=== PATIENT | female | born 1960 | race Caucasian/White ===

== ENCOUNTER 2019-07-21 16:53 | Inpatient (IN) | payer OTHER ==
[2019-07-21 19:17] LABS: BASO % 0.4 % (0-2.0); EOS % 1.1 % (0-4.5); HEMATOCRIT 33.9 % (32.4-45.2); HEMOGLOBIN 11.6 GM/dL (10.7-15.3); LYMPH % 32.5 % (8-40); MCH 36.9 pg (25.7-33.7); MCHC 34.1 g/dl (32.0-36.0); MEAN CELL VOLUME 107.9 fl (80-96); MEAN PLT VOLUME 9.2 fl (7.5-11.1); MONO % 12.8 % (3.8-10.2); NEUT % 53.2 % (42.8-82.8); PLATELET COUNT 222 K/MM3 (134-434); RBC 3.14 M/mm3 (3.60-5.2); RDW 15.3 % (11.6-15.6)
[2019-07-21 19:38] LABS: INR 1.8 (0.83-1.09); PROTHROMBIN TIME (PATIENT) 21.4 SEC (9.7-13.0)
[2019-07-21 19:41] LABS: ACTIVATED PTT 32.1 SECONDS (25.2-36.5)
[2019-07-21 20:04] LABS: ALBUMIN 1.6 g/dl (3.4-5.0); BILIRUBIN,TOTAL 3.6 mg/dL (0.2-1); BLOOD UREA NITROGEN 3.3 mg/dL (7-18); CALCIUM 7.2 mg/dL (8.5-10.1); CREATININE 0.8 mg/dL (0.55-1.3); MAGNESIUM 1.7 mg/dL (1.8-2.4); TOT PROT 9.1 g/dl (6.4-8.2)
[2019-07-21 20:05] LABS: POTASSIUM 1.8 mmol/L (3.5-5.1)
[2019-07-21] MEDS ORDERED: MAGNESIUM SULF 50% (8.12 MEQ/2 ML-1 GM VIAL) IVPB ONE (20:10)
[2019-07-21] MEDS ORDERED: LACTULOSE 20 GM/30 ML UDC (FOR ORAL USE ONLY) PO ONE (20:18)
[2019-07-21] MEDS ORDERED: POTASSIUM CHLORIDE ORAL LIQUID 20 MEQ/15 ML PO ONE (20:19)
[2019-07-21] MEDS ORDERED: FOLIC ACID INJECTION - 1 MG, THIAMINE HCL 100 MG, MULTIVIT INJECTION ADULT 10 ML in SOD... IVPB ONE (20:21)
[2019-07-21] MEDS ORDERED: LACTULOSE 20 GM/30 ML UDC (FOR ORAL USE ONLY) ONE (20:26)
[2019-07-21] MEDS ORDERED: POTASSIUM CHLORIDE ORAL LIQUID 20 MEQ/15 ML ONE (20:26)
[2019-07-21] MEDS ORDERED: MAGNESIUM 1GM/D5W - 2 GM/200 ML IVPB IVPB ONE (20:26)
--- NOTE | 2019-07-21 20:27 | PDOC ---
*Physical Exam - Vital Signs Last Vital Signs Temp Pulse Resp BP Pulse Ox 98 F 96 H 22 H 119/60 98 07/21/19 17:04 07/21/19 17:04 07/21/19 17:04 07/21/19 17:04 07/21/19 17:04 - Physical Exam 07/21/19 20:31 gen: awake, alert oriented to person place and time, jaundiced, confused at times consistent with hepatic encephalopathy heart: +s1s2 reg lungs: cta b/l, tachypnic abd: soft, nt, ascites, fluid wave ext: no c/c/e Heart Score/ECG Review - ECG Intrepretation Comment:: 07/21/19 20:49 sinus at 98, 1st degree av block, nl axis, qtc 566, abnl ekg ED Treatment Course - LABORATORY CBC & Chemistry Diagram: 07/21/19 17:34 07/21/19 17:34 - ADDITIONAL ORDERS Additional order review: Laboratory Results 07/21/19 07/21/19 07/21/19 17:34 17:34 17:34 PT with INR 21.40 H INR 1.80 H PTT (Actin FS) 32.1 Sodium 135 L Potassium 1.8 L* Chloride 90 L Carbon Dioxide 32 Anion Gap 12 BUN 3.3 L Creatinine 0.8 Est GFR (CKD-EPI)AfAm 93.53 Est GFR (CKD-EPI)NonAf 80.70 Random Glucose 120 H Lactic Acid 5.8 H* Calcium 7.2 L Magnesium 1.7 L Total Bilirubin 3.6 H AST 168 H ALT 48 Alkaline Phosphatase 137 H Ammonia Creatine Kinase 1303 H Troponin I 0.02 Total Protein 9.1 H Albumin 1.6 L Lipase 182 07/21/19 17:34 PT with INR INR PTT (Actin FS) Sodium Potassium Chloride Carbon Dioxide Anion Gap BUN Creatinine Est GFR (CKD-EPI)AfAm Est GFR (CKD-EPI)NonAf Random Glucose Lactic Acid Calcium Magnesium Total Bilirubin AST ALT Alkaline Phosphatase Ammonia 117.40 H Creatine Kinase Troponin I Total Protein Albumin Lipase 07/21/19 17:34 RBC 3.14 L MCV 107.9 H MCHC 34.1 RDW 15.3 D MPV 9.2 Neutrophils % 53.2 Lymphocytes % 32.5 D Monocytes % 12.8 H Eosinophils % 1.1 Basophils % 0.4 Medical Decision Making - Medical Decision Making 07/21/19 20:24 pt signed out from the midlevel provider for further eval of abnl labs -pt with ammonia >100 -pt with hx of etoh abuse, drinks daily -now jaundiced, ascites and distended abd -no prior hx of cirrhosis, but concern for liver failure and hepatic encephalopathy -elevated inr -k 1.8 mag 1.7 -pt will need icu admission for electrolyte abnl and hepatic encephalopathy 07/21/19 20:27 ultrasound ordered 07/21/19 21:21 resident discussed the case with gi i have discussed the case with enrique pt will be accepted to the ICU Discharge - Discharge Information Problems reviewed: Yes Clinical Impression/Diagnosis: Abdominal pain, Jaundice, Ascites, Hypokalemia, Hypomagnesemia, Alcohol abuse, Hepatic encephalopathy, Hypoalbuminemia Condition: Critical - Admission Yes - Follow up/Referral - Patient Discharge Instructions - Post Discharge Activity
--- NOTE | 2019-07-21 20:28 | PDOC ---
History of Present Illness - General Chief Complaint: Substance Abuse Stated Complaint: ABD PAIN Time Seen by Provider: 07/21/19 17:38 History Source: Patient Exam Limitations: No Limitations Past History - Past Medical History Allergies/Adverse Reactions: Allergies Allergy/AdvReac Type Severity Reaction Status Date / Time No Known Allergies Allergy Verified 07/21/19 17:01 Home Medications: Ambulatory Orders Citalopram Hydrobromide [Celexa -] 40 mg PO DAILY 03/02/14 Haloperidol 2 mg PO DAILY 03/02/14 Quetiapine Fumarate [Seroquel -] 200 mg PO HS 03/02/14 hydrOXYzine PAMOATE [Vistaril -] 50 mg PO TID 03/02/14 Asthma: Yes COPD: No HTN: Yes Liver Disease: Yes Other medical history: ALCOHOLISM, BEER DAILY - Psycho Social/Smoking Cessation Hx Smoking Status: Yes Smoking History: Never smoked Number of Cigarettes Smoked Daily: 3 'Breaking Loose' booklet given: 03/02/14 Hx Alcohol Use: Yes (daily) Drug/Substance Use Hx: No *Physical Exam - Vital Signs Last Vital Signs Temp Pulse Resp BP Pulse Ox 98 F 96 H 22 H 119/60 98 07/21/19 17:04 07/21/19 17:04 07/21/19 17:04 07/21/19 17:04 07/21/19 17:04 ED Treatment Course - LABORATORY CBC & Chemistry Diagram: 07/21/19 17:34 07/21/19 17:34 - ADDITIONAL ORDERS Additional order review: Laboratory Results 07/21/19 07/21/19 07/21/19 17:34 17:34 17:34 PT with INR 21.40 H INR 1.80 H PTT (Actin FS) 32.1 Sodium 135 L Potassium 1.8 L* Chloride 90 L Carbon Dioxide 32 Anion Gap 12 BUN 3.3 L Creatinine 0.8 Est GFR (CKD-EPI)AfAm 93.53 Est GFR (CKD-EPI)NonAf 80.70 Random Glucose 120 H Lactic Acid 5.8 H* Calcium 7.2 L Magnesium 1.7 L Total Bilirubin 3.6 H AST 168 H ALT 48 Alkaline Phosphatase 137 H Ammonia Creatine Kinase 1303 H Creatine Kinase Index 0.3 CK-MB (CK-2) 4.2 H Troponin I 0.02 Total Protein 9.1 H Albumin 1.6 L Lipase 182 07/21/19 17:34 PT with INR INR PTT (Actin FS) Sodium Potassium Chloride Carbon Dioxide Anion Gap BUN Creatinine Est GFR (CKD-EPI)AfAm Est GFR (CKD-EPI)NonAf Random Glucose Lactic Acid Calcium Magnesium Total Bilirubin AST ALT Alkaline Phosphatase Ammonia 117.40 H Creatine Kinase Creatine Kinase Index CK-MB (CK-2) Troponin I Total Protein Albumin Lipase 07/21/19 17:34 RBC 3.14 L MCV 107.9 H MCHC 34.1 RDW 15.3 D MPV 9.2 Neutrophils % 53.2 Lymphocytes % 32.5 D Monocytes % 12.8 H Eosinophils % 1.1 Basophils % 0.4 - RADIOLOGY Radiology Studies Ordered: Category Date Time Status CHEST X-RAY PORTABLE* [RAD] Stat Radiology 07/21/19 20:22 Ordered
--- NOTE | 2019-07-21 20:35 | PDOC ---
History of Present Illness - General Chief Complaint: Substance Abuse Stated Complaint: ABD PAIN Time Seen by Provider: 07/21/19 17:38 History Source: Patient Exam Limitations: No Limitations - History of Present Illness Initial Comments: 07/21/19 20:28 59-year-old female with history of hypertension, anxiety, depression and alcohol abuse presents accompanied by son with complaint of constant general abdominal pain, vomiting for 4 days. Son reports patient has been incoherent and confused for the past 2 days. Last alcohol drink was yesterday, denies chest pain, shortness of breath, diarrhea, urinary complaints. Last bowel movement was 2 days ago. ROS: GENERAL/CONSTITUTIONAL: Positive confusion, no fever, chills, weakness, dizziness HEAD, EYES, EARS, NOSE AND THROAT: No changes in vision, No ear pain or discharge, No sore throat CARDIOVASCULAR: No chest pain RESPIRATORY: No shortness of breath or cough GASTROINTESTINAL: Positive abdominal pain, vomiting, denies diarrhea GENITOURINARY: No dysuria MUSCULOSKELETAL: No neck or back pain SKIN: No rash NEUROLOGIC: No headache, vertigo, loss of consciousness, or loss of sensation PE: GENERAL: Ill-appearing, appears uncomfortable HEAD: NCAT EYES: Icteric, pupils equal, round and reactive to light ENT: pharynx: no erythema, no exudate, uvula midline NECK: supple CHEST: nontender RESP: clear, no w/r/r CARDIO: rrr, no m/g/r ABD: +BS, soft, tenderness to palpation throughout, distention BACK: no midline spinal ttp, no CVAT EXTREMITIES: Normal range of motion, no pitting edema NEUROLOGICAL: Alert and oriented x3 SKIN: Warm, Dry Is this a multiple visit Asthma Patient?: No Past History - Past Medical History Allergies/Adverse Reactions: Allergies Allergy/AdvReac Type Severity Reaction Status Date / Time No Known Allergies Allergy Verified 07/21/19 17:01 Home Medications: Ambulatory Orders Citalopram Hydrobromide [Celexa -] 40 mg PO DAILY 03/02/14 Haloperidol 2 mg PO DAILY 03/02/14 Quetiapine Fumarate [Seroquel -] 200 mg PO HS 03/02/14 hydrOXYzine PAMOATE [Vistaril -] 50 mg PO TID 03/02/14 Asthma: Yes COPD: No HTN: Yes Liver Disease: Yes Other medical history: ALCOHOLISM, BEER DAILY - Psycho Social/Smoking Cessation Hx Smoking Status: Yes Smoking History: Never smoked Number of Cigarettes Smoked Daily: 3 'Breaking Loose' booklet given: 03/02/14 Hx Alcohol Use: Yes (daily) Drug/Substance Use Hx: No *Physical Exam - Vital Signs Last Vital Signs Temp Pulse Resp BP Pulse Ox 98 F 96 H 22 H 119/60 98 07/21/19 17:04 07/21/19 17:04 07/21/19 17:04 07/21/19 17:04 07/21/19 17:04 ED Treatment Course - LABORATORY CBC & Chemistry Diagram: 07/21/19 17:34 07/21/19 17:34 - ADDITIONAL ORDERS Additional order review: Laboratory Results 07/21/19 07/21/19 07/21/19 17:34 17:34 17:34 PT with INR 21.40 H INR 1.80 H PTT (Actin FS) 32.1 Sodium 135 L Potassium 1.8 L* Chloride 90 L Carbon Dioxide 32 Anion Gap 12 BUN 3.3 L Creatinine 0.8 Est GFR (CKD-EPI)AfAm 93.53 Est GFR (CKD-EPI)NonAf 80.70 Random Glucose 120 H Lactic Acid 5.8 H* Calcium 7.2 L Magnesium 1.7 L Total Bilirubin 3.6 H AST 168 H ALT 48 Alkaline Phosphatase 137 H Ammonia Creatine Kinase 1303 H Creatine Kinase Index 0.3 CK-MB (CK-2) 4.2 H Troponin I 0.02 Total Protein 9.1 H Albumin 1.6 L Lipase 182 07/21/19 17:34 PT with INR INR PTT (Actin FS) Sodium Potassium Chloride Carbon Dioxide Anion Gap BUN Creatinine Est GFR (CKD-EPI)AfAm Est GFR (CKD-EPI)NonAf Random Glucose Lactic Acid Calcium Magnesium Total Bilirubin AST ALT Alkaline Phosphatase Ammonia 117.40 H Creatine Kinase Creatine Kinase Index CK-MB (CK-2) Troponin I Total Protein Albumin Lipase 07/21/19 17:34 RBC 3.14 L MCV 107.9 H MCHC 34.1 RDW 15.3 D MPV 9.2 Neutrophils % 53.2 Lymphocytes % 32.5 D Monocytes % 12.8 H Eosinophils % 1.1 Basophils % 0.4 Medical Decision Making - Medical Decision Making 07/21/19 20:32 59-year-old female with history of hypertension, anxiety, depression, alcohol abuse presenting with abdominal pain and vomiting for 4 days. Accompanied by son who states patient has been confused for the past 2 days. Labs, EKG, chest x-ray and CTAP w/con ordered Labs reviewed : K 1.8 lactate 5.8 Mg 1.7 Patient placed on a monitor transferred over to Dr. Guaman in the main ED for critical care and ICU admission Discharge - Discharge Information Problems reviewed: Yes Clinical Impression/Diagnosis: Abdominal pain Qualifiers: Abdominal location: generalized Qualified Code(s): R10.84 - Generalized abdominal pain Condition: Critical - Follow up/Referral - Patient Discharge Instructions - Post Discharge Activity
--- NOTE | 2019-07-21 20:36 | PDOC ---
*Physical Exam - Vital Signs Last Vital Signs Temp Pulse Resp BP Pulse Ox 98 F 96 H 22 H 119/60 98 07/21/19 17:04 07/21/19 17:04 07/21/19 17:04 07/21/19 17:04 07/21/19 17:04 - Physical Exam 07/21/19 20:31 Patient was signed out to me by Emily Terry for deranged lab values in the setting of ETOH abuse. Patient is a 59 yo F with hx of ETOH abuse (per the patient, she drinks hard liquor and now using beers per the son) presents to the emergency department with AMS in the setting of a distended abdomen. Per the patient, she has had a distended abdomen with diffuse pain for more than a week. She denies a hx of liver disease or needing a paracentesis. Per the son, he states that she has been confused this week and was mixing up her sentences. Denies the following: fevers, chills, chest pain, SOB, nausea, dysuria, hematuria, and leg pain/ swelling. Allergies: NKDA ED Treatment Course - LABORATORY CBC & Chemistry Diagram: 07/28/19 06:45 07/28/19 06:45 - ADDITIONAL ORDERS Additional order review: Laboratory Results 07/21/19 07/21/19 07/21/19 17:34 17:34 17:34 PT with INR 21.40 H INR 1.80 H PTT (Actin FS) 32.1 Sodium 135 L Potassium 1.8 L* Chloride 90 L Carbon Dioxide 32 Anion Gap 12 BUN 3.3 L Creatinine 0.8 Est GFR (CKD-EPI)AfAm 93.53 Est GFR (CKD-EPI)NonAf 80.70 Random Glucose 120 H Lactic Acid 5.8 H* Calcium 7.2 L Magnesium 1.7 L Total Bilirubin 3.6 H AST 168 H ALT 48 Alkaline Phosphatase 137 H Ammonia Creatine Kinase 1303 H Creatine Kinase Index 0.3 CK-MB (CK-2) 4.2 H Troponin I 0.02 Total Protein 9.1 H Albumin 1.6 L Lipase 182 07/21/19 17:34 PT with INR INR PTT (Actin FS) Sodium Potassium Chloride Carbon Dioxide Anion Gap BUN Creatinine Est GFR (CKD-EPI)AfAm Est GFR (CKD-EPI)NonAf Random Glucose Lactic Acid Calcium Magnesium Total Bilirubin AST ALT Alkaline Phosphatase Ammonia 117.40 H Creatine Kinase Creatine Kinase Index CK-MB (CK-2) Troponin I Total Protein Albumin Lipase 07/21/19 17:34 RBC 3.14 L MCV 107.9 H MCHC 34.1 RDW 15.3 D MPV 9.2 Neutrophils % 53.2 Lymphocytes % 32.5 D Monocytes % 12.8 H Eosinophils % 1.1 Basophils % 0.4 - RADIOLOGY Radiology Studies Ordered: Category Date Time Status CHEST X-RAY PORTABLE* [RAD] Stat Radiology 07/21/19 20:22 Ordered ABDOMEN US [US] Stat Ultrasound 07/21/19 20:27 Ordered Medical Decision Making - Medical Decision Making 07/21/19 20:[address] Martinez. He states lactulose q4-a6 until diarrhea ensues. Will have Dr. Sanders follow with GI service. Laboratory Tests 07/21/19 07/21/19 07/21/19 17:34 17:34 17:34 WBC 11.0 H RBC 3.14 L Hgb 11.6 Hct 33.9 D MCV 107.9 H MCH 36.9 H MCHC 34.1 RDW 15.3 D Plt Count 222 MPV 9.2 Absolute Neuts (auto) 5.9 Neutrophils % 53.2 Lymphocytes % 32.5 D Monocytes % 12.8 H Eosinophils % 1.1 Basophils % 0.4 Nucleated RBC % 2 H Anisocytosis 2+ Macrocytosis 2+ PT with INR INR PTT (Actin FS) Sodium 135 L Potassium 1.8 L* Chloride 90 L Carbon Dioxide 32 Anion Gap 12 BUN 3.3 L Creatinine 0.8 Est GFR (CKD-EPI)AfAm 93.53 Est GFR (CKD-EPI)NonAf 80.70 Random Glucose 120 H Lactic Acid Calcium 7.2 L Magnesium 1.7 L Total Bilirubin 3.6 H AST 168 H ALT 48 Alkaline Phosphatase 137 H Ammonia 117.40 H Creatine Kinase 1303 H Creatine Kinase Index 0.3 CK-MB (CK-2) 4.2 H Troponin I 0.02 Total Protein 9.1 H Albumin 1.6 L Lipase 182 07/21/19 07/21/19 17:34 17:34 WBC RBC Hgb Hct MCV MCH MCHC RDW Plt Count MPV Absolute Neuts (auto) Neutrophils % Lymphocytes % Monocytes % Eosinophils % Basophils % Nucleated RBC % Anisocytosis Macrocytosis PT with INR 21.40 H INR 1.80 H PTT (Actin FS) 32.1 Sodium Potassium Chloride Carbon Dioxide Anion Gap BUN Creatinine Est GFR (CKD-EPI)AfAm Est GFR (CKD-EPI)NonAf Random Glucose Lactic Acid 5.8 H* Calcium Magnesium Total Bilirubin AST ALT Alkaline Phosphatase Ammonia Creatine Kinase Creatine Kinase Index CK-MB (CK-2) Troponin I Total Protein Albumin Lipase hypomagnesemia, hypokalemia, elevation in lactic acid, elevation in ammonia, elevation in INR, elevation in CK, and hypoalbuminemia noted. lytes were replenished. Patient likely has underlying liver cirrhosis given hx of alcohol abuse and derangement of labs of note the INR and albumin patient was admitted to ICU for further management. GI following the case. Patient admitted for hepatic encephalopathy with multiple metabolic derangements. US results show moderate ascites with likely hepatic cirrhosis with GB sludge noted. EKG: NSR with prolonged QT (566 ms) with prolonged MT interval of [address] elevations or depressions. Discharge - Discharge Information Problems reviewed: Yes Clinical Impression/Diagnosis: Abdominal pain, Jaundice, Ascites, Hypokalemia, Hypomagnesemia, Alcohol abuse, Hepatic encephalopathy, Hypoalbuminemia Disposition: VNS/HOME HEALTH CARE - Follow up/Referral - Patient Discharge Instructions - Post Discharge Activity
[2019-07-21] MEDS ORDERED: KCL 10 MEQ IVPB 10 MEQ/100 ML INFUS.BAG IVPB ONE ×2 (21:31→22:53)
[2019-07-21] MEDS: KCL 10 MEQ IVPB 10 MEQ/100 ML INFUS.BAG IVPB SCH (21:41)
[2019-07-21 22:00] LABS: ANISOCYTOSIS 2+; MACROCYTOSIS 2+
[2019-07-21 23:17] LABS: HEMATOCRIT 31.7 % (32.4-45.2); MCH 37.3 pg (25.7-33.7); MCHC 34.8 g/dl (32.0-36.0); MEAN CELL VOLUME 107.4 fl (80-96); MEAN PLT VOLUME 8.8 fl (7.5-11.1); PLATELET COUNT 200 K/MM3 (134-434); RBC 2.96 M/mm3 (3.60-5.2); RDW 15.3 % (11.6-15.6); WHITE BLOOD COUNT 9.9 K/mm3 (4.0-10.0)
[2019-07-21] MEDS ORDERED: MORPHINE SULFATE 2 MG/ML VIAL IVPUSH ONE (23:32)
[2019-07-21] MEDS ORDERED: LORazepam 2 MG/ML SDV VIAL IVPUSH PRN (23:33)
[2019-07-22] LABS: ALBUMIN 1.6 g/dl (3.4-5.0); CALCIUM 7.2 mg/dL (8.5-10.1); CREATININE 0.8 mg/dL (0.55-1.3); MAGNESIUM 2.2 mg/dL (1.8-2.4); PHOSPHOROUS 2.1 mg/dL (2.5-4.9); TOT PROT 8.7 g/dl (6.4-8.2)
[2019-07-22 00:02] LABS: BLOOD UREA NITROGEN 2.8 mg/dL (7-18); POTASSIUM 2.1 mmol/L (3.5-5.1)
--- NOTE | 2019-07-22 00:02 | HP ---
CHIEF COMPLAINT: incoherance, lethargy, abdominal pain and anorexia for days PCP:Dr. Rose HISTORY OF PRESENT ILLNESS: 59 year old female mainly Portuguese speaking female with history of hypertension, asthma, psychiatric issues, and daily alcohol use who presents as per family with symptoms of confusion, lethargy, abdominal pain and anorexia for 4 days. She denied shortness of breath, chest pain,dizziness, palpitations, nausea, vomiting, diarrhea or constipation. ER course was notable for: (1)Transamitis/Hyperbilirubinemia (2)Hypercoagulopathy (3)Liver- US with ascites (4)Abnormal EKG with prolonged QTC interval of [address] depressions V3-V6 (5)Severe Hypokalmeia/Hypomagnesia (6) Hypoalbuminemia Recent Travel: no PAST MEDICAL HISTORY: hypertension asthma psychiatric issues PAST SURGICAL HISTORY: none Social History: Smoking:ex smoker, qui2t 2 years ago Alcohol:yes, drank beer for 20years, now drinks several smirnoff 22ounces/daily Drugs: no Allergies No Known Allergies Allergy (Verified 07/21/19 17:01) HOME MEDICATIONS: Home Medications Medication Instructions Recorded Citalopram Hydrobromide [Celexa -] 40 mg PO DAILY 03/02/14 Haloperidol 2 mg PO DAILY 03/02/14 Quetiapine Fumarate [Seroquel -] 200 mg PO HS 03/02/14 hydrOXYzine PAMOATE [Vistaril -] 50 mg PO TID 03/02/14 REVIEW OF SYSTEMS CONSTITUTIONAL: Absent: fever, chills, diaphoresis, generalized weakness, malaise, loss of appetite, weight change HEENT: Absent: rhinorrhea, nasal congestion, throat pain, throat swelling, difficulty swallowing, mouth swelling, ear pain, eye pain, visual changes CARDIOVASCULAR: Absent: chest pain, syncope, palpitations, irregular heart rate, lightheadedness , peripheral edema RESPIRATORY: Absent: cough, shortness of breath, dyspnea with exertion, orthopnea, wheezing, stridor, hemoptysis GASTROINTESTINAL: Absent: abdominal pain, abdominal distension, nausea, vomiting, diarrhea, constipation, melena, hematochezia GENITOURINARY: Absent: dysuria, frequency, urgency, hesitancy, hematuria, flank pain, genital pain MUSCULOSKELETAL: Absent: myalgia, arthralgia, joint swelling, back pain, neck pain SKIN: Absent: rash, itching, pallor HEMATOLOGIC/IMMUNOLOGIC: Absent: easy bleeding, easy bruising, lymphadenopathy, frequent infections ENDOCRINE: Absent: unexplained weight gain, unexplained weight loss, heat intolerance, cold intolerance NEUROLOGIC: Absent: headache, focal weakness or paresthesias, dizziness, unsteady gait, seizure, mental status changes, bladder or bowel incontinence PSYCHIATRIC: Absent: anxiety, depression, suicidal or homicidal ideation, hallucinations. PHYSICAL EXAMINATION Vital Signs - 24 hr 07/21/19 07/21/19 07/21/19 17:04 20:38 22:27 Temperature 98 F Pulse Rate 96 H Pulse Rate [ 104 H Left] Respiratory 22 H 18 Rate Blood Pressure 119/60 Blood Pressure 144/87 [Left Arm] O2 Sat by Pulse 98 100 98 Oximetry (%) GENERAL: awake, alert, and fully oriented, no acute distress HEAD: normal EYES: pupils equal, round and reactive to light EARS, NOSE, THROAT: ears normal, nares patent, oropharynx clear without exudates. moist mucous membranes NECK: no JVD LUNGS: breath sounds diminished nonlabored breathing effort no use of acessory muscles HEART: regular rate and rhythm no murmurs ABDOMEN: distended +ascites tender MUSCULOSKELETAL: normal range of motion at all joints UPPER EXTREMITIES: 2+ pulses, warm well-perfused mild edema present LOWER EXTREMITIES: 2+ pulses warm, well-perfused no pitting edema NEUROLOGICAL: normal speech no facial droop no facial grimace PSYCHIATRIC: cooperative good eye contact SKIN: icteric warm on palpation no cyanosis Laboratory Results - last 24 hr 07/21/19 07/21/19 07/21/19 17:34 17:34 17:34 WBC 11.0 H RBC 3.14 L Hgb 11.6 Hct 33.9 D MCV 107.9 H MCH 36.9 H MCHC 34.1 RDW 15.3 D Plt Count 222 MPV 9.2 Absolute Neuts (auto) 5.9 Neutrophils % 53.2 Lymphocytes % 32.5 D Monocytes % 12.8 H Eosinophils % 1.1 Basophils % 0.4 Nucleated RBC % 2 H Anisocytosis 2+ Macrocytosis 2+ PT with INR INR PTT (Actin FS) Sodium 135 L Potassium 1.8 L* Chloride 90 L Carbon Dioxide 32 Anion Gap 12 BUN 3.3 L Creatinine 0.8 Est GFR (CKD-EPI)AfAm 93.53 Est GFR (CKD-EPI)NonAf 80.70 Random Glucose 120 H Lactic Acid Calcium 7.2 L Magnesium 1.7 L Total Bilirubin 3.6 H AST 168 H ALT 48 Alkaline Phosphatase 137 H Ammonia 117.40 H Creatine Kinase 1303 H Creatine Kinase Index 0.3 CK-MB (CK-2) 4.2 H Troponin I 0.02 Total Protein 9.1 H Albumin 1.6 L Lipase 182 07/21/19 07/21/19 17:34 17:34 WBC RBC Hgb Hct MCV MCH MCHC RDW Plt Count MPV Absolute Neuts (auto) Neutrophils % Lymphocytes % Monocytes % Eosinophils % Basophils % Nucleated RBC % Anisocytosis Macrocytosis PT with INR 21.40 H INR 1.80 H PTT (Actin FS) 32.1 Sodium Potassium Chloride Carbon Dioxide Anion Gap BUN Creatinine Est GFR (CKD-EPI)AfAm Est GFR (CKD-EPI)NonAf Random Glucose Lactic Acid 5.8 H* Calcium Magnesium Total Bilirubin AST ALT Alkaline Phosphatase Ammonia Creatine Kinase Creatine Kinase Index CK-MB (CK-2) Troponin I Total Protein Albumin Lipase ASSESSMENT/PLAN: 59 year old female mainly Portuguese speaking female with history of hypertension, asthma, psychiatric issues, and daily alcohol use who presents with symptoms of confusion, lethargy, abdominal pain and anorexia for 4 days. She was found to have transamitis,hypercoagulopathy, severe hypokalmeia, hypomagnesia, hypoalbuminemia. Liver US demonstrated moderate ascites and probable hepatic cirrhosis. She was also found to have an abnormal EKG with prolonged QTC interval and ST depressions V3-V6. She is being admitted to the ICU for critical care monitoring and management. 1. Alcohol Abuse/Hepatic Encephalopathy/Probable Cirrhosis [place] with elevated ammonia level, transaminitis, hyperbilirubinemia, hypercoagulopathy, hypoalbuminemia, on clinical exam with significant ascites --Lactulose 20mg q4hr --Check hepatitis panel --GI consulted- Dr. Cleveland --Thiamine and foic acid daily --Ativan prn --Likely will need paracentesis and will keep NPO 2. Severe Hypokalemia/ Hypomagnesia Repleted --Monitor on telemetry closely --Repeat BMP in am 3. QTc Prolongation --Hold seroquel and QTc prolongation meds --Monitor on telemetry --Cardiology - Dr. Jacob consulted --Repeat EKG ordered for am 4. Asthma No acute Exacerbation --Pulmonary- Dr. Zuñiga consulted --Albuterol neulizers prn 5. Hypertension Controlled Not on meds FEN no IV fluids monitor electrolytes with daily BMP low sodium diet DVT Prophylaxsis TEDS/SCDS Visit type - Emergency Visit Emergency Visit: Yes ED Registration Date: 07/21/19 Care time: The patient presented to the Emergency Department on the above date and was hospitalized for further evaluation of their emergent condition. - New Patient This patient is new to me today: Yes Date on this admission: 07/22/19 - Critical Care Critical Care patient: No
--- NOTE | 2019-07-22 00:23 | CONSULT ---
Consultation: REQUESTING PROVIDER: CONSULT REQUEST: We have been asked to medically evaluate this patient for electrolyte and EKG abnormalities with concern for arrhythmia. HISTORY OF PRESENT ILLNESS: 59 y/o F with hx of HTN, anxiety, depression, and alcohol abuse presenting to the ED with abdominal pain, emesis, and AMS. Pain is periumbilical and epigastric without radiation. Pain is difficult to characterize. The family at bedside reports she became acutely disoriented and appeared very confused. This is in the setting of a worsening distended abdomen which the family reports has been occurring over the past 2 months. She reports continued nausea. She denies fever, chills, chest pain, SOB, syncope, dysuria, hematemesis, melena, BPR. REVIEW OF SYSTEMS: CONSTITUTIONAL: Absent: fever, chills, diaphoresis, generalized weakness, malaise, loss of appetite, weight change HEENT: Absent: rhinorrhea, nasal congestion, throat pain, throat swelling, difficulty swallowing, mouth swelling, ear pain, eye pain, visual changes CARDIOVASCULAR: Absent: chest pain, syncope, palpitations, irregular heart rate, lightheadedness , peripheral edema RESPIRATORY: Absent: cough, shortness of breath, dyspnea with exertion, orthopnea, wheezing, stridor, hemoptysis GASTROINTESTINAL: Absent: diarrhea, constipation, melena, hematochezia GENITOURINARY: Absent: dysuria, frequency, urgency, hesitancy, hematuria, flank pain, genital pain MUSCULOSKELETAL: Absent: myalgia, arthralgia, joint swelling, back pain, neck pain SKIN: Absent: rash, itching, pallor HEMATOLOGIC/IMMUNOLOGIC: Absent: easy bleeding, easy bruising, lymphadenopathy, frequent infections ENDOCRINE: Absent: unexplained weight gain, unexplained weight loss, heat intolerance, cold intolerance NEUROLOGIC: Absent: headache, focal weakness or paresthesias, dizziness, unsteady gait, seizure, mental status changes, bladder or bowel incontinence PSYCHIATRIC: Absent: anxiety, depression, suicidal or homicidal ideation, hallucinations. PHYSICAL EXAMINATION Vital Signs - 24 hr 07/21/19 07/21/19 07/21/19 17:04 20:38 22:27 Temperature 98 F Pulse Rate 96 H Pulse Rate [ 104 H Left] Respiratory 22 H 18 Rate Blood Pressure 119/60 Blood Pressure 144/87 [Left Arm] O2 Sat by Pulse 98 100 98 Oximetry (%) GENERAL: Awake, alert, and fully oriented, in no acute distress. HEAD: Normal with no signs of trauma. EYES: Pupils equal, round and reactive to light, extraocular movements intact, scleral icterus, conjunctiva clear. No lid lag. EARS, NOSE, THROAT: Ears normal, nares patent, oropharynx clear without exudates. Moist mucous membranes. NECK: Normal range of motion, supple without lymphadenopathy, JVD, or masses. LUNGS: Breath sounds equal, clear to auscultation bilaterally. No wheezes, and no crackles. No accessory muscle use. HEART: Regular rate and rhythm, normal S1 and S2, +systolic murmur, BL LE 1+ edema ABDOMEN: Soft, nontender, distended and protuberant with +fluid wave, normoactive bowel sounds, no guarding, no rebound, no masses. No hepatomegaly or splenomegaly. MUSCULOSKELETAL: Normal range of motion at all joints. No bony deformities or tenderness. No CVA tenderness. LOWER EXTREMITIES: 2+ pulses, warm, well-perfused. No calf tenderness. No peripheral edema. NEUROLOGICAL: Cranial nerves II-XII intact. Normal speech. PSYCHIATRIC: Cooperative. Good eye contact. Appropriate mood and affect. SKIN: Warm, dry, normal turgor, no rashes or lesions noted. Laboratory Results - last 24 hr 07/21/19 07/21/19 07/21/19 17:34 17:34 17:34 WBC 11.0 H RBC 3.14 L Hgb 11.6 Hct 33.9 D MCV 107.9 H MCH 36.9 H MCHC 34.1 RDW 15.3 D Plt Count 222 MPV 9.2 Absolute Neuts (auto) 5.9 Neutrophils % 53.2 Lymphocytes % 32.5 D Monocytes % 12.8 H Eosinophils % 1.1 Basophils % 0.4 Nucleated RBC % 2 H Anisocytosis 2+ Macrocytosis 2+ PT with INR INR PTT (Actin FS) Sodium 135 L Potassium 1.8 L* Chloride 90 L Carbon Dioxide 32 Anion Gap 12 BUN 3.3 L Creatinine 0.8 Est GFR (CKD-EPI)AfAm 93.53 Est GFR (CKD-EPI)NonAf 80.70 Random Glucose 120 H Lactic Acid Calcium 7.2 L Magnesium 1.7 L Total Bilirubin 3.6 H AST 168 H ALT 48 Alkaline Phosphatase 137 H Ammonia 117.40 H Creatine Kinase 1303 H Creatine Kinase Index 0.3 CK-MB (CK-2) 4.2 H Troponin I 0.02 Total Protein 9.1 H Albumin 1.6 L Lipase 182 07/21/19 07/21/19 17:34 17:34 WBC RBC Hgb Hct MCV MCH MCHC RDW Plt Count MPV Absolute Neuts (auto) Neutrophils % Lymphocytes % Monocytes % Eosinophils % Basophils % Nucleated RBC % Anisocytosis Macrocytosis PT with INR 21.40 H INR 1.80 H PTT (Actin FS) 32.1 Sodium Potassium Chloride Carbon Dioxide Anion Gap BUN Creatinine Est GFR (CKD-EPI)AfAm Est GFR (CKD-EPI)NonAf Random Glucose Lactic Acid 5.8 H* Calcium Magnesium Total Bilirubin AST ALT Alkaline Phosphatase Ammonia Creatine Kinase Creatine Kinase Index CK-MB (CK-2) Troponin I Total Protein Albumin Lipase Active Medications Generic Name Dose Route Start Last Admin Trade Name Freq PRN Reason Stop Dose Admin Potassium Chloride 10 meq in 100 mls @ 100 mls/hr 07/21/19 20:30 07/21/19 21: 41 Potassium Chloride 10 Meq Premix Ivpb - IVPB 07/21/19 23:29 100 mls/hr Q60M DAYNE Administration Folic Acid 1 mg/ Thiamine HCl 1,000 mls @ 125 mls/hr 07/21/19 20:21 07/21/19 21:41 100 mg/ Multivitamins/Minerals IVPB 07/22/19 04:20 125 mls/hr 10 ml/ Sodium Chloride ONCE ONE Administration ASSESSMENT/PLAN: 59 y/o F with hx of HTN, anxiety, depression, and alcohol abuse presenting to the ED with abdominal pain, emesis, and AMS in the setting of increasing abdominal distension over the past 2 months. In the ED, was noted to have K1.8, Mg 1.7, with EKG pr interval 252, qtc 566. Concern for lyte abnormality and arrhythmia requiring icu admission Neuro: -alert and oriented, per family improving since arrival to ED -ammonia 117.40 -monitor CIWA; initiate ativan protocol if patient appears to be in withdrawals GI -AP 137, AST 168, ALT 48 -banana bag; lactulose per Dr Martinez -potential paracentesis once stable Renal: -K 1.8, Mg 1.7 -replete Cardio: -qtc 566; will repeat following intervention and trend -given severe electrolyte abnormalities in addition to prolonged qtc, will admit to icu for close monitoring of potential arrhythmias while repleting electrolytes Dispo: Accepted to ICU. We will continue to follow the patient. Thank you for this consultative opportunity. Visit type - Emergency Visit Emergency Visit: Yes ED Registration Date: 07/21/19 Care time: The patient presented to the Emergency Department on the above date and was hospitalized for further evaluation of their emergent condition. - New Patient This patient is new to me today: Yes Date on this admission: 07/22/19 - Critical Care Critical Care patient: Yes Total Critical Care Time (in minutes): 38 Critical Care Statement: The care of this patient involved high complexity decision making to prevent further life threatening deterioration of the patient 's condition and/or to evaluate & treat vital organ system(s) failure or risk of failure. ATTENDING PHYSICIAN STATEMENT I saw and evaluated the patient. I reviewed the resident's note and discussed the case with the resident. I agree with the resident's findings and plan as documented. SUBJECTIVE: OBJECTIVE: ASSESSMENT AND PLAN:
[2019-07-22] MEDS ORDERED: ALBUTEROL SO4 0.083% IH SOL 2.5 MG/3 ML VIAL.NEB. NEB PRN (00:27)
[2019-07-22] MEDS ORDERED: MORPHINE SULFATE 2 MG/ML VIAL ONE (01:07)
[2019-07-22] MEDS ORDERED: LACTULOSE 20 GM/30 ML UDC (FOR ORAL USE ONLY) ONE (01:07)
[2019-07-22] MEDS ORDERED: KCL 10 MEQ IVPB 20 MEQ/200 ML INFUS.BAG IVPB ONE (01:07)
[2019-07-22] MEDS: LACTULOSE 20 GM/30 ML UDC (FOR ORAL USE ONLY) PO SCH ×7 (01:18→23:19)
[2019-07-22] MEDS: KCL 10 MEQ IVPB 10 MEQ/100 ML INFUS.BAG IVPB SCH ×12 (01:18→21:03)
[2019-07-22] MEDS ORDERED: SODIUM CHLORIDE 1,000 ML IV SCH (06:15)
[2019-07-22 07:24] LABS: CREATININE 0.7 mg/dL (0.55-1.3)
[2019-07-22 07:27] LABS: BLOOD UREA NITROGEN 2.6 mg/dL (7-18); POTASSIUM 2.1 mmol/L (3.5-5.1)
[2019-07-22] MEDS ORDERED: POTASSIUM CHLORIDE ORAL LIQUID 20 MEQ/15 ML PO ONE (07:28)
[2019-07-22] MEDS ORDERED: POTASSIUM CHLORIDE 40 MEQ in SODIUM CHLORIDE 1,000 ML IVPB SCH (07:59)
--- NOTE | 2019-07-22 08:29 | PN ---
Progress Note, Physician History of Present Illness: 59 year old female mainly Malian speaking female with history of hypertension, asthma, psychiatric issues, and daily alcohol use who presents as per family with symptoms of confusion, lethargy, abdominal pain and anorexia for 4 days. She denied shortness of breath, chest pain,dizziness, palpitations, nausea, vomiting, diarrhea or constipation. - Current Medication List Current Medications: Active Medications Albuterol Sulfate (Ventolin 0.083% Nebulizer Soln -) 1 amp NEB RQID PRN PRN Reason: SHORT OF BREATH/WHEEZING Folic Acid (Folic Acid -) 1 mg PO DAILY DAYNE Ceftriaxone Sodium 2 gm/ (Dextrose) 50 mls @ 100 mls/hr IVPB DAILY DAYNE; Protocol Potassium Chloride (Potassium Chloride 10 Meq Premix Ivpb -) 10 meq in 100 mls @ 100 mls/hr IVPB Q60M DAYNE Stop: 07/22/19 10:29 Last Admin: 07/22/19 07:54 Dose: 100 mls/hr Potassium Chloride 40 meq/ (Sodium Chloride) 1,020 mls @ 75 mls/hr IVPB Q13H DAYNE Stop: 07/22/19 21:34 Lactulose (Cephulac (Oral Use)) 20 gm PO Q4H DAYNE Last Admin: 07/22/19 07:54 Dose: 20 gm Lorazepam (Ativan Injection -) 0.5 mg IVPUSH Q6H PRN PRN Reason: ANXIETY Last Admin: 07/22/19 04:04 Dose: 0.5 mg Thiamine HCl (Vitamin B1 -) 100 mg PO DAILY [facility] - Objective Vital Signs: Vital Signs Temperature 98.4 F 07/22/19 06:00 Pulse Rate 92 H 07/22/19 06:00 Respiratory Rate 16 07/22/19 06:00 Blood Pressure 156/73 07/22/19 06:00 O2 Sat by Pulse Oximetry (%) 98 07/22/19 02:51 Cardiovascular: Yes: S1, S2 Respiratory: Yes: Regular, CTA Bilaterally Gastrointestinal: Yes: Normal Bowel Sounds, Soft, Ascites, Distention Neurological: Yes: Lethargy, Weakness Labs: CBC, BMP 07/21/19 22:55 07/22/19 06:00 INR, PTT INR 1.80 (0.83-1.09) H 07/21/19 17:34 Problem List - Problems (1) Hepatic encephalopathy Assessment/Plan: LACTULOSE GI ON CASE Code(s): K72.90 - HEPATIC FAILURE, UNSPECIFIED WITHOUT COMA (2) Alcohol abuse Assessment/Plan: MONITOR FOR WITHDRAWALS Code(s): F10.10 - ALCOHOL ABUSE, UNCOMPLICATED (3) Hypokalemia Assessment/Plan: REPLACE AND MONITOR Code(s): E87.6 - HYPOKALEMIA (4) Prolonged QT interval Assessment/Plan: REPLACE ELECTROLYTES AND MONITOR Code(s): R94.31 - ABNORMAL ELECTROCARDIOGRAM [ECG] [EKG] (5) Ascites Assessment/Plan: GI IR FOR PARACENTSIS Code(s): R18.8 - OTHER ASCITES
[2019-07-22 08:36] LABS: MAGNESIUM 2.1 mg/dL (1.8-2.4)
[2019-07-22] MEDS ORDERED: DEXTROSE 5%-WATER - 50 ML IVPB ONE (08:58)
[2019-07-22] MEDS ORDERED: CEFTRIAXONE 2 GM in DEXTROSE 5%-WATER - 50 ML IVPB SCH (10:00)
[2019-07-22] MEDS ORDERED: THIAMINE HCL 100 MG TABLET (FP) PO SCH (10:00)
[2019-07-22] MEDS ORDERED: MUPIROCIN 2% TOPICAL OINTMENT FOR DECOLONIZATION NS SCH (10:00)
[2019-07-22] MEDS ORDERED: FOLIC ACID 1 MG TABLET (FP) PO SCH (10:00)
[2019-07-22] MEDS ORDERED: MAGNESIUM SULF 50% (8.12 MEQ/2 ML-1 GM VIAL) IVPB ONE (12:06)
[2019-07-22] MEDS ORDERED: POTASSIUM PHOSPHATE 30 MM in SODIUM CHLORIDE 250 ML IVPB ONE (12:08)
--- NOTE | 2019-07-22 12:25 | EKG ---
Test Reason : Blood Pressure : / mmHG Vent. Rate : 096 BPM Atrial Rate : 096 BPM P-R Int : 130 ms QRS Dur : 088 ms QT Int : 366 ms P-R-T Axes : 042 017 198 degrees QTc Int : 462 ms NORMAL SINUS RHYTHM NONSPECIFIC ST ABNORMALITY PROLONGED QT ABNORMAL ECG WHEN COMPARED WITH ECG OF 21-JUL-2019 17:13, [place] INTERVAL HAS DECREASED QT HAS SHORTENED Confirmed by ERNESTO MUNIZ MD ([id number]) on 07/22/2019 12:24:47 PM Referred By: CHRISTIAN LALA,MRUK Confirmed By:ERNESTO MUNIZ MD
[2019-07-22] MEDS ORDERED: POTASSIUM CHLORIDE 20 MEQ PREMIX IVPB 100 ML IVPB SCH (12:30)
[2019-07-22] MEDS ORDERED: SPIRONOLACTONE 25 MG TABLET (FP) PO SCH (12:45)
[2019-07-22] MEDS ORDERED: POTASSIUM CHLORIDE 40 MEQ in SODIUM CHLORIDE 0.45% 1,000 ML IVPB SCH (12:45)
[2019-07-22] MEDS ORDERED: KCL 10 MEQ IVPB 10 MEQ/100 ML INFUS.BAG IVPB SCH (12:45)
[2019-07-22] MEDS ORDERED: POTASSIUM PHOSPHATE IVPB SCH ×2 (13:00)
[2019-07-22] MEDS: POTASSIUM CHLORIDE 20 MEQ PREMIX IVPB 100 ML IVPB SCH ×2 (13:00→15:01)
[2019-07-22] MEDS ORDERED: POTASSIUM PHOSPHATE 30 MM in SODIUM CHLORIDE 250 ML IVPB SCH (13:00)
[2019-07-22] MEDS ORDERED: SODIUM CHLORIDE IVPB SCH ×2 (13:00)
--- NOTE | 2019-07-22 13:29 | PN ---
Teaching Attending Note Name of Resident: Tenzin Riggs ATTENDING PHYSICIAN STATEMENT I saw and evaluated the patient. I reviewed the resident's note and discussed the case with the resident. I agree with the resident's findings and plan as documented. SUBJECTIVE: Patient seen and examined in the ICU. Awake and responsive. Oriented to person and place but not date. Severe metabolic derangement noted. Intake & Output 07/19/19 07/20/19 07/21/19 07/22/19 23:59 23:59 23:59 23:59 Intake Total 300 Balance 300 Weight 182 lb 15.739 oz 188 lb 12.8 oz Last Vital Signs Temp Pulse Resp BP Pulse Ox 98.3 F 90 16 151/84 98 07/22/19 12:51 07/22/19 12:51 07/22/19 12:51 07/22/19 12:12 07/22/19 09:00 Active Medications Albuterol Sulfate (Ventolin 0.083% Nebulizer Soln -) 1 amp NEB RQID PRN PRN Reason: SHORT OF BREATH/WHEEZING Folic Acid (Folic Acid -) 1 mg PO DAILY DAYNE Last Admin: 07/22/19 09:18 Dose: 1 mg Ceftriaxone Sodium 2 gm/ (Dextrose) 50 mls @ 100 mls/hr IVPB DAILY DAYNE; Protocol Last Admin: 07/22/19 09:18 Dose: 100 mls/hr Potassium Chloride 40 meq/ (Sodium Chloride) 1,020 mls @ 100 mls/hr IVPB Q10H DAYNE Potassium Phosphate 30 mm/ (Sodium Chloride) 260 mls @ 43.333 mls/hr IVPB ASDIR DAYNE Last Admin: 07/22/19 13:00 Dose: 43.333 mls/hr Lactulose (Cephulac (Oral Use)) 20 gm PO Q4H DAYNE Last Admin: 07/22/19 11:21 Dose: Not Given Lorazepam (Ativan Injection -) 0.5 mg IVPUSH Q6H PRN PRN Reason: ANXIETY Last Admin: 07/22/19 04:04 Dose: 0.5 mg Potassium Chloride (Potassium Chloride 20 Meq Premix Ivpb -) 20 meq IVPB Q60M DAYNE Stop: 07/22/19 14:01 Last Admin: 07/22/19 13:00 Dose: 20 meq Spironolactone (Aldactone -) 25 mg PO DAILY DAYNE Last Admin: 07/22/19 13:05 Dose: 25 mg Thiamine HCl (Vitamin B1 -) 100 mg PO DAILY [facility] Last Admin: 07/22/19 09:19 Dose: 100 mg GENERAL: Awake and responsive, mildly confused, NAD and fully oriented, in no acute distress. HEAD: Normal with no signs of trauma. EYES: Pupils equal, round and reactive to light, extraocular movements intact, scleral icterus, conjunctiva clear. No lid lag. EARS, NOSE, THROAT: Ears normal, nares patent, oropharynx clear without exudates. Moist mucous membranes. NECK: Normal range of motion, supple without lymphadenopathy, JVD, or masses. LUNGS: Breath sounds equal, clear to auscultation bilaterally. No wheezes, and no crackles. No accessory muscle use. HEART: Regular rate and rhythm, normal S1 and S2, +systolic murmur, BL LE 1+ edema ABDOMEN: Soft, nontender, distended and protuberant with +fluid wave, normoactive bowel sounds, no guarding, no rebound, no masses. No hepatomegaly or splenomegaly. MUSCULOSKELETAL: Normal range of motion at all joints. No bony deformities or tenderness. No CVA tenderness. LOWER EXTREMITIES: 2+ pulses, warm, well-perfused. No calf tenderness. No peripheral edema. NEUROLOGICAL: Non-focal PSYCHIATRIC: Cooperative. Good eye contact. Appropriate mood and affect. SKIN: Warm, dry, normal turgor, no rashes or lesions noted. Laboratory Results - last 24 hr 07/21/19 07/21/19 07/21/19 17:34 17:34 17:34 WBC 11.0 H RBC 3.14 L Hgb 11.6 Hct 33.9 D MCV 107.9 H MCH 36.9 H MCHC 34.1 RDW 15.3 D Plt Count 222 MPV 9.2 Absolute Neuts (auto) 5.9 Neutrophils % 53.2 Lymphocytes % 32.5 D Monocytes % 12.8 H Eosinophils % 1.1 Basophils % 0.4 Nucleated RBC % 2 H Anisocytosis 2+ Macrocytosis 2+ PT with INR INR PTT (Actin FS) Sodium 135 L Potassium 1.8 L* Chloride 90 L Carbon Dioxide 32 Anion Gap 12 BUN 3.3 L Creatinine 0.8 Est GFR (CKD-EPI)AfAm 93.53 Est GFR (CKD-EPI)NonAf 80.70 Random Glucose 120 H Lactic Acid Calcium 7.2 L Phosphorus Magnesium 1.7 L Total Bilirubin 3.6 H AST 168 H ALT 48 Alkaline Phosphatase 137 H Ammonia 117.40 H Creatine Kinase 1303 H Creatine Kinase Index 0.3 CK-MB (CK-2) 4.2 H Troponin I 0.02 Total Protein 9.1 H Albumin 1.6 L Lipase 182 07/21/19 07/21/19 07/21/19 17:34 17:34 22:55 WBC RBC Hgb Hct MCV MCH MCHC RDW Plt Count MPV Absolute Neuts (auto) Neutrophils % Lymphocytes % Monocytes % Eosinophils % Basophils % Nucleated RBC % Anisocytosis Macrocytosis PT with INR 21.40 H INR 1.80 H PTT (Actin FS) 32.1 Sodium 138 Potassium 2.1 L* Chloride 94 L Carbon Dioxide 35 H Anion Gap 9 BUN 2.8 L* Creatinine 0.8 Est GFR (CKD-EPI)AfAm 93.53 Est GFR (CKD-EPI)NonAf 80.70 Random Glucose 122 H Lactic Acid 5.8 H* Calcium 7.2 L Phosphorus 2.1 L Magnesium 2.2 Total Bilirubin 3.0 H AST 162 H ALT 44 Alkaline Phosphatase 131 H Ammonia Creatine Kinase Creatine Kinase Index CK-MB (CK-2) Troponin I Total Protein 8.7 H Albumin 1.6 L Lipase 07/21/19 07/22/19 07/22/19 22:55 06:00 10:50 WBC 9.9 RBC 2.96 L Hgb 11.0 Hct 31.7 L MCV 107.4 H MCH 37.3 H MCHC 34.8 RDW 15.3 Plt Count 200 MPV 8.8 Absolute Neuts (auto) Neutrophils % Lymphocytes % Monocytes % Eosinophils % Basophils % Nucleated RBC % Anisocytosis Macrocytosis PT with INR INR PTT (Actin FS) Sodium 138 Potassium 2.1 L* Chloride 96 L Carbon Dioxide 35 H Anion Gap 7 L BUN 2.6 L* Creatinine 0.7 Est GFR (CKD-EPI)AfAm 109.91 Est GFR (CKD-EPI)NonAf 94.84 Random Glucose 107 H Lactic Acid 2.5 H* Calcium 7.0 L Phosphorus Magnesium 2.1 Total Bilirubin AST ALT Alkaline Phosphatase Ammonia Creatine Kinase Creatine Kinase Index CK-MB (CK-2) Troponin I Total Protein Albumin Lipase ASSESSMENT/PLAN: Metabolic Encephalopathy HTN Anxiety Depression Alcohol abuse Severe electrolyte derangement Likely cirrhosis Prolonged QT due to severe electrolyte derangement IVF Aggressive repletion of electrolytes Pain control GI evaluation IR for paracentesis Monitor for withdrawal US Follow QT on EKG (has been improving) Cardiac telemetry monitoring Dr Whitaker Critical care time spent in reviewing chart, evaluating patient and formulating plan - 36 minutes.
--- NOTE | 2019-07-22 14:33 | CONSULT ---
Consult - text type - Consultation Consultation Note: Renal consult for persistant hypokalemia This is a 59 year old woman with history of hypertension, asthma, alcohol abuse who presented from home with confusion, lethargry, abdomnal pain and found to have possible hepatic encephalopathy and hypokalemia. Seen and examined at the bedside. Awake and alert but still confused. No overnight events. ON lactuse and IVF/ S/p multiple runs of KCL overnight and this am. PMhx: as above Allergies: NKDA Family Hx: NC Social Hx: Former smoker and ETOH use Home Medications Medication Instructions Recorded Citalopram Hydrobromide [Celexa -] 40 mg PO DAILY 03/02/14 Haloperidol 2 mg PO DAILY 03/02/14 Quetiapine Fumarate [Seroquel -] 200 mg PO HS 03/02/14 hydrOXYzine PAMOATE [Vistaril -] 50 mg PO TID 03/02/14 Vital Signs Temperature 98.3 F 07/22/19 12:51 Pulse Rate 90 07/22/19 12:51 Respiratory Rate 16 07/22/19 12:51 Blood Pressure 140/83 07/22/19 12:51 O2 Sat by Pulse Oximetry (%) 98 07/22/19 09:00 Intake & Output 07/19/19 07/20/19 07/21/19 07/22/19 23:59 23:59 23:59 23:59 Intake Total 300 Balance 300 Weight 83 kg 85.638 kg NAD, confused awake and alert neck supple RRR, no M/R CTA, no rales or wheeze soft NT/ND, no organomegaly. No rebound or guarding no LE edema, clubbing or cyanosis CBC, BMP 07/21/19 22:55 07/22/19 06:00 Current Medications Albuterol Sulfate (Ventolin 0.083% Nebulizer Soln -) 1 amp NEB RQID PRN PRN Reason: SHORT OF BREATH/WHEEZING Folic Acid (Folic Acid -) 1 mg PO DAILY DAYNE Last Admin: 07/22/19 09:18 Dose: 1 mg Ceftriaxone Sodium 2 gm/ (Dextrose) 50 mls @ 100 mls/hr IVPB DAILY DAYNE; Protocol Last Admin: 07/22/19 09:18 Dose: 100 mls/hr Potassium Chloride 40 meq/ (Sodium Chloride) 1,020 mls @ 100 mls/hr IVPB Q10H [facility] Last Admin: 07/22/19 13:57 Dose: 100 mls/hr Potassium Phosphate 30 mm/ (Sodium Chloride) 260 mls @ 43.333 mls/hr IVPB ASDIR [facility] Last Admin: 07/22/19 13:00 Dose: 43.333 mls/hr Lactulose (Cephulac (Oral Use)) 20 gm PO Q4H [facility] Last Admin: 07/22/19 11:21 Dose: Not Given Lorazepam (Ativan Injection -) 0.5 mg IVPUSH Q6H PRN PRN Reason: ANXIETY Last Admin: 07/22/19 04:04 Dose: 0.5 mg Spironolactone (Aldactone -) 25 mg PO DAILY [facility] Last Admin: 07/22/19 13:05 Dose: 25 mg Thiamine HCl (Vitamin B1 -) 100 mg PO DAILY [facility] Last Admin: 07/22/19 09:19 Dose: 100 mg 59 year old woman with history of hypertension, asthma, alcohol abuse who presented from home with confusion, lethargry, abdomnal pain and found to have possible hepatic encephalopathy and hypokalemia. 1. Persistant hypokalemia in setting of poor oral intake + on going GI losses in setting of lactulose 2. Hypomagnesemia 3. Hepatic encephalopathy 4. ETOH abuse 5. Hypertenson Continue aggressive IV supplementation of KCL. Would give ~80-100 meq of KCL if K remains < 3 and recheck every 8 hours ensure Mg > 2 Supplement Phos IV as well. Change maintenance IVF to 1/2 NS Start aldactone 25mg daily Than you Darrion Tinoco DO
--- NOTE | 2019-07-22 14:51 | CON.GI ---
Consult Consult Specialty:: GI Referred by:: Hospitalist Service Reason for Consultation:: Liver Disease - History of Present Illness Chief Complaint: Confusion, abdominal pain History of Present Illness: 59F admitted from home through [facility] ER for evaluation of confusion, abdominal pain. Currently no abdominal pain. Drinks 3-4 bottles of vodka daily and has been doing this for quite some time. Her is present at bedside as is her son. They believe that she has had alcohol withdrawal in the past. Her PMD is Dr. Milton Manriquez. She does not see a automatic spooler operator or bracelet form coverer. She has never had an upper endoscopy or colonoscopy. Her states that she fell this past Thursday and hit her head in the bathroom. Abdominal US revealed cirrhotic appearing liver, abdominal ascites (reviewed by IR,, not enough for paracentesis), sludge and GB wall thickening. She has not been eating for the last 5 days but has been drinking alcohol daily up until 2 days ago Per her family her abdomen is usually protuberant, a bit more of late. - History Source History Provided By: Patient, Family Member, Medical Record Limitations to Obtaining History: Poor Historian - Past Medical History Hepatobiliary: Yes: Cirrhosis Psych: Yes: Addictions (Alcohol), Depression - Past Surgical History Past Surgical History: Yes: (x3) - Alcohol/Substance Use Hx Alcohol Use: Yes (daily) - Smoking History Smoking history: Former smoker Have you smoked in the past 12 months: No Aproximately how many cigarettes per day: 3 - Social History Usual Living Arrangement: With Spouse ADL: Independent Place of : Other ([facility]) History of Recent Travel: No Home Medications - Allergies Allergies/Adverse Reactions: Allergies Allergy/AdvReac Type Severity Reaction Status Date / Time No Known Allergies Allergy Verified 07/21/19 17:01 - Home Medications Home Medications: Ambulatory Orders Citalopram Hydrobromide [Celexa -] 40 mg PO DAILY 03/02/14 Haloperidol 2 mg PO DAILY 03/02/14 Quetiapine Fumarate [Seroquel -] 200 mg PO HS 03/02/14 hydrOXYzine PAMOATE [Vistaril -] 50 mg PO TID 03/02/14 Family Medical History Other Family History: No family history of liver disease, colorectal cancer Review of Systems - Review of Systems Constitutional: denies: Chills Cardiovascular: denies: Chest Pain Respiratory: denies: SOB Gastrointestinal: reports: Abdominal Pain. denies: Diarrhea, Melena, Nausea, Rectal Bleeding, Vomiting Physical Exam-GI Vital Signs: Vital Signs Temperature 98.3 F 07/22/19 12:51 Pulse Rate 90 07/22/19 12:51 Respiratory Rate 16 07/22/19 12:51 Blood Pressure 140/83 07/22/19 12:51 O2 Sat by Pulse Oximetry (%) 98 07/22/19 09:00 Constitutional: Yes: Calm Eyes: Yes: PERRL. No: Sclera Icterus Cardiovascular: Yes: Tachycardia. No: Murmur Respiratory: Yes: Diminished (at bases bilaterally, however, poor insp effort) Gastrointestinal Inspection: Yes: Scars (pelvic scar) ...Auscultate: Yes: Normoactive Bowel Sounds ...Palpate: Yes: Soft. No: Hepatomegaly, Splenomegaly, Tenderness ...Percussion: No: Dullness, Fluid Wave, Tympanitic Edema: LLE: Trace, RLE: Trace Neurological: Yes: Alert, Oriented (x person, partially to place, not to time), [facility] Labs: CBC, BMP 07/21/19 22:55 07/22/19 06:00 INR, PTT INR 1.80 (0.83-1.09) H 07/21/19 17:34 Hepatic Panel Total Bilirubin 3.0 mg/dL (0.2-1) H 07/21/19 22:55 AST 162 U/L (15-37) H 07/21/19 22:55 ALT 44 U/L (13-61) 07/21/19 22:55 Alkaline Phosphatase 131 U/L (45-117) H 07/21/19 22:55 Albumin 1.6 g/dl (3.4-5.0) L 07/21/19 22:55 Problem List - Problems (1) Cirrhosis Assessment/Plan: Alcoholic cirrhosis: Likely with mild alcoholic hepatitis, hepatic encephalopathy malnutrition in setting of alcohol abuse Advise: Continuing lactulose as ordered. Titrate for 3-4 loose BM's per day. If not improving, add rifaximin 550mg PO BID Monitor for alcohol withdrawal. She may have had a history of this in the past Consider imaging of head given recent fall history Folate, thiamine Needs q 6 Month hepatic US to screen for HCC Will need EGD to screen for varices and to be referred to a liver center when acute issues are resolved Correction of lytes per PMD Hepatitis A/B serologies are pending Check HCV antibody (HCV, diagnostic) Fall precautions Aspiration precautions Code(s): K74.60 - UNSPECIFIED CIRRHOSIS OF LIVER
--- NOTE | 2019-07-22 15:10 | PN ---
Physical Exam: SUBJECTIVE: Patient seen and examined O/N: admitted for abd pain + distension, hypokalemia Denies ARENAS, agitation, anxiety OBJECTIVE: Vital Signs Period Temp Pulse Resp BP Sys/Wood Pulse Ox Last 24 Hr 98 F-98.7 F 90-104 15-22 119-156/57-87 98-100 GENERAL: awake, oriented to name. No acute distress. HEAD: NC/AT EYES: extraocular movements intact, sclera anicteric, conjunctiva clear. No ptosis. ENT: Ears normal, nares patent, oropharynx clear without exudates, moist mucous membranes. NECK: Trachea midline, full range of motion, supple. LUNGS: Breath sounds equal, clear to auscultation bilaterally, no wheezes, no crackles, no accessory muscle use. Breathing comfortably RA HEART: Regular rate and rhythm, S1, S2 without murmur, rub or gallop. ABDOMEN: distended with ascitic fluid. Soft, nontender, hypoactive bowel sounds , no guarding, no rebound. EXTREMITIES: 2+ pulses, warm, well-perfused, no edema. NEUROLOGICAL: BUE tremors with arms extended PSYCH: Normal mood, normal affect. SKIN: Warm, dry, normal turgor, no rashes or lesions noted. Hyperpigmented skin tone Laboratory Results - last 24 hr 07/21/19 07/21/19 07/21/19 17:34 17:34 17:34 WBC 11.0 H RBC 3.14 L Hgb 11.6 Hct 33.9 D MCV 107.9 H MCH 36.9 H MCHC 34.1 RDW 15.3 D Plt Count 222 MPV 9.2 Absolute Neuts (auto) 5.9 Neutrophils % 53.2 Lymphocytes % 32.5 D Monocytes % 12.8 H Eosinophils % 1.1 Basophils % 0.4 Nucleated RBC % 2 H Anisocytosis 2+ Macrocytosis 2+ PT with INR INR PTT (Actin FS) Sodium 135 L Potassium 1.8 L* Chloride 90 L Carbon Dioxide 32 Anion Gap 12 BUN 3.3 L Creatinine 0.8 Est GFR (CKD-EPI)AfAm 93.53 Est GFR (CKD-EPI)NonAf 80.70 Random Glucose 120 H Lactic Acid Calcium 7.2 L Phosphorus Magnesium 1.7 L Total Bilirubin 3.6 H AST 168 H ALT 48 Alkaline Phosphatase 137 H Ammonia 117.40 H Creatine Kinase 1303 H Creatine Kinase Index 0.3 CK-MB (CK-2) 4.2 H Troponin I 0.02 Total Protein 9.1 H Albumin 1.6 L Lipase 182 07/21/19 07/21/19 07/21/19 17:34 17:34 22:55 WBC RBC Hgb Hct MCV MCH MCHC RDW Plt Count MPV Absolute Neuts (auto) Neutrophils % Lymphocytes % Monocytes % Eosinophils % Basophils % Nucleated RBC % Anisocytosis Macrocytosis PT with INR 21.40 H INR 1.80 H PTT (Actin FS) 32.1 Sodium 138 Potassium 2.1 L* Chloride 94 L Carbon Dioxide 35 H Anion Gap 9 BUN 2.8 L* Creatinine 0.8 Est GFR (CKD-EPI)AfAm 93.53 Est GFR (CKD-EPI)NonAf 80.70 Random Glucose 122 H Lactic Acid 5.8 H* Calcium 7.2 L Phosphorus 2.1 L Magnesium 2.2 Total Bilirubin 3.0 H AST 162 H ALT 44 Alkaline Phosphatase 131 H Ammonia Creatine Kinase Creatine Kinase Index CK-MB (CK-2) Troponin I Total Protein 8.7 H Albumin 1.6 L Lipase 07/21/19 07/22/19 07/22/19 22:55 06:00 10:50 WBC 9.9 RBC 2.96 L Hgb 11.0 Hct 31.7 L MCV 107.4 H MCH 37.3 H MCHC 34.8 RDW 15.3 Plt Count 200 MPV 8.8 Absolute Neuts (auto) Neutrophils % Lymphocytes % Monocytes % Eosinophils % Basophils % Nucleated RBC % Anisocytosis Macrocytosis PT with INR INR PTT (Actin FS) Sodium 138 Potassium 2.1 L* Chloride 96 L Carbon Dioxide 35 H Anion Gap 7 L BUN 2.6 L* Creatinine 0.7 Est GFR (CKD-EPI)AfAm 109.91 Est GFR (CKD-EPI)NonAf 94.84 Random Glucose 107 H Lactic Acid 2.5 H* Calcium 7.0 L Phosphorus Magnesium 2.1 Total Bilirubin AST ALT Alkaline Phosphatase Ammonia Creatine Kinase Creatine Kinase Index CK-MB (CK-2) Troponin I Total Protein Albumin Lipase Active Medications Generic Name Dose Route Start Last Admin Trade Name Freq PRN Reason Stop Dose Admin Albuterol Sulfate 1 amp 07/22/19 00:27 Ventolin 0.083% Nebulizer Soln - NEB RQID PRN SHORT OF BREATH/WHEEZING Folic Acid 1 mg 07/22/19 10:00 07/22/19 09:18 Folic Acid - PO 1 mg DAILY DAYNE Administration Ceftriaxone Sodium 2 gm/ 50 mls @ 100 mls/hr 07/22/19 10:00 07/22/19 09:18 Dextrose IVPB 100 mls/hr DAILY DAYNE Administration Protocol Potassium Chloride 40 meq/ 1,020 mls @ 100 mls/hr 07/22/19 12:45 07/22/19 13: 57 Sodium Chloride IVPB 100 mls/hr Q10H DAYNE Administration Potassium Phosphate 30 mm/ 260 mls @ 43.333 mls/hr 07/22/19 13:00 07/22/19 13 :00 Sodium Chloride IVPB 43.333 mls/hr ASDIR DAYNE Administration Lactulose 20 gm 07/21/19 23:30 07/22/19 11:21 Cephulac (Oral Use) PO Not Given Q4H DAYNE Lorazepam 0.5 mg 07/21/19 23:33 07/22/19 04:04 Ativan Injection - IVPUSH 0.5 mg Q6H PRN Administration ANXIETY Spironolactone 25 mg 07/22/19 12:45 07/22/19 13:05 Aldactone - PO 25 mg DAILY DAYNE Administration Thiamine HCl 100 mg 07/22/19 10:00 07/22/19 09:19 Vitamin B1 - PO 100 mg DAILY DAYNE Administration ASSESSMENT/PLAN: 59F with hx of HTN, anxiety, depression, and alcohol abuse presenting to the ED with abdominal pain, emesis, and AMS in the setting of increasing abdominal distension over the past 2 months. In the ED, was noted to have K1.8, Mg 1.7, with EKG pr interval 252, qtc 566. Concern for lyte abnormality and risk for arrhythmia requiring icu admission. Neuro: # AMS --possibly 2/2 electrolyte derrangements vs hepatic encephalopathy # chronic EtOH use disorder > ammonia 117.4 > CIWA 4 - monitor CIWA; Ativan 0.5mg q4h PRN - lactulose(titratable) for elevated ammonia - folate, thiamine - HOB 30 - aspiration precautions RESPIR: - breathing comfortably on RA > CXR: Right-sided fluid and atelectasis/infiltrate CARDIO: # prolonged QTc -- 2/2 electrolyte abn --resolving > EKG(07/22/19): NSR, TWI in inferior leads, QTc 566 > EKG(07/22/19): NSR, QTc 566 GI # transaminitis -- likely 2/2 chronic EtOH disorder and acute cirrhosis decompensation # ascites -- likely acute cirrhosis decompensation; unlikely SBP # ?SBP -- somewhat possible considering AMS and ascites > US RUQ: moderate ascites, biliary sludge > AP 137, AST 168, ALT 48 - abx regimen(empiric coverage for SBP): ceftriaxone - IR consult(Milka) for paracentesis: --too small to drain - GI consult(Danielle Martinez): --lactulose(titrate to 3-4BMs daily) --fu liver panel --consider CTH --US RUQ q6mo for HCC screening --EGD screening for varices Renal: > K 1.8, Mg 1.7 - Nephro(Earnest) consult: -- start aldactone -- Mg >2 -- recheck BMP q8h FEN: - 1/2 NS + K @100 - NPO PPX: - SQH Dispo: ICU, will transfer to tele once electrolytes improve Visit type - Emergency Visit Emergency Visit: No - New Patient This patient is new to me today: Yes Date on this admission: 07/23/19 - Critical Care Critical Care patient: Yes Total Critical Care Time (in minutes): 35 Critical Care Statement: The care of this patient involved high complexity decision making to prevent further life threatening deterioration of the patient 's condition and/or to evaluate & treat vital organ system(s) failure or risk of failure. ATTENDING PHYSICIAN STATEMENT I saw and evaluated the patient. I reviewed the resident's note and discussed the case with the resident. I agree with the resident's findings and plan as documented. SUBJECTIVE: OBJECTIVE: ASSESSMENT AND PLAN:
--- NOTE | 2019-07-22 15:18 | EKG ---
Test Reason : Blood Pressure : / mmHG Vent. Rate : 098 BPM Atrial Rate : 098 BPM P-R Int : 252 ms QRS Dur : 086 ms QT Int : 444 ms P-R-T Axes : 111 022 198 degrees QTc Int : 566 ms NORMAL SINUS RHYTHM PROLONGED QT ABNORMAL ECG Confirmed by ERNESTO MUNIZ MD ([id number]) on 07/22/2019 3:18:06 PM Referred By: Confirmed By:ERNESTO MUNIZ MD
[2019-07-22 16:51] LABS: CALCIUM 7.2 mg/dL (8.5-10.1); CREATININE 0.7 mg/dL (0.55-1.3); MAGNESIUM 2.2 mg/dL (1.8-2.4); PHOSPHOROUS 3.2 mg/dL (2.5-4.9)
[2019-07-22 16:59] LABS: BLOOD UREA NITROGEN 2.2 mg/dL (7-18); POTASSIUM 2.8 mmol/L (3.5-5.1)
--- NOTE | 2019-07-22 17:14 | CON.CARD ---
Consult Consult Specialty:: Cardiology Reason for Consultation:: Prolonged QTc - History of Present Illness History of Present Illness: This is a 50 year old female with a PMH of HTN, asthma, psychiatric issues, and daily alcohol use. She presents with symptoms of confusion, lethargy, abdominal pain and anorexia for 4 days. No chest pain. palpitations, or SOB. LFT abnormalities noted Abnormal EKG with prolonged QTC interval of [address] depressions V3-V6 Severe Hypokalmeia/Hypomagnesia EKG 07/22/2019 8:00 Am NSR at 96 BPM with a QTc 462, normal intervals, normal axis, and NSSTTW changes. K+ was 1.8 Mg++ was 1.7 - Past Medical History Hepatobiliary: Yes: Cirrhosis Psych: Yes: Addictions (Alcohol), Depression - Past Surgical History Past Surgical History: Yes: (x3) - Alcohol/Substance Use Hx Alcohol Use: Yes (daily) - Smoking History Smoking history: Former smoker Have you smoked in the past 12 months: No Aproximately how many cigarettes per day: 3 - Social History Usual Living Arrangement: With Spouse ADL: Independent History of Recent Travel: No Home Medications - Allergies Allergies/Adverse Reactions: Allergies Allergy/AdvReac Type Severity Reaction Status Date / Time No Known Allergies Allergy Verified 07/21/19 17:01 - Home Medications Home Medications: Ambulatory Orders Citalopram Hydrobromide [Celexa -] 40 mg PO DAILY 03/02/14 Haloperidol 2 mg PO DAILY 03/02/14 Quetiapine Fumarate [Seroquel -] 200 mg PO HS 03/02/14 hydrOXYzine PAMOATE [Vistaril -] 50 mg PO TID 03/02/14 Vital Signs: Vital Signs Temperature 98.6 F 07/22/19 16:00 Pulse Rate 95 H 07/22/19 16:00 Respiratory Rate 20 07/22/19 16:00 Blood Pressure 148/78 07/22/19 16:00 O2 Sat by Pulse Oximetry (%) 98 07/22/19 09:00 Constitutional: Yes: No Distress HENT: Yes: WNL Neck: Yes: WNL Respiratory: Yes: CTA Bilaterally Gastrointestinal: Yes: Soft Cardiovascular: Yes: Regular Rate and Rhythm Heart Sounds: Yes: S1, S2 Edema: No Neurological: Yes: Alert, Oriented - Other Data Labs, Other Data: CBC, BMP 07/21/19 22:55 07/22/19 16:00 INR, PTT INR 1.80 (0.83-1.09) H 07/21/19 17:34 Troponin, BNP 07/21/19 17:34 Troponin I 0.02 Troponin, BNP 07/21/19 17:34 Troponin I 0.02 Assessment/Plan 50 year old female with a PMH of HTN, asthma, psychiatric issues, and daily alcohol use. She presents with symptoms of confusion, lethargy, abdominal pain and anorexia for 4 days. No chest pain. palpitations, or SOB. LFT abnormalities noted Abnormal EKG with prolonged QTC interval of [address] depressions V3-V6 Severe Hypokalmeia/Hypomagnesia EKG 07/22/2019 8:00 Am NSR at 96 BPM with a QTc 462, normal intervals, normal axis, and NSSTTW changes. K+ was 1.8 Mg++ was 1.7 EKG changes secondary to electrolyte abnormalities Replete potassium and magnesium Repeat EKG once lytes are repleted Keep monitored for now
[2019-07-22] MEDS ORDERED: CHLORHEXIDINE GLUCONATE 4% CLEANSER FOR DECOLONIZATION TP SCH (22:00)
[2019-07-22 23:48] LABS: CALCIUM 7.2 mg/dL (8.5-10.1); CREATININE 0.7 mg/dL (0.55-1.3)
[2019-07-22 23:50] LABS: BLOOD UREA NITROGEN 2.5 mg/dL (7-18)
[2019-07-23 01:08] LABS: ALBUMIN 1.8 g/dl (3.4-5.0); PHOSPHOROUS 2.7 mg/dL (2.5-4.9)
[2019-07-23] MEDS: KCL 10 MEQ IVPB 10 MEQ/100 ML INFUS.BAG IVPB SCH ×6 (01:23→14:14)
[2019-07-23 02:26] LABS: MAGNESIUM 1.9 mg/dL (1.8-2.4)
[2019-07-23] MEDS: LACTULOSE 20 GM/30 ML UDC (FOR ORAL USE ONLY) PO SCH ×2 (03:30→06:32)
[2019-07-23] MEDS ORDERED: MAGNESIUM SULF 50% (8.12 MEQ/2 ML-1 GM VIAL) IVPB ONE (04:44)
[2019-07-23 07:08] LABS: HEMATOCRIT 29.7 % (32.4-45.2); HEMOGLOBIN 10.3 GM/dL (10.7-15.3); MCH 37.6 pg (25.7-33.7); MCHC 34.8 g/dl (32.0-36.0); MEAN CELL VOLUME 108.2 fl (80-96); MEAN PLT VOLUME 8.4 fl (7.5-11.1); PLATELET COUNT 173 K/MM3 (134-434); RBC 2.74 M/mm3 (3.60-5.2); RDW 15.6 % (11.6-15.6); WHITE BLOOD COUNT 8.9 K/mm3 (4.0-10.0)
[2019-07-23 07:50] LABS: ALBUMIN 1.6 g/dl (3.4-5.0); CALCIUM 7.1 mg/dL (8.5-10.1); CREATININE 0.7 mg/dL (0.55-1.3); MAGNESIUM 2.1 mg/dL (1.8-2.4); PHOSPHOROUS 2.8 mg/dL (2.5-4.9); POTASSIUM 3.1 mmol/L (3.5-5.1); TOT PROT 8.5 g/dl (6.4-8.2)
[2019-07-23 08:08] LABS: BLOOD UREA NITROGEN 2.1 mg/dL (7-18)
[2019-07-23] MEDS ORDERED: ALBUTEROL SO4 0.083% IH SOL 2.5 MG/3 ML VIAL.NEB. NEB PRN (09:40)
[2019-07-23] MEDS ORDERED: LORazepam 2 MG/ML SDV VIAL IVPUSH PRN (09:40)
[2019-07-23] MEDS ORDERED: DEXTROSE 5%-WATER - 50 ML IVPB ONE (09:48)
[2019-07-23] MEDS: THIAMINE HCL 100 MG TABLET (FP) PO SCH ×2 (10:19→15:35)
[2019-07-23] MEDS: CEFTRIAXONE 2 GM in DEXTROSE 5%-WATER - 50 ML IVPB SCH (10:20)
[2019-07-23] MEDS: SPIRONOLACTONE 25 MG TABLET (FP) PO SCH ×2 (10:22→15:35)
[2019-07-23] MEDS: FOLIC ACID 1 MG TABLET (FP) PO SCH ×2 (10:22→15:38)
--- NOTE | 2019-07-23 10:52 | PN ---
Progress Note, Physician - Current Medication List Current Medications: Active Medications Albuterol Sulfate (Ventolin 0.083% Nebulizer Soln -) 1 amp NEB RQID PRN PRN Reason: SHORT OF BREATH/WHEEZING Folic Acid (Folic Acid -) 1 mg PO DAILY [facility] Last Admin: 07/23/19 10:22 Dose: Not Given Ceftriaxone Sodium 2 gm/ (Dextrose) 50 mls @ 100 mls/hr IVPB DAILY [facility]; Protocol Last Admin: 07/23/19 10:20 Dose: 100 mls/hr Potassium Chloride 40 meq/ (Sodium Chloride) 1,020 mls @ 100 mls/hr IVPB Q10H DAYNE Lactulose (Cephulac (Oral Use)) 20 gm PO Q4H DAYNE Lorazepam (Ativan Injection -) 0.5 mg IVPUSH Q6H PRN PRN Reason: ANXIETY Spironolactone (Aldactone -) 25 mg PO DAILY [facility] Last Admin: 07/23/19 10:22 Dose: Not Given Thiamine HCl (Vitamin B1 -) 100 mg PO DAILY [facility] Last Admin: 07/23/19 10:19 Dose: Not Given - Objective Vital Signs: Vital Signs Temperature 97.5 F L 07/23/19 10:00 Pulse Rate 97 H 07/23/19 10:00 Respiratory Rate 15 07/23/19 10:00 Blood Pressure 155/95 07/23/19 10:00 O2 Sat by Pulse Oximetry (%) 99 07/23/19 09:00 Cardiovascular: Yes: Regular Rate and Rhythm Respiratory: Yes: Regular, CTA Bilaterally Gastrointestinal: Yes: Normal Bowel Sounds, Soft. No: Tenderness Edema: No Labs: CBC, BMP 07/23/19 06:20 07/23/19 06:20 INR, PTT INR 1.80 (0.83-1.09) H 07/21/19 17:34 Problem List - Problems (1) Hepatic encephalopathy Assessment/Plan: LACTULOSE GI ON CASE CT HEAD FOLLOW LABS Code(s): K72.90 - HEPATIC FAILURE, UNSPECIFIED WITHOUT COMA (2) Alcohol abuse Assessment/Plan: MONITOR FOR WITHDRAWALS Code(s): F10.10 - ALCOHOL ABUSE, UNCOMPLICATED (3) Hypokalemia Assessment/Plan: REPLACE AND MONITOR Code(s): E87.6 - HYPOKALEMIA (4) Prolonged QT interval Assessment/Plan: REPLACE ELECTROLYTES AND MONITOR CARDIO NOTED Code(s): R94.31 - ABNORMAL ELECTROCARDIOGRAM [ECG] [EKG] (5) Ascites Assessment/Plan: GI IR FOR PARACENTSIS Code(s): R18.8 - OTHER ASCITES (6) Cirrhosis Assessment/Plan: GI NOTED WILL NEED FOLLOW UP AND W/U AT LIVER CENTER Code(s): K74.60 - UNSPECIFIED CIRRHOSIS OF LIVER
--- NOTE | 2019-07-23 13:01 | PN.GI ---
GI Progress Note Subjective: NO NEW COMPLAINTS - NURSE AT THE BEDSIDE - PT STILL WITH CONFUSION - FOLLOWS SOME COMMANDS. NO REPORT OF N/V/ GI BLEED - Objective Vital Signs: Vital Signs Temperature 97.5 F L 07/23/19 10:00 Pulse Rate 97 H 07/23/19 10:00 Respiratory Rate 15 07/23/19 10:00 Blood Pressure 155/95 07/23/19 10:00 O2 Sat by Pulse Oximetry (%) 99 07/23/19 09:00 Constitutional: Well Nourished, No Distress Eyes: Yes: WNL HENT: Yes: WNL Cardiovascular: Yes: WNL, Regular Rate and Rhythm Respiratory: Yes: WNL, Regular, CTA Bilaterally Gastrointestinal Inspection: Yes: WNL ...Auscultate: Yes: Normoactive Bowel Sounds Musculoskeletal: Yes: WNL Extremities: Yes: WNL Edema: No Neurological: Yes: Other (DOES NOT FOLLOW ALL COMMANDS TO PERFORM A COMPLETE NEURO EXAM) Labs: CBC, BMP 07/23/19 06:20 07/23/19 06:20 INR, PTT INR 1.80 (0.83-1.09) H 07/21/19 17:34 Problem List - Problems (1) Alcohol abuse Assessment/Plan: - C/W LACTULOSE WILL ADD RIFAXIMIN 550 MG PO BID - MONITOR NEURO EXAM - C/W ABX - F/U ASCITES FLUID RESULTS - CORRECT ELECTROLYTES - AVOID SEDATIVES / NSAID - EGD / HCC SURVEILLANCE CAN BE DONE OUTPT ONCE THE ACUTE PROCESS (PSE) HAS RESOLVED - 2 GM SODIUM DIET - Code(s): F10.10 - ALCOHOL ABUSE, UNCOMPLICATED (2) Ascites Code(s): R18.8 - OTHER ASCITES (3) Cirrhosis Code(s): K74.60 - UNSPECIFIED CIRRHOSIS OF LIVER (4) Hepatic encephalopathy Code(s): K72.90 - HEPATIC FAILURE, UNSPECIFIED WITHOUT COMA
--- NOTE | 2019-07-23 14:24 | PN ---
Progress Note (short form) - Note Progress Note: RENAL Pt is awake and alert responds to questions in azeri Last Vital Signs Temp Pulse Resp BP Pulse Ox 97.8 F 97 H 15 155/81 99 07/23/19 13:57 07/23/19 13:57 07/23/19 10:00 07/23/19 13:57 07/23/19 09:00 lungs clear cvs s1s2 rr abd soft distended ext +edema neuro a+o CBC, BMP 07/23/19 06:20 07/23/19 06:20 Current Medications Generic Name Dose Route Start Last Admin Trade Name Freq PRN Reason Stop Dose Admin Albuterol Sulfate 1 amp 07/23/19 09:40 Ventolin 0.083% Nebulizer Soln - NEB RQID PRN SHORT OF BREATH/WHEEZING Folic Acid 1 mg 07/23/19 10:00 07/23/19 10:22 Folic Acid - PO Not Given DAILY [facility] Ceftriaxone Sodium 2 gm/ 50 mls @ 100 mls/hr 07/23/19 10:00 07/23/19 10:20 Dextrose IVPB 100 mls/hr DAILY [facility] Administration Protocol Potassium Chloride 40 meq/ 1,020 mls @ 100 mls/hr 07/23/19 18:45 Sodium Chloride IVPB Q10H DAYNE Lactulose 20 gm 07/23/19 11:30 Cephulac (Oral Use) PO Q4H DAYNE Lorazepam 0.5 mg 07/23/19 09:40 Ativan Injection - IVPUSH Q6H PRN ANXIETY Rifaximin 550 mg 07/23/19 22:00 Xifaxan - PO BID DAYNE Spironolactone 25 mg 07/23/19 10:00 07/23/19 10:22 Aldactone - PO Not Given DAILY [facility] Thiamine HCl 100 mg 07/23/19 10:00 07/23/19 10:19 Vitamin B1 - PO Not Given DAILY [facility] 59 year old woman with history of hypertension, asthma, alcohol abuse who presented from home with confusion, lethargry, abdomnal pain and found to have possible hepatic encephalopathy and hypokalemia. 1. Persistant hypokalemia in setting of poor oral intake + on going GI losses in setting of lactulose 2. Hypomagnesemia 3. Hepatic encephalopathy worsened by hypokalemia 4. ETOH abuse 5. Hypertenson replace k and mag- can give oral k as well would reduce lactulose since diarrhea wont help continue spironolactone continue rifaximin MV
[2019-07-23] MEDS ORDERED: POTASSIUM CHLORIDE ORAL LIQUID 20 MEQ/15 ML PO ONE (14:25)
[2019-07-23] MEDS ORDERED: PT OWN MED DRAWER 7, Y5N ONE ×2 (17:34→21:56)
[2019-07-23 19:07] LABS: HEP B CORE AB, TOT Negative (Negative)
[2019-07-23] MEDS: POTASSIUM CHLORIDE 40 MEQ in SODIUM CHLORIDE 0.45% 1,000 ML IVPB SCH (23:06)
[2019-07-23] MEDS: RIFAXIMIN 550 MG TABLET (UD) PO SCH (23:07)
[2019-07-24] MEDS: POTASSIUM CHLORIDE 40 MEQ in SODIUM CHLORIDE 0.45% 1,000 ML IVPB SCH ×2 (06:04→15:24)
[2019-07-24 07:25] LABS: BASO % 0.4 % (0-2.0); EOS % 2.2 % (0-4.5); HEMATOCRIT 30.8 % (32.4-45.2); HEMOGLOBIN 10.7 GM/dL (10.7-15.3); LYMPH % 24.8 % (8-40); MCH 37.5 pg (25.7-33.7); MCHC 34.6 g/dl (32.0-36.0); MEAN CELL VOLUME 108.4 fl (80-96); MEAN PLT VOLUME 8.4 fl (7.5-11.1); MONO % 12.6 % (3.8-10.2); PLATELET COUNT 173 K/MM3 (134-434); RBC 2.85 M/mm3 (3.60-5.2); RDW 15.5 % (11.6-15.6); WHITE BLOOD COUNT 9.8 K/mm3 (4.0-10.0)
[2019-07-24 07:52] LABS: ALBUMIN 1.8 g/dl (3.4-5.0); BILIRUBIN,TOTAL 3.2 mg/dL (0.2-1); CALCIUM 7.4 mg/dL (8.5-10.1); CREATININE 0.7 mg/dL (0.55-1.3); POTASSIUM 3.8 mmol/L (3.5-5.1)
--- NOTE | 2019-07-24 07:59 | PN.GI ---
GI Progress Note Subjective: no new complaints - more awake and alert today - Objective Vital Signs: Vital Signs Temperature 98.8 F 07/24/19 05:29 Pulse Rate 92 H 07/24/19 05:29 Respiratory Rate 20 07/24/19 05:29 Blood Pressure 162/86 07/24/19 05:29 O2 Sat by Pulse Oximetry (%) 98 07/23/19 21:00 Constitutional: Well Nourished, No Distress, Calm Eyes: Yes: WNL HENT: Yes: WNL Neck: Yes: WNL Cardiovascular: Yes: WNL Respiratory: Yes: WNL, Regular, CTA Bilaterally Gastrointestinal Inspection: Yes: WNL ...Auscultate: Yes: Normoactive Bowel Sounds Extremities: Yes: WNL Edema: No Labs: CBC, BMP 07/24/19 06:35 07/24/19 06:35 INR, PTT INR 1.80 (0.83-1.09) H 07/21/19 17:34 Problem List - Problems (1) Alcohol abuse Assessment/Plan: - LACTULOSE DECREASED SECONDARY TO HYPOKALEMIA ; C/W RIFAXIMIN 550 MG PO BID - MONITOR NEURO EXAM - C/W ABX - F/U ASCITES FLUID RESULTS - CORRECT ELECTROLYTES - AVOID SEDATIVES / NSAID - EGD / HCC SURVEILLANCE CAN BE DONE OUTPT ONCE THE ACUTE PROCESS (PSE) HAS RESOLVED - 2 GM SODIUM DIET - Code(s): F10.10 - ALCOHOL ABUSE, UNCOMPLICATED (2) Ascites Code(s): R18.8 - OTHER ASCITES (3) Cirrhosis Code(s): K74.60 - UNSPECIFIED CIRRHOSIS OF LIVER (4) Hepatic encephalopathy Code(s): K72.90 - HEPATIC FAILURE, UNSPECIFIED WITHOUT COMA
[2019-07-24] MEDS ORDERED: DEXTROSE 5%-WATER - 50 ML IVPB ONE (09:21)
[2019-07-24] MEDS: LACTULOSE 20 GM/30 ML UDC (FOR ORAL USE ONLY) PO SCH ×4 (09:49→22:32)
[2019-07-24] MEDS: THIAMINE HCL 100 MG TABLET (FP) PO SCH (09:50)
[2019-07-24] MEDS: SPIRONOLACTONE 25 MG TABLET (FP) PO SCH (09:50)
[2019-07-24] MEDS: FOLIC ACID 1 MG TABLET (FP) PO SCH (09:50)
[2019-07-24] MEDS: RIFAXIMIN 550 MG TABLET (UD) PO SCH ×2 (09:50→22:32)
[2019-07-24] MEDS: CEFTRIAXONE 2 GM in DEXTROSE 5%-WATER - 50 ML IVPB SCH (09:51)
--- NOTE | 2019-07-24 10:35 | PN ---
Progress Note, Physician - Current Medication List Current Medications: Active Medications Albuterol Sulfate (Ventolin 0.083% Nebulizer Soln -) 1 amp NEB RQID PRN PRN Reason: SHORT OF BREATH/WHEEZING Folic Acid (Folic Acid -) 1 mg PO DAILY [facility] Last Admin: 07/24/19 09:50 Dose: 1 mg Ceftriaxone Sodium 2 gm/ (Dextrose) 50 mls @ 100 mls/hr IVPB DAILY [facility]; Protocol Last Admin: 07/24/19 09:51 Dose: 100 mls/hr Potassium Chloride 40 meq/ (Sodium Chloride) 1,020 mls @ 100 mls/hr IVPB Q10H [facility] Last Admin: 07/24/19 06:04 Dose: Not Given Lactulose (Cephulac (Oral Use)) 20 gm PO QID [facility] Last Admin: 07/24/19 09:49 Dose: 20 gm Lorazepam (Ativan Injection -) 0.5 mg IVPUSH Q6H PRN PRN Reason: ANXIETY Rifaximin (Xifaxan -) 550 mg PO BID [facility] Last Admin: 07/24/19 09:50 Dose: 550 mg Spironolactone (Aldactone -) 25 mg PO DAILY [facility] Last Admin: 07/24/19 09:50 Dose: 25 mg Thiamine HCl (Vitamin B1 -) 100 mg PO DAILY [facility] Last Admin: 07/24/19 09:50 Dose: 100 mg - Objective Vital Signs: Vital Signs Temperature 98.0 F 07/24/19 08:41 Pulse Rate 89 07/24/19 08:41 Respiratory Rate 20 07/24/19 08:41 Blood Pressure 148/77 07/24/19 08:41 O2 Sat by Pulse Oximetry (%) 98 07/24/19 08:40 Cardiovascular: Yes: S1, S2 Respiratory: Yes: Regular, CTA Bilaterally Gastrointestinal: Yes: Normal Bowel Sounds, Soft Labs: CBC, BMP 07/24/19 06:35 07/24/19 06:35 INR, PTT INR 1.80 (0.83-1.09) H 07/21/19 17:34 Problem List - Problems (1) Hepatic encephalopathy Assessment/Plan: LACTULOSE GI ON CASE CT HEAD FOLLOW LABS Code(s): K72.90 - HEPATIC FAILURE, UNSPECIFIED WITHOUT COMA (2) Alcohol abuse Assessment/Plan: MONITOR FOR WITHDRAWALS Code(s): F10.10 - ALCOHOL ABUSE, UNCOMPLICATED (3) Hypokalemia Assessment/Plan: REPLACE AND MONITOR Code(s): E87.6 - HYPOKALEMIA (4) Prolonged QT interval Assessment/Plan: REPLACE ELECTROLYTES AND MONITOR CARDIO NOTED Code(s): R94.31 - ABNORMAL ELECTROCARDIOGRAM [ECG] [EKG] (5) Ascites Assessment/Plan: GI IR FOR PARACENTSIS Code(s): R18.8 - OTHER ASCITES (6) Cirrhosis Assessment/Plan: GI NOTED WILL NEED FOLLOW UP AND W/U AT LIVER CENTER Code(s): K74.60 - UNSPECIFIED CIRRHOSIS OF LIVER
[2019-07-24] MEDS ORDERED: PT OWN MED DRAWER 7, Y5N ONE (14:23)
[2019-07-25] MEDS: POTASSIUM CHLORIDE 40 MEQ in SODIUM CHLORIDE 0.45% 1,000 ML IVPB SCH ×3 (05:59→21:38)
[2019-07-25 06:27] LABS: BASO % 0.7 % (0-2.0); EOS % 1.9 % (0-4.5); HEMATOCRIT 33.8 % (32.4-45.2); HEMOGLOBIN 11.4 GM/dL (10.7-15.3); LYMPH % 24.3 % (8-40); MCH 37.7 pg (25.7-33.7); MCHC 33.8 g/dl (32.0-36.0); MEAN CELL VOLUME 111.6 fl (80-96); MEAN PLT VOLUME 8.5 fl (7.5-11.1); MONO % 12.7 % (3.8-10.2); NEUT % 60.4 % (42.8-82.8); PLATELET COUNT 160 K/MM3 (134-434); RBC 3.03 M/mm3 (3.60-5.2); RDW 15.5 % (11.6-15.6); WHITE BLOOD COUNT 8.9 K/mm3 (4.0-10.0)
--- NOTE | 2019-07-25 07:02 | PN.GI ---
GI Progress Note Subjective: NO NEW COMPLAINTS FEELING BETTER SOME SORENESS AT PARACENTESIS SITE - Objective Vital Signs: Vital Signs Temperature 97.9 F 07/25/19 05:00 Pulse Rate 93 H 07/25/19 05:00 Respiratory Rate 07/25/19 05:00 Blood Pressure 152/88 07/25/19 05:00 O2 Sat by Pulse Oximetry (%) 97 07/24/19 20:52 Constitutional: Well Nourished, No Distress, Calm Eyes: Yes: WNL HENT: Yes: WNL Cardiovascular: Yes: WNL, Regular Rate and Rhythm Respiratory: Yes: WNL, Regular, CTA Bilaterally Gastrointestinal Inspection: Yes: WNL ...Auscultate: Yes: Normoactive Bowel Sounds, Other (NOT TENDER) Extremities: Yes: WNL Labs: CBC, BMP 07/25/19 05:47 INR, PTT INR 1.80 (0.83-1.09) H 07/21/19 17:34 Problem List - Problems (1) Alcohol abuse Assessment/Plan: - 5 LITERS ASCITES FLUID REMOVED - F/U CHEMISTRY AND CULTURES ; ALBUMIN TO BE GIVEN - LACTULOSE DECREASED SECONDARY TO HYPOKALEMIA ; C/W RIFAXIMIN 550 MG PO BID - MONITOR NEURO EXAM - C/W ABX - CORRECT ELECTROLYTES - AVOID SEDATIVES / NSAID - EGD / HCC SURVEILLANCE CAN BE DONE OUTPT ONCE THE ACUTE PROCESS (PSE) HAS RESOLVED - 2 GM SODIUM DIET RESUMED - Code(s): F10.10 - ALCOHOL ABUSE, UNCOMPLICATED (2) Ascites Code(s): R18.8 - OTHER ASCITES (3) Cirrhosis Code(s): K74.60 - UNSPECIFIED CIRRHOSIS OF LIVER (4) Hepatic encephalopathy Code(s): K72.90 - HEPATIC FAILURE, UNSPECIFIED WITHOUT COMA
[2019-07-25 07:20] LABS: ALBUMIN 1.7 g/dl (3.4-5.0); BILIRUBIN,TOTAL 2.5 mg/dL (0.2-1); CALCIUM 7.4 mg/dL (8.5-10.1); CREATININE 0.7 mg/dL (0.55-1.3); MAGNESIUM 1.7 mg/dL (1.8-2.4); TOT PROT 8.8 g/dl (6.4-8.2)
--- NOTE | 2019-07-25 09:29 | PN ---
Progress Note, Physician History of Present Illness: more alert - Current Medication List Current Medications: Active Medications Albuterol Sulfate (Ventolin 0.083% Nebulizer Soln -) 1 amp NEB RQID PRN PRN Reason: SHORT OF BREATH/WHEEZING Folic Acid (Folic Acid -) 1 mg PO DAILY [facility] Last Admin: 07/24/19 09:50 Dose: 1 mg Ceftriaxone Sodium 2 gm/ (Dextrose) 50 mls @ 100 mls/hr IVPB DAILY [facility]; Protocol Last Admin: 07/24/19 09:51 Dose: 100 mls/hr Potassium Chloride 40 meq/ (Sodium Chloride) 1,020 mls @ 100 mls/hr IVPB Q10H [facility] Last Admin: 07/25/19 05:59 Dose: Not Given Lactulose (Cephulac (Oral Use)) 20 gm PO QID [facility] Last Admin: 07/24/19 22:32 Dose: 20 gm Rifaximin (Xifaxan -) 550 mg PO BID [facility] Last Admin: 07/24/19 22:32 Dose: 550 mg Spironolactone (Aldactone -) 25 mg PO DAILY [facility] Last Admin: 07/24/19 09:50 Dose: 25 mg Thiamine HCl (Vitamin B1 -) 100 mg PO DAILY [facility] Last Admin: 07/24/19 09:50 Dose: 100 mg - Objective Vital Signs: Vital Signs Temperature 97.9 F 07/25/19 05:00 Pulse Rate 93 H 07/25/19 05:00 Respiratory Rate 20 07/25/19 05:00 Blood Pressure 152/88 07/25/19 05:00 O2 Sat by Pulse Oximetry (%) 97 07/24/19 20:52 Cardiovascular: Yes: Regular Rate and Rhythm Respiratory: Yes: Regular, CTA Bilaterally Gastrointestinal: Yes: Normal Bowel Sounds, Soft, Ascites, Distention Labs: CBC, BMP 07/25/19 05:47 07/25/19 05:47 INR, PTT INR 1.80 (0.83-1.09) H 07/21/19 17:34 Problem List - Problems (1) Hepatic encephalopathy Assessment/Plan: LACTULOSE GI ON CASE CT HEAD NAD FOLLOW LABS Code(s): K72.90 - HEPATIC FAILURE, UNSPECIFIED WITHOUT COMA (2) Alcohol abuse Assessment/Plan: MONITOR FOR WITHDRAWALS Code(s): F10.10 - ALCOHOL ABUSE, UNCOMPLICATED (3) Hypokalemia Assessment/Plan: RESOLVED REPLACE AND MONITOR Code(s): E87.6 - HYPOKALEMIA (4) Prolonged QT interval Assessment/Plan: REPLACE ELECTROLYTES AND MONITOR CARDIO NOTED Code(s): R94.31 - ABNORMAL ELECTROCARDIOGRAM [ECG] [EKG] (5) Ascites Assessment/Plan: GI IR FOR PARACENTSIS Code(s): R18.8 - OTHER ASCITES (6) Cirrhosis Assessment/Plan: GI NOTED WILL NEED FOLLOW UP AND W/U AT LIVER CENTER Code(s): K74.60 - UNSPECIFIED CIRRHOSIS OF LIVER Assessment/Plan PT--DC PLANNING
[2019-07-25] MEDS ORDERED: DEXTROSE 5%-WATER - 50 ML IVPB ONE (09:55)
[2019-07-25] MEDS: FOLIC ACID 1 MG TABLET (FP) PO SCH (09:58)
[2019-07-25] MEDS: SPIRONOLACTONE 25 MG TABLET (FP) PO SCH (09:58)
[2019-07-25] MEDS: THIAMINE HCL 100 MG TABLET (FP) PO SCH (09:58)
[2019-07-25] MEDS: RIFAXIMIN 550 MG TABLET (UD) PO SCH ×2 (09:58→22:40)
[2019-07-25] MEDS: LACTULOSE 20 GM/30 ML UDC (FOR ORAL USE ONLY) PO SCH ×4 (09:58→22:40)
[2019-07-25] MEDS: CEFTRIAXONE 2 GM in DEXTROSE 5%-WATER - 50 ML IVPB SCH (09:58)
--- NOTE | 2019-07-25 10:08 | EKG ---
Test Reason : Blood Pressure : / mmHG Vent. Rate : 090 BPM Atrial Rate : 090 BPM P-R Int : 132 ms QRS Dur : 078 ms QT Int : 420 ms P-R-T Axes : 052 035 037 degrees QTc Int : 513 ms NORMAL SINUS RHYTHM PROLONGED QT ABNORMAL ECG WHEN COMPARED WITH ECG OF 22-JUL-2019 08:34, NONSPECIFIC T WAVE ABNORMALITY, IMPROVED IN INFERIOR LEADS T WAVE INVERSION NO LONGER EVIDENT IN ANTEROLATERAL LEADS QT HAS LENGTHENED Confirmed by Rita Marcos ([id number]) on 07/25/2019 10:07:37 AM Referred By: Hitesh GARCIA Confirmed By:Rita Marcos
[2019-07-25 10:35] LABS: INR 1.86 (0.83-1.09); PROTHROMBIN TIME (PATIENT) 22.1 SEC (9.7-13.0)
[2019-07-25 10:42] LABS: ANISOCYTOSIS 1+; MACROCYTOSIS 1+; PLATELET ESTIMATE NORMAL
[2019-07-25 14:45] LABS: BF WBC & OTHER NUCLEATED CELLS 194 /mm3; BODY FLUID BASOPHIL 1 %; BODYL FLD EOSINOPHIL 1 %
[2019-07-25 14:46] LABS: BODY FLUID MACROPHAGES 45 %; BODY FLUID MESOTHELIAL 7 %
--- NOTE | 2019-07-25 15:35 | PN ---
Progress Note, Physician History of Present Illness: Pt seen and examined at bedside. She is awake and alert. She is s/p paracentesis. - Current Medication List Current Medications: Active Medications Albuterol Sulfate (Ventolin 0.083% Nebulizer Soln -) 1 amp NEB RQID PRN PRN Reason: SHORT OF BREATH/WHEEZING Folic Acid (Folic Acid -) 1 mg PO DAILY [facility] Last Admin: 07/25/19 09:58 Dose: 1 mg Ceftriaxone Sodium 2 gm/ (Dextrose) 50 mls @ 100 mls/hr IVPB DAILY [facility]; Protocol Last Admin: 07/25/19 09:58 Dose: 100 mls/hr Potassium Chloride 40 meq/ (Sodium Chloride) 1,020 mls @ 100 mls/hr IVPB Q10H [facility] Last Admin: 07/25/19 11:00 Dose: Not Given Lactulose (Cephulac (Oral Use)) 20 gm PO QID [facility] Last Admin: 07/25/19 13:42 Dose: 20 gm Rifaximin (Xifaxan -) 550 mg PO BID [facility] Last Admin: 07/25/19 09:58 Dose: 550 mg Spironolactone (Aldactone -) 25 mg PO DAILY [facility] Last Admin: 07/25/19 09:58 Dose: 25 mg Thiamine HCl (Vitamin B1 -) 100 mg PO DAILY [facility] Last Admin: 07/25/19 09:58 Dose: 100 mg - Objective Vital Signs: Vital Signs Temperature 98.9 F 07/25/19 14:04 Pulse Rate 91 H 07/25/19 14:04 Respiratory Rate 20 07/25/19 14:04 Blood Pressure 161/98 07/25/19 14:04 O2 Sat by Pulse Oximetry (%) 97 07/25/19 09:00 Constitutional: Yes: Calm Eyes: Yes: Conjunctiva Clear HENT: Yes: Atraumatic Neck: Yes: Supple Cardiovascular: Yes: S1, S2 Respiratory: Yes: CTA Bilaterally Gastrointestinal: Yes: Normal Bowel Sounds, Soft, Ascites Genitourinary: Yes: WNL Musculoskeletal: Yes: WNL Edema: No Neurological: Yes: Oriented Psychiatric: Yes: Oriented Labs: CBC, BMP 07/25/19 05:47 07/25/19 05:47 INR, PTT INR 1.86 (0.83-1.09) H 07/25/19 09:40 Assessment/Plan Current Medications Generic Name Dose Route Start Last Admin Trade Name Frearlet PRN Reason Stop Dose Admin Albuterol Sulfate 1 amp 07/23/19 09:40 Ventolin 0.083% Nebulizer Soln - NEB RQID PRN SHORT OF BREATH/WHEEZING Folic Acid 1 mg 07/23/19 10:00 07/25/19 09:58 Folic Acid - PO 1 mg DAILY [facility] Administration Ceftriaxone Sodium 2 gm/ 50 mls @ 100 mls/hr 07/23/19 10:00 07/25/19 09:58 Dextrose IVPB 100 mls/hr DAILY [facility] Administration Protocol Potassium Chloride 40 meq/ 1,020 mls @ 100 mls/hr 07/23/19 18:45 07/25/19 11: 00 Sodium Chloride IVPB Not Given Q10H [facility] Lactulose 20 gm 07/24/19 10:00 07/25/19 13:42 Cephulac (Oral Use) PO 20 gm QID [facility] Administration Rifaximin 550 mg 07/23/19 22:00 07/25/19 09:58 Xifaxan - PO 550 mg BID [facility] Administration Spironolactone 25 mg 07/23/19 10:00 07/25/19 09:58 Aldactone - PO 25 mg DAILY [facility] Administration Thiamine HCl 100 mg 07/23/19 10:00 07/25/19 09:58 Vitamin B1 - PO 100 mg DAILY [facility] Administration 1. Persistant hypokalemia in setting of poor oral intake + on going GI losses in setting of lactulose 2. Hypomagnesemia 3. Hepatic encephalopathy worsened by hypokalemia 4. ETOH abuse 5. Hypertenson Plan - replace lytes - replace mag - cont aldactone for now - pt s/p paracentesis
[2019-07-25] MEDS ORDERED: MAGNESIUM SULF 50% (8.12 MEQ/2 ML-1 GM VIAL) IVPB ONE (16:00)
[2019-07-25] MEDS ORDERED: PT OWN MED DRAWER 7, Y5N ONE (21:53)
--- NOTE | 2019-07-26 06:42 | HOSP ---
Subjective - Review of Symptoms Events since last encounter: hospitalist encounter Notified by the RN that the patient is c/p abd pain and her abdomen is more distended, was asked to assess. Arrived to bedside, patient is awake, alert and oriented. She speaks Wolof, she pointed to her abdomen and said "Dolor" pain in Wolof. I discussed with the RN who explained the overnight events till now. PE performed see EMR. Assessment: 59 year old female mainly Wolof speaking female with history of hypertension, asthma, psychiatric issues, and daily alcohol use who presents as per family with symptoms of confusion, lethargy, abdominal pain and anorexia for 4 days. Admitted for Hepatic Encephalopathy, Severe Hypokalemia, Prolonged QTC. s/p Paracentesis (07/25/19) Plan: [facility]UA Xray stat IR to reassess today Gastrointestinal: Yes: Abdominal Pain Physical Examination Vital Signs: Vital Signs Temperature 98.3 F 07/26/19 06:06 Pulse Rate 94 H 07/26/19 06:06 Respiratory Rate 22 H 07/26/19 06:06 Blood Pressure 172/103 H 07/26/19 06:06 O2 Sat by Pulse Oximetry (%) 97 07/25/19 21:00 Constitutional: Yes: Mild Distress Eyes: Yes: Conjunctiva Clear, EOM Intact, PERRL, Sclera Icterus HENT: Yes: WNL, Atraumatic, Normocephalic Neck: Yes: WNL, Supple, Trachea Midline Cardiovascular: Yes: WNL, Regular Rate and Rhythm, S1, S2 Respiratory: Yes: WNL, Regular, CTA Bilaterally Gastrointestinal: Yes: Soft, Ascites, Distention, Hypoactive Bowel Sounds, Tenderness, Tenderness, Epigastrium Edema: No Peripheral Pulses WNL: Yes ...Motor Strength: WNL Psychiatric: Yes: Alert, Oriented Labs: CBC, BMP 07/25/19 05:47 07/25/19 05:47 Hospitalist Encounter Outcome: d/w RN
[2019-07-26] MEDS ORDERED: DEXTROSE 5%-WATER - 50 ML IVPB ONE (08:14)
[2019-07-26] MEDS: POTASSIUM CHLORIDE 40 MEQ in SODIUM CHLORIDE 0.45% 1,000 ML IVPB SCH (08:30)
--- NOTE | 2019-07-26 08:50 | PN ---
Progress Note, Physician - Current Medication List Current Medications: Active Medications Albuterol Sulfate (Ventolin 0.083% Nebulizer Soln -) 1 amp NEB RQID PRN PRN Reason: SHORT OF BREATH/WHEEZING Folic Acid (Folic Acid -) 1 mg PO DAILY [facility] Last Admin: 07/25/19 09:58 Dose: 1 mg Ceftriaxone Sodium 2 gm/ (Dextrose) 50 mls @ 100 mls/hr IVPB DAILY [facility]; Protocol Last Admin: 07/25/19 09:58 Dose: 100 mls/hr Potassium Chloride 40 meq/ (Sodium Chloride) 1,020 mls @ 100 mls/hr IVPB Q10H [facility] Last Admin: 07/26/19 08:30 Dose: 100 mls/hr Lactulose (Cephulac (Oral Use)) 20 gm PO QID [facility] Last Admin: 07/25/19 22:40 Dose: 20 gm Rifaximin (Xifaxan -) 550 mg PO BID [facility] Last Admin: 07/25/19 22:40 Dose: 550 mg Spironolactone (Aldactone -) 25 mg PO DAILY [facility] Last Admin: 07/25/19 09:58 Dose: 25 mg Thiamine HCl (Vitamin B1 -) 100 mg PO DAILY [facility] Last Admin: 07/25/19 09:58 Dose: 100 mg - Objective Vital Signs: Vital Signs Temperature 98.3 F 07/26/19 06:06 Pulse Rate 94 H 07/26/19 06:06 Respiratory Rate 22 H 07/26/19 06:06 Blood Pressure 172/103 H 07/26/19 06:06 O2 Sat by Pulse Oximetry (%) 97 07/25/19 21:00 Cardiovascular: Yes: S1, S2 Respiratory: Yes: Regular, CTA Bilaterally Gastrointestinal: Yes: Normal Bowel Sounds, Soft, Ascites, Distention. No: Tenderness Labs: CBC, BMP 07/25/19 05:47 07/25/19 05:47 INR, PTT INR 1.86 (0.83-1.09) H 07/25/19 09:40 Problem List - Problems (1) Hepatic encephalopathy Assessment/Plan: LACTULOSE GI ON CASE CT HEAD NAD FOLLOW LABS Code(s): K72.90 - HEPATIC FAILURE, UNSPECIFIED WITHOUT COMA (2) Alcohol abuse Assessment/Plan: MONITOR FOR WITHDRAWALS Code(s): F10.10 - ALCOHOL ABUSE, UNCOMPLICATED (3) Hypokalemia Assessment/Plan: RESOLVED REPLACE AND MONITOR Code(s): E87.6 - HYPOKALEMIA (4) Prolonged QT interval Assessment/Plan: REPLACE ELECTROLYTES AND MONITOR CARDIO NOTED Code(s): R94.31 - ABNORMAL ELECTROCARDIOGRAM [ECG] [EKG] (5) Ascites Assessment/Plan: GI IR S/P PARACENTSIS Code(s): R18.8 - OTHER ASCITES (6) Cirrhosis Assessment/Plan: GI NOTED WILL NEED FOLLOW UP AND W/U AT [facility] Code(s): K74.60 - UNSPECIFIED CIRRHOSIS OF LIVER (7) Abdominal pain Assessment/Plan: XRAY AND LABS Code(s): R10.9 - UNSPECIFIED ABDOMINAL PAIN
[2019-07-26] MEDS: RIFAXIMIN 550 MG TABLET (UD) PO SCH ×2 (10:03→23:31)
[2019-07-26] MEDS: CEFTRIAXONE 2 GM in DEXTROSE 5%-WATER - 50 ML IVPB SCH (10:03)
[2019-07-26] MEDS: SPIRONOLACTONE 25 MG TABLET (FP) PO SCH (10:04)
[2019-07-26] MEDS: THIAMINE HCL 100 MG TABLET (FP) PO SCH (10:04)
[2019-07-26] MEDS: LACTULOSE 20 GM/30 ML UDC (FOR ORAL USE ONLY) PO SCH ×4 (10:04→23:31)
[2019-07-26] MEDS: FOLIC ACID 1 MG TABLET (FP) PO SCH (10:04)
[2019-07-26 10:38] LABS: BASO % 0.8 % (0-2.0); EOS % 1.4 % (0-4.5); HEMATOCRIT 39.1 % (32.4-45.2); HEMOGLOBIN 13.1 GM/dL (10.7-15.3); LYMPH % 21.2 % (8-40); MCH 37.3 pg (25.7-33.7); MCHC 33.5 g/dl (32.0-36.0); MEAN CELL VOLUME 111.2 fl (80-96); MEAN PLT VOLUME 8.9 fl (7.5-11.1); MONO % 9.5 % (3.8-10.2); NEUT % 67.1 % (42.8-82.8); PLATELET COUNT 180 K/MM3 (134-434); RBC 3.51 M/mm3 (3.60-5.2); RDW 15.9 % (11.6-15.6)
[2019-07-26 10:58] LABS: ALBUMIN 1.9 g/dl (3.4-5.0); BILIRUBIN,TOTAL 2.4 mg/dL (0.2-1); BLOOD UREA NITROGEN 3.4 mg/dL (7-18); CREATININE 0.8 mg/dL (0.55-1.3); POTASSIUM 4.3 mmol/L (3.5-5.1); TOT PROT 9.5 g/dl (6.4-8.2)
--- NOTE | 2019-07-26 12:49 | PN ---
Progress Note, Physician History of Present Illness: The patient seen and examined in her bed. Has some abdominal discomfort. Had large volume paracentesis yesterday. The abdomen still quite distended. Noted infusion of Saline in progress at 100 ml/ hr. Will stop the same. - Current Medication List Current Medications: Active Medications Albuterol Sulfate (Ventolin 0.083% Nebulizer Soln -) 1 amp NEB RQID PRN PRN Reason: SHORT OF BREATH/WHEEZING Folic Acid (Folic Acid -) 1 mg PO DAILY [facility] Last Admin: 07/26/19 10:04 Dose: 1 mg Ceftriaxone Sodium 2 gm/ (Dextrose) 50 mls @ 100 mls/hr IVPB DAILY [facility]; Protocol Last Admin: 07/26/19 10:03 Dose: 100 mls/hr Lactulose (Cephulac (Oral Use)) 20 gm PO QID [facility] Last Admin: 07/26/19 10:04 Dose: 20 gm Rifaximin (Xifaxan -) 550 mg PO BID [facility] Last Admin: 07/26/19 10:03 Dose: 550 mg Spironolactone (Aldactone -) 25 mg PO DAILY [facility] Last Admin: 07/26/19 10:04 Dose: 25 mg Thiamine HCl (Vitamin B1 -) 100 mg PO DAILY [facility] Last Admin: 07/26/19 10:04 Dose: 100 mg - Objective Vital Signs: Vital Signs Temperature 98.3 F 07/26/19 10:00 Pulse Rate 91 H 07/26/19 10:00 Respiratory Rate 22 H 07/26/19 10:00 Blood Pressure 159/92 07/26/19 10:00 O2 Sat by Pulse Oximetry (%) 97 07/26/19 09:00 Constitutional: Yes: Anxious Eyes: Yes: Conjunctiva Clear HENT: Yes: Normocephalic Neck: Yes: Supple, Trachea Midline Cardiovascular: Yes: Regular Rate and Rhythm, S1, S2 Respiratory: Yes: Regular, Diminished Gastrointestinal: Yes: Normal Bowel Sounds, Soft, Ascites Edema: Yes Edema: LLE: Trace, RLE: Trace Neurological: Yes: Alert, Oriented Labs: CBC, BMP 07/26/19 09:50 07/26/19 09:50 INR, PTT INR 1.86 (0.83-1.09) H 07/25/19 09:40 Problem List - Problems (1) Abdominal pain Code(s): R10.9 - UNSPECIFIED ABDOMINAL PAIN (2) Alcohol abuse Code(s): F10.10 - ALCOHOL ABUSE, UNCOMPLICATED (3) Ascites Code(s): R18.8 - OTHER ASCITES (4) Cirrhosis Code(s): K74.60 - UNSPECIFIED CIRRHOSIS OF LIVER (5) Hepatic encephalopathy Code(s): K72.90 - HEPATIC FAILURE, UNSPECIFIED WITHOUT COMA (6) Hypoalbuminemia Code(s): E88.09 - OTH DISORDERS OF PLASMA-PROTEIN METABOLISM, NEC (7) Hypokalemia Code(s): E87.6 - HYPOKALEMIA (8) Hypomagnesemia Code(s): E83.42 - HYPOMAGNESEMIA Assessment/Plan 59 year old woman with history of hypertension, bronchial asthma, alcohol abuse who presented from home with confusion, lethargry, abdomnal pain and found to have possible hepatic encephalopathy and hypokalemia. The patient underwent large volume paracentesis yesterday. Vital signs are stable. 1. Persistant hypokalemia , and now corrected with KCl supplements. Will continue Aldactone as ordered. . 2. Hypomagnesemia 3. Hepatic encephalopathy. The patient being followed by the GI team. 4. ETOH abuse 5. Hypertenson 6. Extremely low BUN reflective of significant liver disease and deranged ureagenesis./ Will monitor the renal/ electrolyte profile [id number]. Devika Carcamo MD
--- NOTE | 2019-07-26 17:51 | PN.GI ---
GI Progress Note Subjective: No acute events 5 L paracentesis. no evidence of SBP. Total protein low in the fluid, however albumin was not checked. SAAG cannot be calculated - Objective Vital Signs: Vital Signs Temperature 98.7 F 07/26/19 15:42 Pulse Rate 99 H 07/26/19 15:42 Respiratory Rate 20 07/26/19 15:42 Blood Pressure 157/87 07/26/19 15:42 O2 Sat by Pulse Oximetry (%) 97 07/26/19 09:00 Constitutional: Calm Eyes: No: Sclera Icterus Cardiovascular: Yes: Regular Rate and Rhythm Gastrointestinal Inspection: Yes: Distention ...Auscultate: Yes: Normoactive Bowel Sounds ...Palpate: Yes: Soft ...Percussion: No: Tympanitic Edema: No (No LE edema) Neurological: Yes: Alert, Oriented (x person, partially to place), Confusion. No: Asterixis Labs: CBC, BMP 07/26/19 09:50 07/26/19 09:50 INR, PTT INR 1.86 (0.83-1.09) H 07/25/19 09:40 Problem List - Problems (1) Cirrhosis Assessment/Plan: With sequelae of ascites and HE: Continue Lactulose. Titrate to 4-5 loose BM's per day evaluation for alternate causes of confusion per primary team Increase diuretic to 50mg daily, add lasix 20mg daily, monitor lytes and corect as needed. magnesium was low yesterday. Recheck Code(s): K74.60 - UNSPECIFIED CIRRHOSIS OF LIVER
[2019-07-27 06:41] LABS: ALBUMIN 1.7 g/dl (3.4-5.0); BILIRUBIN,TOTAL 2.1 mg/dL (0.2-1); CALCIUM 7.8 mg/dL (8.5-10.1); CREATININE 0.8 mg/dL (0.55-1.3); MAGNESIUM 1.7 mg/dL (1.8-2.4); POTASSIUM 3.8 mmol/L (3.5-5.1)
[2019-07-27 06:51] LABS: BLOOD UREA NITROGEN 1.8 mg/dL (7-18)
[2019-07-27] MEDS ORDERED: DEXTROSE 5%-WATER - 50 ML IVPB ONE (07:32)
[2019-07-27 09:24] LABS: BASO % 1.1 % (0-2.0); EOS % 2.6 % (0-4.5); LYMPH % 30.6 % (8-40); MCH 37.5 pg (25.7-33.7); MCHC 34.2 g/dl (32.0-36.0); MEAN CELL VOLUME 109.6 fl (80-96); MEAN PLT VOLUME 8.9 fl (7.5-11.1); NEUT % 53.7 % (42.8-82.8); PLATELET COUNT 177 K/MM3 (134-434); RDW 15.7 % (11.6-15.6); WHITE BLOOD COUNT 8.7 K/mm3 (4.0-10.0)
[2019-07-27] MEDS: RIFAXIMIN 550 MG TABLET (UD) PO SCH ×2 (09:50→21:37)
[2019-07-27] MEDS: FOLIC ACID 1 MG TABLET (FP) PO SCH (09:53)
[2019-07-27] MEDS: THIAMINE HCL 100 MG TABLET (FP) PO SCH (09:53)
[2019-07-27] MEDS: CEFTRIAXONE 2 GM in DEXTROSE 5%-WATER - 50 ML IVPB SCH (09:53)
[2019-07-27] MEDS: LACTULOSE 20 GM/30 ML UDC (FOR ORAL USE ONLY) PO SCH ×4 (09:54→21:37)
[2019-07-27] MEDS: SPIRONOLACTONE 25 MG TABLET (FP) PO SCH (09:55)
[2019-07-27] MEDS: FUROSEMIDE 20 MG TABLET (FP) PO SCH (09:55)
--- NOTE | 2019-07-27 10:49 | PATH ---
Cytology Non-Gynecological Report Patient Name: SANDRA BETH Med. Rec. #: [id number] /Age/Gender: 1960 (Age: 59) / F Account: [id number] Location: 4 W TELEMETRY U Taken: 07/25/2019 Received: 07/25/2019 Reported: 07/27/2019 Physicians: Saqib Allen M.D. Specimen(s) Received A: ABDOMINAL FLUID B: ABDOMINAL FLUID Clinical History Ascites Final Diagnosis A-B. ABDOMINAL FLUID, PARACENTESIS: SATISFACTORY FOR EVALUATION. NO MALIGNANT CELLS IDENTIFIED. MESOTHELIAL CELLS, MACROPHAGES, AND LYMPHOCYTES PRESENT. Electronically Signed Sandra Johnson M.D. Gross Description A. Approximately 60 cc of yellow fluid received fixed in 50% alcohol. One cytofunnel prepared and Pap stained. One cellblock prepared. B. Approximately 5500 cc of yellow fluid received fresh. One cytofunnel prepared and Pap stained. One cellblock prepared.
--- NOTE | 2019-07-27 11:54 | PN ---
Progress Note, Physician Chief Complaint: The patient seen and examined in her room. Lying on bed. Feeling better. History of Present Illness: Had large volume paracentesis The abdomen still quite distended. No abd pains. maintains good urine output. - Current Medication List Current Medications: Active Medications Albuterol Sulfate (Ventolin 0.083% Nebulizer Soln -) 1 amp NEB RQID PRN PRN Reason: SHORT OF BREATH/WHEEZING Folic Acid (Folic Acid -) 1 mg PO DAILY [facility] Last Admin: 07/27/19 09:53 Dose: 1 mg Furosemide (Lasix -) 20 mg PO DAILY [facility] Last Admin: 07/27/19 09:55 Dose: 20 mg Lactulose (Cephulac (Oral Use)) 20 gm PO QID [facility] Last Admin: 07/27/19 09:54 Dose: 20 gm Rifaximin (Xifaxan -) 550 mg PO BID [facility] Last Admin: 07/27/19 09:50 Dose: 550 mg Spironolactone (Aldactone -) 50 mg PO DAILY [facility] Last Admin: 07/27/19 09:55 Dose: 50 mg Thiamine HCl (Vitamin B1 -) 100 mg PO DAILY [facility] Last Admin: 07/27/19 09:53 Dose: 100 mg - Objective Vital Signs: Vital Signs Temperature 98.6 F 07/27/19 05:40 Pulse Rate 102 H 07/27/19 05:40 Respiratory Rate 20 07/27/19 09:00 Blood Pressure 157/105 H 07/27/19 05:40 O2 Sat by Pulse Oximetry (%) 99 07/27/19 09:00 Constitutional: Yes: No Distress, Anxious HENT: Yes: Normocephalic Neck: Yes: Trachea Midline Cardiovascular: Yes: Regular Rate and Rhythm, S1, S2 Respiratory: Yes: CTA Bilaterally, Diminished Gastrointestinal: Yes: Normal Bowel Sounds, Soft, Ascites Genitourinary: No: Bladder Distention, CVA Tenderness - Left, CVA Tenderness - Right Extremities: Yes: WNL Edema: No Neurological: Yes: Alert, Oriented Labs: CBC, BMP 07/27/19 05:40 07/27/19 05:40 INR, PTT INR 1.86 (0.83-1.09) H 07/25/19 09:40 Problem List - Problems (1) Abdominal pain Code(s): R10.9 - UNSPECIFIED ABDOMINAL PAIN (2) Alcohol abuse Code(s): F10.10 - ALCOHOL ABUSE, UNCOMPLICATED (3) Ascites Code(s): R18.8 - OTHER ASCITES (4) Cirrhosis Code(s): K74.60 - UNSPECIFIED CIRRHOSIS OF LIVER (5) Hepatic encephalopathy Code(s): K72.90 - HEPATIC FAILURE, UNSPECIFIED WITHOUT COMA (6) Hypoalbuminemia Code(s): E88.09 - OTH DISORDERS OF PLASMA-PROTEIN METABOLISM, NEC (7) Hypokalemia Code(s): E87.6 - HYPOKALEMIA (8) Hypomagnesemia Code(s): E83.42 - HYPOMAGNESEMIA Assessment/Plan 59 year old woman with history of hypertension, bronchial asthma, alcohol abuse who presented from home with confusion, lethargry, abdomnal pain and found to have possible hepatic encephalopathy and hypokalemia. The patient underwent large volume paracentesis. Vital signs stable. 1. Persistant hypokalemia , and now corrected with KCl supplements. Will continue Aldactone as ordered. If the Serum K drops further, may need KCl supplements. 2. Hypomagnesemia. Will check levels. 3. Hepatic encephalopathy. The patient being followed by the GI team. 4. ETOH abuse 5. Hypertenson 6. Extremely low BUN reflective of significant liver disease and deranged ureagenesis Will monitor the renal/ electrolyte profile closely. Devika Carcamo MD
--- NOTE | 2019-07-27 12:02 | PN ---
Progress Note, Physician Chief Complaint: AMS Hepatic encephalopathy Alcoholic cirrhosis History of Present Illness: S/p paracentesis 5 L Abdomen still large No abd pain - Current Medication List Current Medications: Active Medications Albuterol Sulfate (Ventolin 0.083% Nebulizer Soln -) 1 amp NEB RQID PRN PRN Reason: SHORT OF BREATH/WHEEZING Folic Acid (Folic Acid -) 1 mg PO DAILY [facility] Last Admin: 07/27/19 09:53 Dose: 1 mg Furosemide (Lasix -) 20 mg PO DAILY [facility] Last Admin: 07/27/19 09:55 Dose: 20 mg Lactulose (Cephulac (Oral Use)) 20 gm PO QID [facility] Last Admin: 07/27/19 09:54 Dose: 20 gm Magnesium Oxide (Mag-Ox -) 400 mg PO BID [facility] Rifaximin (Xifaxan -) 550 mg PO BID [facility] Last Admin: 07/27/19 09:50 Dose: 550 mg Spironolactone (Aldactone -) 50 mg PO DAILY [facility] Last Admin: 07/27/19 09:55 Dose: 50 mg Thiamine HCl (Vitamin B1 -) 100 mg PO DAILY [facility] Last Admin: 07/27/19 09:53 Dose: 100 mg - Objective Vital Signs: Vital Signs Temperature 98.6 F 07/27/19 05:40 Pulse Rate 102 H 07/27/19 05:40 Respiratory Rate 20 07/27/19 09:00 Blood Pressure 157/105 H 07/27/19 05:40 O2 Sat by Pulse Oximetry (%) 99 07/27/19 09:00 Constitutional: Yes: Well Nourished, No Distress, Calm Cardiovascular: Yes: Regular Rate and Rhythm Respiratory: Yes: Regular, CTA Bilaterally Gastrointestinal: Yes: Soft, Abdomen, Obese, Distention Genitourinary: Yes: WNL Musculoskeletal: Yes: Muscle Weakness Extremities: Yes: WNL Edema: Yes Edema: LLE: Trace, RLE: Trace Peripheral Pulses WNL: Yes Neurological: Yes: Alert, Oriented Psychiatric: Yes: Alert, Oriented Labs: CBC, BMP 07/27/19 05:40 07/27/19 05:40 INR, PTT INR 1.86 (0.83-1.09) H 07/25/19 09:40 Problem List - Problems (1) Abdominal pain Assessment/Plan: GI on board -Pain resolved s/p paracentesis 5 L Problems reviewed: Yes Code(s): R10.9 - UNSPECIFIED ABDOMINAL PAIN (2) Alcohol abuse Assessment/Plan: -Abstinence encouraged Problems reviewed: Yes Code(s): F10.10 - ALCOHOL ABUSE, UNCOMPLICATED (3) Cirrhosis Assessment/Plan: -2/2 to alcohol use -monitor LFT's Problems reviewed: Yes Code(s): K74.60 - UNSPECIFIED CIRRHOSIS OF LIVER (4) Hepatic encephalopathy Problems reviewed: Yes Code(s): K72.90 - HEPATIC FAILURE, UNSPECIFIED WITHOUT COMA (5) Hypoalbuminemia Problems reviewed: Yes Code(s): E88.09 - OTH DISORDERS OF PLASMA-PROTEIN METABOLISM, NEC (6) Hypomagnesemia Assessment/Plan: -MagOx 400 mg po BID Problems reviewed: Yes Code(s): E83.42 - HYPOMAGNESEMIA (7) Hypokalemia Assessment/Plan: -resolved -Nephrology on board -monitor trend Problems reviewed: Yes Code(s): E87.6 - HYPOKALEMIA Assessment/Plan see problem list Physical therapy
[2019-07-27] MEDS: MAGNESIUM OXIDE 400 MG TABLET (FP) PO SCH ×2 (13:42→21:37)
--- NOTE | 2019-07-27 19:40 | PN.GI ---
GI Progress Note Subjective: Pt seen/examined at bedside, feeling better, more alert, moving bowels, tolerating po - Objective Vital Signs: Vital Signs Temperature 98.7 F 07/27/19 17:36 Pulse Rate 98 H 07/27/19 17:36 Respiratory Rate 20 07/27/19 17:36 Blood Pressure 158/90 07/27/19 17:36 O2 Sat by Pulse Oximetry (%) 99 07/27/19 09:00 Constitutional: No Distress, Calm, Other (alert, oriented x 3, no asterixis) Cardiovascular: Yes: WNL, Regular Rate and Rhythm Respiratory: Yes: WNL, Regular, CTA Bilaterally ...Palpate: Yes: Other (Abd softly distended, nontender) Edema: No Labs: CBC, BMP 07/27/19 05:40 07/27/19 05:40 INR, PTT INR 1.86 (0.83-1.09) H 07/25/19 09:40 Problem List - Problems (1) Alcoholic cirrhosis Assessment/Plan: with ascites s/p paracentesis wtih 5L removed (as noted albumin not checked), otherwise no evidence of SBP. Clinically has improved. -Continue lasix 20mg and aldactone 5mg daily -Continue to closely monitor electrolytes and replete as needed -Continue rifaximin and lactulose titrate to 2-3 loose bms -HBV vaccination as pt is nonimmune -Pt will require EGD to assess for varices -Pending course and disposition will need to ensure close liver follow up Code(s): K70.30 - ALCOHOLIC CIRRHOSIS OF LIVER WITHOUT ASCITES
[2019-07-27] MEDS ORDERED: PT OWN MED DRAWER 7, Y5N ONE (20:50)
[2019-07-28 08:13] LABS: ALBUMIN 1.7 g/dl (3.4-5.0); BILIRUBIN,TOTAL 2.1 mg/dL (0.2-1); CALCIUM 7.8 mg/dL (8.5-10.1); CREATININE 0.8 mg/dL (0.55-1.3); MAGNESIUM 1.6 mg/dL (1.8-2.4); POTASSIUM 3.3 mmol/L (3.5-5.1)
[2019-07-28 08:18] VITALS: BMI 29.9
[2019-07-28 08:20] LABS: BLOOD UREA NITROGEN 2.8 mg/dL (7-18)
[2019-07-28 08:43] LABS: BASO % 1.3 % (0-2.0); EOS % 2.4 % (0-4.5); HEMATOCRIT 34.5 % (32.4-45.2); HEMOGLOBIN 11.7 GM/dL (10.7-15.3); LYMPH % 31.7 % (8-40); MCHC 33.9 g/dl (32.0-36.0); MEAN PLT VOLUME 8.9 fl (7.5-11.1); MONO % 10.9 % (3.8-10.2); NEUT % 53.7 % (42.8-82.8); PLATELET COUNT 186 K/MM3 (134-434); RBC 3.16 M/mm3 (3.60-5.2); RDW 15.9 % (11.6-15.6); WHITE BLOOD COUNT 8.9 K/mm3 (4.0-10.0)
[2019-07-28 10:26] LABS: ANISOCYTOSIS 3+; MACROCYTOSIS 3+; PLATELET ESTIMATE NORMAL
[2019-07-28] MEDS ORDERED: POTASSIUM CHLORIDE ORAL LIQUID 20 MEQ/15 ML PO ONE (10:30)
[2019-07-28] MEDS: RIFAXIMIN 550 MG TABLET (UD) PO SCH (10:38)
[2019-07-28] MEDS: THIAMINE HCL 100 MG TABLET (FP) PO SCH (10:38)
[2019-07-28] MEDS: LACTULOSE 20 GM/30 ML UDC (FOR ORAL USE ONLY) PO SCH (10:39)
[2019-07-28] MEDS: MAGNESIUM OXIDE 400 MG TABLET (FP) PO SCH (10:39)
[2019-07-28] MEDS: SPIRONOLACTONE 25 MG TABLET (FP) PO SCH (10:39)
[2019-07-28] MEDS: FUROSEMIDE 20 MG TABLET (FP) PO SCH (10:39)
[2019-07-28] MEDS: FOLIC ACID 1 MG TABLET (FP) PO SCH (10:39)
--- NOTE | 2019-07-28 10:58 | DS ---
Physical Examination Vital Signs: Vital Signs Temperature 98.8 F 07/28/19 06:00 Pulse Rate 93 H 07/28/19 06:00 Respiratory Rate 20 07/28/19 06:00 Blood Pressure 150/90 07/28/19 06:00 O2 Sat by Pulse Oximetry (%) 99 07/27/19 21:00 Findings/Remarks: Laboratory Last Values WBC 8.9 K/mm3 (4.0-10.0) 07/28/19 06:45 RBC 3.16 M/mm3 (3.60-5.2) L 07/28/19 06:45 Hgb 11.7 GM/dL (10.7-15.3) 07/28/19 06:45 Hct 34.5 % (32.4-45.2) 07/28/19 06:45 MCV 109.0 fl (80-96) H 07/28/19 06:45 MCH 37.0 pg (25.7-33.7) H 07/28/19 06:45 MCHC 33.9 g/dl (32.0-36.0) 07/28/19 06:45 RDW 15.9 % (11.6-15.6) H 07/28/19 06:45 Plt Count 186 K/MM3 (134-434) 07/28/19 06:45 MPV 8.9 fl (7.5-11.1) 07/28/19 06:45 Absolute Neuts (auto) 4.8 K/mm3 (1.5-8.0) 07/28/19 06:45 Neutrophils % 53.7 % (42.8-82.8) 07/28/19 06:45 Lymphocytes % 31.7 % (8-40) 07/28/19 06:45 Monocytes % 10.9 % (3.8-10.2) H 07/28/19 06:45 Eosinophils % 2.4 % (0-4.5) 07/28/19 06:45 Basophils % 1.3 % (0-2.0) 07/28/19 06:45 Nucleated RBC % 0 % (0-0) 07/28/19 06:45 Hypochromia 0 07/28/19 06:45 Platelet Estimate Normal 07/28/19 06:45 Polychromasia 0 07/28/19 06:45 Poikilocytosis 0 07/28/19 06:45 Anisocytosis 3+ 07/28/19 06:45 Microcytosis 0 07/28/19 06:45 Macrocytosis 3+ 07/28/19 06:45 PT with INR 22.10 SEC (9.7-13.0) H 07/25/19 09:40 INR 1.86 (0.83-1.09) H 07/25/19 09:40 PTT (Actin FS) 32.1 SECONDS (25.2-36.5) 07/21/19 17:34 Sodium 135 mmol/L (136-145) L 07/28/19 06:45 Potassium 3.3 mmol/L (3.5-5.1) L 07/28/19 06:45 Chloride 106 mmol/L (98-107) 07/28/19 06:45 Carbon Dioxide 23 mmol/L (21-32) 07/28/19 06:45 Anion Gap 6 MMOL/L (8-16) L 07/28/19 06:45 BUN 2.8 mg/dL (7-18) L* 07/28/19 06:45 Creatinine 0.8 mg/dL (0.55-1.3) 07/28/19 06:45 Est GFR (CKD-EPI)AfAm 93.53 07/28/19 06:45 Est GFR (CKD-EPI)NonAf 80.70 07/28/19 06:45 Random Glucose 87 mg/dL (74-106) 07/28/19 06:45 Lactic Acid 2.5 mmol/L (0.4-2.0) H* 07/22/19 10:50 Calcium 7.8 mg/dL (8.5-10.1) L 07/28/19 06:45 Phosphorus 2.8 mg/dL (2.5-4.9) 07/23/19 06:20 Magnesium 1.6 mg/dL (1.8-2.4) L 07/28/19 06:45 Total Bilirubin 2.1 mg/dL (0.2-1) H 07/28/19 06:45 AST 135 U/L (15-37) H 07/28/19 06:45 ALT 50 U/L (13-61) 07/28/19 06:45 Alkaline Phosphatase 144 U/L (45-117) H 07/28/19 06:45 Ammonia 117.40 umol/L (11-32) H 07/21/19 17:34 Creatine Kinase 1303 U/L (26-192) H 07/21/19 17:34 Creatine Kinase Index 0.3 % (0.0-5.0) 07/21/19 17:34 CK-MB (CK-2) 4.2 ng/mL (0.5-3.6) H 07/21/19 17:34 Troponin I 0.02 ng/ml (0.00-0.05) 07/21/19 17:34 Total Protein 9.0 g/dl (6.4-8.2) H 07/28/19 06:45 Albumin 1.7 g/dl (3.4-5.0) L 07/28/19 06:45 Lipase 182 U/L (73-393) 07/21/19 17:34 Fluid Source Peritoneal 07/25/19 12:35 Fluid WBC 194 /mm3 07/25/19 12:35 Fluid RBC 381 /mm3 07/25/19 12:35 Fluid Neutrophils 2 % 07/25/19 12:35 Fluid Lymphocytes 44 % 07/25/19 12:35 Fluid Glucose 91 mg/dL (.) 07/25/19 12:35 Fluid Total Protein 1.3 g/dL (.) 07/25/19 12:35 Body Fluid LDH Source 88 IU/L (.) 07/25/19 12:35 Fluid Amylase 38 U/L (.) 07/25/19 12:35 Fluid Cholesterol 19 mg/dL (.) 07/25/19 12:35 Fluid Triglycerides 19 mg/dL (Not Estab.) 07/25/19 12:35 Pleural Eosinophils 1 % 07/25/19 12:35 Pleural Basophils 1 % 07/25/19 12:35 Pleural Macrophages 45 % 07/25/19 12:35 Pleural Mesothelial 7 % 07/25/19 12:35 Hep A IgM Ab Confirm Negative (Negative) 07/22/19 06:00 Hepatitis A Ab Total Positive (Negative) H 07/22/19 06:00 Hep Bs Antigen Negative (Negative) 07/22/19 06:00 Hep Bs Antibody Non reactive (.) 07/22/19 06:00 Hep B Core Total Ab Negative (Negative) 07/22/19 06:00 Hep B Core IgM Ab Negative (Negative) 07/22/19 06:00 Hepatitis Be Antibody Negative (Negative) 07/22/19 06:00 Hepatitis Be Antigen Negative (Negative) 07/22/19 06:00 Active Medications Generic Name Dose Route Start Last Admin Trade Name Freq PRN Reason Stop Dose Admin Albuterol Sulfate 1 amp 07/23/19 09:40 Ventolin 0.083% Nebulizer Soln - NEB RQID PRN SHORT OF BREATH/WHEEZING Folic Acid 1 mg 07/23/19 10:00 07/28/19 10:39 Folic Acid - PO 1 mg DAILY DAYNE Administration Furosemide 20 mg 07/27/19 10:00 07/28/19 10:39 Lasix - PO 20 mg DAILY DAYNE Administration Lactulose 20 gm 07/24/19 10:00 07/28/19 10:39 Cephulac (Oral Use) PO 20 gm QID DAYNE Administration Magnesium Oxide 400 mg 07/27/19 12:00 07/28/19 10:39 Mag-Ox - PO 400 mg BID DAYNE Administration Rifaximin 550 mg 07/23/19 22:00 07/28/19 10:38 Xifaxan - PO 550 mg BID DAYNE Administration Spironolactone 50 mg 07/27/19 10:00 07/28/19 10:39 Aldactone - PO 50 mg DAILY DAYNE Administration Thiamine HCl 100 mg 07/23/19 10:00 07/28/19 10:38 Vitamin B1 - PO 100 mg DAILY DAYNE Administration Microbiology 07/25/19 12:35 Peritoneal Fluid AFB Smear Concentration - Final 07/25/19 12:35 Peritoneal Fluid Mycobacterial Culture - Preliminary 07/25/19 12:35 Peritoneal Fluid Gram Stain - Final 07/25/19 12:35 Peritoneal Fluid Body Fluid Culture - Final NO GROWTH OF AEROBIC ORGANISMS AFTER 48 HOURS INCUBATION 07/25/19 12:35 Peritoneal Fluid Anaerobic Culture - Final NO ANAEROBES WERE ISOLATED 07/25/19 12:35 Peritoneal Fluid ADITYA Preparation - Preliminary 07/25/19 12:35 Peritoneal Fluid Fungal Culture - Preliminary Constitutional: Yes: No Distress, Calm Eyes: Yes: Conjunctiva Clear HENT: Yes: Atraumatic Cardiovascular: Yes: Regular Rate and Rhythm Respiratory: Yes: Regular, CTA Bilaterally Gastrointestinal: Yes: Normal Bowel Sounds, Soft, Ascites Musculoskeletal: Yes: Muscle Weakness Extremities: Yes: WNL Edema: No Neurological: Yes: Alert Psychiatric: Yes: Alert Labs: CBC, BMP 07/28/19 06:45 07/28/19 06:45 Discharge Summary Problems reviewed: Yes Reason For Visit: ASCITES,JAUNDICE,HEPATIC ENCEPHALOPATHY,HYPOKALEMI Current Active Problems Abdominal pain (Acute) Alcohol abuse (Acute) Alcoholic cirrhosis (Acute) Ascites (Acute) Cirrhosis (Acute) Hepatic encephalopathy (Acute) Hypoalbuminemia (Acute) Hypokalemia (Acute) Hypomagnesemia (Acute) Jaundice (Acute) Prolonged QT interval (Acute) Hospital Course: 59 year old female mainly Haitian speaking female with history of hypertension, asthma, psychiatric issues, and daily alcohol use who presents as per family with symptoms of confusion, lethargy, abdominal pain and anorexia for 4 days. She denied shortness of breath, chest pain,dizziness, palpitations, nausea, vomiting, diarrhea or constipation. Patient was evaluated by GI while in patient for ascites 2/2 to liver cirrhosis. Underwent paracentesis with IR and 5L removed. Needs close follow up with PCP and GI as outpatient. Will need to follow up with GI as outpatient for further management of cirrhosis and EGD to assess for varices. Condition: Stable - Instructions Diet, Activity, Other Instructions: Follow up with Dr Rose in 2 weeks for monitoring of your electrolytes while taking medication for your liver Follow up with [facility] Dr Cleveland in 2 weeks for monitoring of your liver and for Endoscopy to assess for varices explained importance of abstaining from alcohol in regards to medial condition low sodium diet weight yourself daily to check if you are retaining fluid return to ER if develop severe pain, respiratory distress, chest pain Referrals: Cody Cleveland DO [Staff Physician] - Shaquille Rose [Non Staff, Medical] - Disposition: [facility]NS/HOME HEALTH CARE - Home Medications Comprehensive Discharge Medication List: Ambulatory Orders Citalopram Hydrobromide [Celexa -] 40 mg PO DAILY 03/02/14 Haloperidol 2.5 mg PO DAILY 03/02/14 Quetiapine Fumarate [Seroquel -] 200 mg PO HS 03/02/14 hydrOXYzine PAMOATE [Vistaril -] 50 mg PO TID 03/02/14 Folic Acid - 1 mg PO DAILY #30 tablet 07/28/19 Furosemide [Lasix -] 20 mg PO DAILY #30 tablet 07/28/19 Lactulose (Oral Use) [Cephulac -] 20 gm PO QID #1 bottle 07/28/19 Magnesium Oxide [Mag-Ox -] 400 mg PO BID #60 tablet 07/28/19 Rifaximin [Xifaxan -] 550 mg PO BID #60 tablet 07/28/19 Spironolactone [Aldactone -] 50 mg PO DAILY #60 tablet 07/28/19 Thiamine HCl [Vitamin B1 -] 100 mg PO DAILY #30 tablet 07/28/19
[2019-07-28 12:13] VITALS: BP 147/88; PULSE 88; TEMP 98.9
== END 2019-07-28 14:21 | disposition home health service (06) | DRG 264 ==
LOC: JER 16:53 → JERBED 20:38 → JICU 07-22 02:40 → J4W 07-22 22:21
PROVIDERS: ADMIT Internal Medicine; ATTEND Family Medicine
PROC: 0W9G3ZX Drainage of Peritoneal Cavity, Percutaneous Approach, Diagnostic (ICD-10-PCS; principal; 2019-07-25)
DX: K70.31 Alcoholic cirrhosis of liver with ascites (principal); K72.90 Hepatic failure, unspecified without coma; F41.8 Other specified anxiety disorders; I10 Essential (primary) hypertension; R41.82 Altered mental status, unspecified; E87.6 Hypokalemia; E83.42 Hypomagnesemia; E88.09 Other disorders of plasma-protein metabolism, not elsewhere classified; J45.909 Unspecified asthma, uncomplicated; R94.31 Abnormal electrocardiogram [ECG] [EKG]; F10.10 Alcohol abuse, uncomplicated; R10.9 Unspecified abdominal pain; D68.59 Other primary thrombophilia
CPT/HCPCS: 36415; 70450-TC; 71045-TC-FY; 74019-TC-FY; 76700-TC; 76942-TC; 80048; 80053; 82040; 82140; 82150; 82465; 82550; 82553; 82945; 83605; 83615; 83690; 83735; 84100; 84157; 84478; 84484; 85025; 85027; 85610; 85730; 86704; 86706; 86707; 86708; 86709; 87070; 87075; 87102; 87116; 87205; 87206; 87210; 87340; 88108; 88305-TC; 93005; 93010; 97116-GP; 97161-GP; 99285-25; J7030

== ENCOUNTER 2021-07-26 21:25 | Inpatient (IN) | payer OTHER ==
[2021-07-26 21:51] VITALS: BMI 39.0
[2021-07-26] MEDS ORDERED: MAGNESIUM CITRATE 300 ML BOTTLE PO PRN (22:59)
[2021-07-26] MEDS ORDERED: MAGNESIUM HYDROX 2400MG/30ML ORAL SUSPENSION 30 ML CUP PO PRN (22:59)
[2021-07-26] MEDS ORDERED: chlordiazePOXIDE HCL 25 MG CAPSULE PO PRN (22:59)
[2021-07-26] MEDS ORDERED: MAG HYDROX/AL HYDROX/SIMETH 30 ML UNIT-DOSE CUP PO PRN (22:59)
[2021-07-26] MEDS ORDERED: LOPERAMIDE HCL 2 MG CAPSULE PO PRN (22:59)
[2021-07-26] MEDS ORDERED: MENTHOL/PHENOL 1 EACH UD MM PRN (22:59)
[2021-07-26] MEDS ORDERED: ONDANSETRON *ODT* 4 MG TABLET SL PRN (22:59)
[2021-07-26] MEDS ORDERED: IBUPROFEN 400 MG TABLET (FP) PO PRN (22:59)
[2021-07-26] MEDS ORDERED: ACETAMINOPHEN 325 MG TABLET (FP) PO PRN ×2 (22:59)
[2021-07-26] MEDS ORDERED: BISMUTH SUBSALICYLATE 524 MG/30 ML PO PRN (22:59)
[2021-07-26] MEDS ORDERED: cloNIDine HCL 0.1 MG TABLET PO ONE (23:13)
[2021-07-27] MEDS: chlordiazePOXIDE HCL 25 MG CAPSULE PO SCH ×5 (00:12→22:46)
[2021-07-27] MEDS: ALBUTEROL SO4 HFA INHALER IH PRN ×2 (07:02→11:01)
[2021-07-27] MEDS ORDERED: FUROSEMIDE 20 MG TABLET (FP) PO SCH (10:00)
[2021-07-27] MEDS: METHOCARBAMOL 500 MG TABLET PO PRN ×2 (11:00→18:15)
[2021-07-27] MEDS: SPIRONOLACTONE 25 MG TABLET PO SCH (11:00)
[2021-07-27] MEDS: hydrOXYzine PAMOATE 25 MG CAPSULE (FP) PO SCH ×4 (11:00→22:46)
[2021-07-27] MEDS: PRENATAL VITAMINS W/ FOLIC ACID TABLET (FP) PO SCH (11:01)
[2021-07-27] MEDS: CITALOPRAM HYDROBROMIDE 20 MG TABLET PO SCH (11:03)
[2021-07-27 11:36] LABS: HEMATOCRIT 35.1 % (32.4-45.2); HEMOGLOBIN 12.1 GM/dL (10.7-15.3); MCH 35.1 pg (25.7-33.7); MCHC 34.6 g/dl (32.0-36.0); MEAN CELL VOLUME 101.3 fl (80-96); MEAN PLT VOLUME 9.1 fl (7.5-11.1); PLATELET COUNT 135 10^3/uL (134-434); RBC 3.46 M/mm3 (3.60-5.2); RDW 13.7 % (11.6-15.6); WHITE BLOOD COUNT 8.1 K/mm3 (4.0-10.0)
[2021-07-27] MEDS: HALOPERIDOL 5 MG TABLET PO SCH (11:41)
[2021-07-27 11:51] LABS: CALCIUM 8.1 mg/dL (8.5-10.1)
[2021-07-27 11:52] LABS: ALBUMIN 2.9 g/dl (3.4-5.0); BLOOD UREA NITROGEN 4.4 mg/dL (7-18)
[2021-07-27 11:55] LABS: BILIRUBIN,TOTAL 2.3 mg/dL (0.2-1); CREATININE 0.7 mg/dL (0.55-1.3); TOT PROT 8.9 g/dl (6.4-8.2)
[2021-07-27] MEDS: MAGNESIUM OXIDE 400 MG TABLET (FP) PO SCH ×2 (13:57→23:35)
[2021-07-27] MEDS: LACTULOSE 20 GM/30 ML UDC (FOR ORAL USE ONLY) PO SCH ×4 (13:57→23:43)
[2021-07-27] MEDS: RIFAXIMIN 550 MG TABLET PO SCH ×2 (13:57→23:35)
[2021-07-27] MEDS: FUROSEMIDE 20 MG TABLET (FP) PO SCH (13:59)
[2021-07-27] MEDS: MELATONIN 5 MG TABLETS PO PRN ×2 (22:46→23:35)
[2021-07-27] MEDS: THIAMINE HCL 100 MG TABLET (FP) PO SCH (22:46)
[2021-07-27] MEDS: QUEtiapine FUMARATE 100 MG TABLET (FP) PO SCH (23:35)
[2021-07-28] MEDS: chlordiazePOXIDE HCL 25 MG CAPSULE PO SCH ×2 (06:20→11:02)
[2021-07-28] MEDS: FUROSEMIDE 20 MG TABLET (FP) PO SCH (11:00)
[2021-07-28] MEDS: CITALOPRAM HYDROBROMIDE 20 MG TABLET PO SCH (11:00)
[2021-07-28] MEDS: METHOCARBAMOL 500 MG TABLET PO PRN (11:00)
[2021-07-28] MEDS: PRENATAL VITAMINS W/ FOLIC ACID TABLET (FP) PO SCH (11:00)
[2021-07-28] MEDS: SPIRONOLACTONE 25 MG TABLET PO SCH (11:00)
[2021-07-28] MEDS: MAGNESIUM OXIDE 400 MG TABLET (FP) PO SCH ×2 (11:01→22:57)
[2021-07-28] MEDS: RIFAXIMIN 550 MG TABLET PO SCH ×2 (11:01→22:58)
[2021-07-28] MEDS: HALOPERIDOL 5 MG TABLET PO SCH (11:01)
[2021-07-28] MEDS: LACTULOSE 20 GM/30 ML UDC (FOR ORAL USE ONLY) PO SCH ×4 (11:02→22:56)
[2021-07-28] MEDS: hydrOXYzine PAMOATE 25 MG CAPSULE (FP) PO SCH ×4 (11:02→22:56)
[2021-07-28] MEDS ORDERED: POTASSIUM CHLORIDE ORAL LIQUID 20 MEQ/15 ML PO ONE (16:31)
[2021-07-28] MEDS ORDERED: LORazepam 0.5 MG TABLET PO PRN (16:46)
[2021-07-28] MEDS: LORazepam 0.5 MG TABLET PO SCH ×2 (18:14→22:57)
[2021-07-28] MEDS: amLODIPine BESYLATE 5 MG TABLET (FP) PO SCH (18:14)
[2021-07-28] MEDS: THIAMINE HCL 100 MG TABLET (FP) PO SCH (22:56)
[2021-07-28] MEDS: MELATONIN 5 MG TABLETS PO PRN (22:56)
[2021-07-28] MEDS: QUEtiapine FUMARATE 100 MG TABLET (FP) PO SCH (22:57)
[2021-07-29] MEDS ORDERED: chlordiazePOXIDE HCL 10 MG CAPSULE PO PRN
[2021-07-29] MEDS ORDERED: chlordiazePOXIDE HCL 10 MG CAPSULE PO SCH (05:00)
[2021-07-29] MEDS: LORazepam 0.5 MG TABLET PO SCH ×3 (06:03→22:04)
[2021-07-29] MEDS: LACTULOSE 20 GM/30 ML UDC (FOR ORAL USE ONLY) PO SCH ×4 (10:25→22:05)
[2021-07-29] MEDS: RIFAXIMIN 550 MG TABLET PO SCH ×2 (10:26→22:04)
[2021-07-29] MEDS: HALOPERIDOL 5 MG TABLET PO SCH (10:26)
[2021-07-29] MEDS: amLODIPine BESYLATE 5 MG TABLET (FP) PO SCH (10:27)
[2021-07-29] MEDS: PRENATAL VITAMINS W/ FOLIC ACID TABLET (FP) PO SCH (10:27)
[2021-07-29] MEDS: hydrOXYzine PAMOATE 25 MG CAPSULE (FP) PO SCH ×4 (10:27→22:03)
[2021-07-29] MEDS: SPIRONOLACTONE 25 MG TABLET PO SCH (10:27)
[2021-07-29] MEDS: MAGNESIUM OXIDE 400 MG TABLET (FP) PO SCH ×2 (10:27→22:04)
[2021-07-29] MEDS: CITALOPRAM HYDROBROMIDE 20 MG TABLET PO SCH (10:27)
[2021-07-29] MEDS: FUROSEMIDE 20 MG TABLET (FP) PO SCH (10:27)
[2021-07-29] MEDS: METHOCARBAMOL 500 MG TABLET PO PRN (10:27)
[2021-07-29] MEDS: ALBUTEROL SO4 HFA INHALER IH PRN ×2 (10:29→22:05)
[2021-07-29 17:50] LABS: BILIRUBIN,DIRECT 1.2 mg/dL (0.0-0.2)
[2021-07-29 17:52] LABS: BILIRUBIN,TOTAL 1.9 mg/dL (0.2-1)
[2021-07-29] MEDS: THIAMINE HCL 100 MG TABLET (FP) PO SCH (22:03)
[2021-07-29] MEDS: MELATONIN 5 MG TABLETS PO PRN (22:03)
[2021-07-29] MEDS: QUEtiapine FUMARATE 100 MG TABLET (FP) PO SCH (22:04)
[2021-07-30] MEDS ORDERED: chlordiazePOXIDE HCL 10 MG CAPSULE PO SCH (05:00)
[2021-07-30] MEDS: LORazepam 0.5 MG TABLET PO SCH ×2 (06:06→17:40)
[2021-07-30] MEDS: PRENATAL VITAMINS W/ FOLIC ACID TABLET (FP) PO SCH (10:39)
[2021-07-30] MEDS: RIFAXIMIN 550 MG TABLET PO SCH ×2 (10:39→23:07)
[2021-07-30] MEDS: FUROSEMIDE 20 MG TABLET (FP) PO SCH (10:40)
[2021-07-30] MEDS: hydrOXYzine PAMOATE 25 MG CAPSULE (FP) PO SCH ×4 (10:40→23:06)
[2021-07-30] MEDS: HALOPERIDOL 5 MG TABLET PO SCH (10:40)
[2021-07-30] MEDS: SPIRONOLACTONE 25 MG TABLET PO SCH (10:40)
[2021-07-30] MEDS: METHOCARBAMOL 500 MG TABLET PO PRN (10:40)
[2021-07-30] MEDS: CITALOPRAM HYDROBROMIDE 20 MG TABLET PO SCH (10:40)
[2021-07-30] MEDS: amLODIPine BESYLATE 5 MG TABLET (FP) PO SCH (10:41)
[2021-07-30] MEDS: LACTULOSE 20 GM/30 ML UDC (FOR ORAL USE ONLY) PO SCH ×4 (10:41→23:06)
[2021-07-30] MEDS: MAGNESIUM OXIDE 400 MG TABLET (FP) PO SCH ×2 (11:44→23:06)
[2021-07-30] MEDS: QUEtiapine FUMARATE 100 MG TABLET (FP) PO SCH (23:06)
[2021-07-30] MEDS: THIAMINE HCL 100 MG TABLET (FP) PO SCH (23:07)
[2021-07-31] MEDS ORDERED: chlordiazePOXIDE HCL 10 MG CAPSULE PO ONE (05:00)
[2021-07-31] MEDS ORDERED: LORazepam 0.5 MG TABLET PO ONE (05:00)
[2021-07-31 06:07] VITALS: BP 138/80; PULSE 75; TEMP 97.6
[2021-07-31] MEDS: PRENATAL VITAMINS W/ FOLIC ACID TABLET (FP) PO SCH (09:41)
[2021-07-31] MEDS: SPIRONOLACTONE 25 MG TABLET PO SCH (09:41)
[2021-07-31] MEDS: HALOPERIDOL 5 MG TABLET PO SCH (09:42)
[2021-07-31] MEDS: MAGNESIUM OXIDE 400 MG TABLET (FP) PO SCH (09:42)
[2021-07-31] MEDS: hydrOXYzine PAMOATE 25 MG CAPSULE (FP) PO SCH (09:42)
[2021-07-31] MEDS: FUROSEMIDE 20 MG TABLET (FP) PO SCH (09:42)
[2021-07-31] MEDS: CITALOPRAM HYDROBROMIDE 20 MG TABLET PO SCH (09:42)
[2021-07-31] MEDS: RIFAXIMIN 550 MG TABLET PO SCH (09:43)
[2021-07-31] MEDS: LACTULOSE 20 GM/30 ML UDC (FOR ORAL USE ONLY) PO SCH (09:45)
[2021-07-31] MEDS ORDERED: amLODIPine BESYLATE 10 MG TABLET (FP) PO SCH (10:00)
== END 2021-07-31 09:54 | disposition home or self-care (01) | DRG 775 ==
LOC: YASAS 21:25 → Y6N 22:56
PROVIDERS: ADMIT Allergy & Immunology; ATTEND Allergy & Immunology
PROC: HZ2ZZZZ Detoxification Services for Substance Abuse Treatment (ICD-10-PCS; principal; 2021-07-26)
DX: F10.230 Alcohol dependence with withdrawal, uncomplicated (principal); F10.282 Alcohol dependence with alcohol-induced sleep disorder; F25.9 Schizoaffective disorder, unspecified; I10 Essential (primary) hypertension; J45.909 Unspecified asthma, uncomplicated; K70.30 Alcoholic cirrhosis of liver without ascites; K80.20 Calculus of gallbladder without cholecystitis without obstruction; R79.89 Other specified abnormal findings of blood chemistry; E66.9 Obesity, unspecified; Z68.39 Body mass index [BMI] 39.0-39.9, adult; Z87.891 Personal history of nicotine dependence
CPT/HCPCS: 36415; 74177-TC; 76705-TC; 80053; 81003; 82140; 82247; 82248; 82962; 83690; 84450; 84703; 85025; 85027; 85610; 86780; 87086; 93005; 93010; 99285-25; C9803; J0735; Q9967; U0003; U0005

== ENCOUNTER 2022-04-12 09:55 | Inpatient (IN) | payer OTHER ==
[2022-04-12] MEDS ORDERED: THIAMINE HCL 200 MG/2 ML VIAL IVPB ONE ×3 (11:41→12:26)
[2022-04-12 12:43] LABS: VENOUS BASE EXCESS 1.2 mmol/L (-2-2); VENOUS O2 SATURATION 31.3 % (70-80); VENOUS PCO2 51.4 mmHg (38-52); VENOUS PH 7.35 (7.310-7.410)
[2022-04-12 12:47] LABS: BASO % 1.1 % (0-2.0); EOS % 3.2 % (0-4.5); HEMOGLOBIN 13.7 GM/dL (10.7-15.3); LYMPH % 26.6 % (8-40); MCH 34.5 pg (25.7-33.7); MCHC 33.3 g/dl (32.0-36.0); MEAN CELL VOLUME 103.4 fl (80-96); MEAN PLT VOLUME 9.8 fl (7.5-11.1); MONO % 9.4 % (3.8-10.2); NEUT % 59.7 % (42.8-82.8); PLATELET COUNT 133 10^3/uL (134-434); RBC 3.97 M/mm3 (3.60-5.2); RDW 12.7 % (11.6-15.6)
[2022-04-12 12:48] LABS: EPI CELLS >36 /uL (0-25.1); HYALINE CASTS 2 /uL (0-3.1); PH,URINE 5.5 (5.0-8.0); URINE APPEARANCE CLEAR; URINE BACTERIA 534 /uL (0-1359); URINE BILIRUBIN NEGATIVE (NEGATIVE); URINE COLOR DK YELLOW; URINE GLUCOSE (UA) NEGATIVE (NEGATIVE); URINE KETONE TRACE (NEGATIVE); URINE LEUK ESTERASE TRACE (NEGATIVE); URINE NITRITE NEGATIVE (NEGATIVE); URINE PROTEIN NEGATIVE (NEGATIVE); URINE RBC 7 /uL (0-23.9); URINE UROBILINOGEN 0.2 mg/dL (0.2-1.0); URINE WBC 12 /uL (0-25.8)
[2022-04-12] MEDS ORDERED: THIAMINE HCL 200 MG/2 ML VIAL ONE (12:50)
[2022-04-12 12:52] LABS: INR 1.43 (0.83-1.09); PROTHROMBIN TIME (PATIENT) 16.5 SEC (9.7-13.0)
[2022-04-12 12:54] LABS: ACTIVATED PTT 36.7 SECONDS (25.2-36.5); METHADONE, UR NEGATIVE (NEGATIVE); OPIATES, URI NEGATIVE (NEGATIVE); PHENCYCLIDINE,URINE NEGATIVE (NEGATIVE); URINE BARBITURATES NEGATIVE (NEGATIVE)
[2022-04-12 14:55] LABS: COCAINE, UR NEGATIVE (NEGATIVE); URINE BENZODIAZEPINES POSITIVE (NEGATIVE)
[2022-04-12 14:58] LABS: URINE AMPHETAMINES NEGATIVE (NEGATIVE)
[2022-04-12 15:01] LABS: ALBUMIN 2.5 g/dl (3.4-5.0); ALK PHOS 185 U/L (45-117); ANION GAP 6 MMOL/L (8-16); CALCIUM 8.9 mg/dL (8.5-10.1); CHLORIDE 105 mmol/L (98-107); CO2 27 mmol/L (21-32); GLUCOSE,RANDOM 139 mg/dL (74-106); MAGNESIUM 1.5 mg/dL (1.8-2.4); SGOT/AST 153 U/L (15-37); SGPT/ALT 118 U/L (13-61); SODIUM 138 mmol/L (136-145); TOT PROT 8.8 g/dl (6.4-8.2)
[2022-04-12 15:04] LABS: CREATININE 0.9 mg/dL (0.55-1.3)
[2022-04-12] MEDS ORDERED: MAGNESIUM SULF 50% (8.12 MEQ/2 ML-1 GM VIAL) IVPB ONE (15:47)
[2022-04-12] MEDS ORDERED: MAGNESIUM 1GM/D5W - 1 GM/100 ML IVPB IVPB ONE (17:08)
[2022-04-12] MEDS ORDERED: HALOPERIDOL LACTATE 5 MG/ML IM ONE ×3 (17:23→17:29)
[2022-04-12] MEDS ORDERED: LORazepam 2 MG/ML SDV VIAL IVPUSH ONE (17:24)
[2022-04-12] MEDS ORDERED: LORazepam 1 MG TABLET PO PRN (18:15)
[2022-04-12] MEDS: LORazepam 1 MG TABLET PO SCH ×2 (19:04→22:42)
[2022-04-12] MEDS ORDERED: CEFTRIAXONE 1 GM/50 ML BAG ONE (20:50)
[2022-04-12] MEDS: CEFTRIAXONE 1 GM in DEXTROSE 5%-WATER - 50 ML IVPB SCH (20:51)
[2022-04-13 01:42] VITALS: BMI 28.8
[2022-04-13] MEDS: LORazepam 1 MG TABLET PO SCH ×4 (06:10→22:15)
[2022-04-13] MEDS ORDERED: LEVOTHYROXINE NA 25 MCG TABLET (FP) PO SCH (07:00)
[2022-04-13] MEDS: CITALOPRAM HYDROBROMIDE 20 MG TABLET PO SCH (09:23)
[2022-04-13] MEDS: FOLIC ACID 1 MG TABLET (FP) PO SCH (09:23)
[2022-04-13] MEDS: THIAMINE HCL 200 MG/2 ML VIAL IVPB SCH (09:26)
[2022-04-13 09:27] LABS: BASO % 0.9 % (0-2.0); EOS % 4.1 % (0-4.5); HEMATOCRIT 40.4 % (32.4-45.2); HEMOGLOBIN 13.6 GM/dL (10.7-15.3); LYMPH % 23.8 % (8-40); MCH 34.4 pg (25.7-33.7); MCHC 33.6 g/dl (32.0-36.0); MEAN CELL VOLUME 102.5 fl (80-96); MEAN PLT VOLUME 9.7 fl (7.5-11.1); MONO % 9.4 % (3.8-10.2); NEUT % 61.8 % (42.8-82.8); PLATELET COUNT 121 10^3/uL (134-434); RBC 3.94 M/mm3 (3.60-5.2); RDW 12.6 % (11.6-15.6); WHITE BLOOD COUNT 6.3 K/mm3 (4.0-10.0)
[2022-04-13 09:42] LABS: CALCIUM 8.2 mg/dL (8.5-10.1)
[2022-04-13 09:43] LABS: ALBUMIN 2.3 g/dl (3.4-5.0); BLOOD UREA NITROGEN 8.9 mg/dL (7-18); MAGNESIUM 1.7 mg/dL (1.8-2.4)
[2022-04-13 09:46] LABS: CREATININE 0.7 mg/dL (0.55-1.3)
[2022-04-13] MEDS: CEFTRIAXONE 1 GM in DEXTROSE 5%-WATER - 50 ML IVPB SCH (10:49)
[2022-04-13] MEDS ORDERED: LACTULOSE 20 GM/30 ML UDC (FOR ORAL USE ONLY) PO PRN (16:54)
[2022-04-13] MEDS: RIFAXIMIN 550 MG TABLET PO SCH (21:29)
[2022-04-13 22:10] VITALS: RESP 18
[2022-04-14] MEDS: LORazepam 1 MG TABLET PO SCH ×2 (05:27→11:34)
[2022-04-14] MEDS: CITALOPRAM HYDROBROMIDE 20 MG TABLET PO SCH (09:30)
[2022-04-14] MEDS: RIFAXIMIN 550 MG TABLET PO SCH (09:30)
[2022-04-14] MEDS: THIAMINE HCL 200 MG/2 ML VIAL IVPB SCH (09:30)
[2022-04-14] MEDS: FOLIC ACID 1 MG TABLET (FP) PO SCH (09:30)
[2022-04-14 15:09] VITALS: BP 153/88; PULSE 80; TEMP 98.2
[2022-04-15] MEDS ORDERED: LORazepam 0.5 MG TABLET PO PRN
[2022-04-15] MEDS ORDERED: LORazepam 0.5 MG TABLET PO SCH (05:00)
[2022-04-16] MEDS ORDERED: LORazepam 0.5 MG TABLET PO ONE (05:00)
[2022-04-17 00:07] LABS: FIBROSIS SCORE. 0.77 (0.00-0.21); HCV ALPHA 2 MACRO CHART 207 mg/dL (110-276); NECRO.INFLAM ACT.SCORE 0.77 (0.00-0.17); NECROINFLAM. ACTIVITY GRADE A3-Severe activity (.)
== END 2022-04-14 17:18 | disposition other institution (70) | DRG 280 ==
LOC: JER 09:55 → JERBED 16:49 → J6S 04-13 01:21
PROVIDERS: ADMIT Internal Medicine; ATTEND Internal Medicine
DX: K70.30 Alcoholic cirrhosis of liver without ascites (principal); G93.49 Other encephalopathy; I10 Essential (primary) hypertension; F41.8 Other specified anxiety disorders; F10.20 Alcohol dependence, uncomplicated; N39.0 Urinary tract infection, site not specified; W18.30XA Fall on same level, unspecified, initial encounter; Y93.89 Activity, other specified; Y92.230 Patient room in hospital as the place of occurrence of the external cause; Y99.8 Other external cause status; K80.20 Calculus of gallbladder without cholecystitis without obstruction; R41.3 Other amnesia; R79.89 Other specified abnormal findings of blood chemistry
CPT/HCPCS: 0241U-QW; 36415; 70450-TC; 71045-TC-FY; 74177-TC; 80053; 80307; 81003; 82140; 82172; 82803; 82962; 82977; 83010; 83605; 83735; 83883; 84439; 84443; 84460; 84484; 85025; 85610; 85730; 86705; 86708; 87086; 87517; 93005; 93010; 99285-25

== ENCOUNTER 2022-04-17 13:27 | Inpatient (IN) | payer OTHER ==
[2022-04-17 15:11] LABS: BASO % 1.3 % (0-2.0); EOS % 0.7 % (0-4.5); HEMATOCRIT 40.9 % (32.4-45.2); HEMOGLOBIN 13.8 GM/dL (10.7-15.3); LYMPH % 23.8 % (8-40); MCH 34.1 pg (25.7-33.7); MCHC 33.7 g/dl (32.0-36.0); MEAN CELL VOLUME 101.3 fl (80-96); MEAN PLT VOLUME 9.8 fl (7.5-11.1); MONO % 9.1 % (3.8-10.2); NEUT % 65.1 % (42.8-82.8); PLATELET COUNT 159 10^3/uL (134-434); RBC 4.04 M/mm3 (3.60-5.2); RDW 12.4 % (11.6-15.6); WHITE BLOOD COUNT 7.5 K/mm3 (4.0-10.0)
[2022-04-17 15:23] LABS: INR 1.46 (0.83-1.09); PROTHROMBIN TIME (PATIENT) 16.8 SEC (9.7-13.0)
[2022-04-17 15:26] LABS: ACTIVATED PTT 31.3 SECONDS (25.2-36.5)
[2022-04-17 15:29] LABS: CHLORIDE 102 mmol/L (98-107); SODIUM 136 mmol/L (136-145)
[2022-04-17 15:34] LABS: ALBUMIN 2.7 g/dl (3.4-5.0); ANION GAP 8 MMOL/L (8-16); BLOOD UREA NITROGEN 9.3 mg/dL (7-18); CALCIUM 8.8 mg/dL (8.5-10.1); CO2 26 mmol/L (21-32); GLUCOSE,RANDOM 103 mg/dL (74-106); MAGNESIUM 1.5 mg/dL (1.8-2.4)
[2022-04-17 15:37] LABS: CREATININE 0.8 mg/dL (0.55-1.3); PHOSPHOROUS 2.4 mg/dL (2.5-4.9); SGOT/AST 180 U/L (15-37); SGPT/ALT 143 U/L (13-61)
[2022-04-17 15:38] LABS: BILIRUBIN,TOTAL 1.2 mg/dL (0.2-1); TOT PROT 8.9 g/dl (6.4-8.2)
[2022-04-17 15:41] LABS: ALK PHOS 183 U/L (45-117)
[2022-04-17 17:38] LABS: ALBUMIN 2.7 g/dl (3.4-5.0); BLOOD UREA NITROGEN 8.5 mg/dL (7-18); CALCIUM 8.4 mg/dL (8.5-10.1); MAGNESIUM 1.5 mg/dL (1.8-2.4)
[2022-04-17 17:40] LABS: CREATININE 0.7 mg/dL (0.55-1.3)
[2022-04-17 17:43] LABS: BILIRUBIN,TOTAL 1.2 mg/dL (0.2-1); TOT PROT 8.7 g/dl (6.4-8.2)
[2022-04-17] MEDS ORDERED: MAGNESIUM SULF 50% (8.12 MEQ/2 ML-1 GM VIAL) IVPB ONE ×2 (18:35→21:00)
[2022-04-17] MEDS ORDERED: MAGNESIUM 1GM/D5W - 1 GM/100 ML IVPB IVPB ONE (18:45)
[2022-04-17 20:22] LABS: PH,URINE 8.5 (5.0-8.0); URINE APPEARANCE Error; URINE BILIRUBIN NEGATIVE (NEGATIVE); URINE COLOR YELLOW; URINE GLUCOSE (UA) NEGATIVE (NEGATIVE); URINE KETONE TRACE (NEGATIVE); URINE LEUK ESTERASE NEGATIVE (NEGATIVE); URINE NITRITE NEGATIVE (NEGATIVE); URINE PROTEIN NEGATIVE (NEGATIVE)
[2022-04-17 20:30] LABS: COCAINE, UR NEGATIVE (NEGATIVE); METHADONE, UR NEGATIVE (NEGATIVE); OPIATES, URI NEGATIVE (NEGATIVE); PHENCYCLIDINE,URINE NEGATIVE (NEGATIVE); URINE BARBITURATES NEGATIVE (NEGATIVE)
[2022-04-17 20:37] LABS: URINE AMPHETAMINES NEGATIVE (NEGATIVE); URINE BENZODIAZEPINES POSITIVE (NEGATIVE)
[2022-04-17] MEDS ORDERED: POTASSIUM PHOSPHATE 10 MM in SODIUM CHLORIDE 250 ML IVPB ONE (20:57)
[2022-04-17] MEDS ORDERED: FOLIC ACID INJECTION - 1 MG, THIAMINE HCL 100 MG, MULTIVIT INJECTION ADULT 10 ML in SOD... IVPB ONE (21:00)
[2022-04-17] MEDS ORDERED: LORazepam 2 MG/ML SDV VIAL IVPUSH PRN (21:00)
[2022-04-17 21:31] VITALS: BMI 32.8
[2022-04-18 09:00] LABS: EOS % 2.5 % (0-4.5); HEMATOCRIT 40.1 % (32.4-45.2); HEMOGLOBIN 13.7 GM/dL (10.7-15.3); LYMPH % 28.1 % (8-40); MCH 34.6 pg (25.7-33.7); MCHC 34.2 g/dl (32.0-36.0); MEAN CELL VOLUME 101.3 fl (80-96); MEAN PLT VOLUME 9.2 fl (7.5-11.1); MONO % 8.8 % (3.8-10.2); NEUT % 59.6 % (42.8-82.8); PLATELET COUNT 143 10^3/uL (134-434); RBC 3.96 M/mm3 (3.60-5.2); RDW 12.5 % (11.6-15.6); WHITE BLOOD COUNT 8.4 K/mm3 (4.0-10.0)
[2022-04-18 09:48] LABS: ALBUMIN 2.6 g/dl (3.4-5.0); BLOOD UREA NITROGEN 6.8 mg/dL (7-18); CALCIUM 8.1 mg/dL (8.5-10.1); MAGNESIUM 1.7 mg/dL (1.8-2.4)
[2022-04-18 09:50] LABS: CREATININE 0.7 mg/dL (0.55-1.3); PHOSPHOROUS 3.4 mg/dL (2.5-4.9)
[2022-04-18 09:52] LABS: BILIRUBIN,TOTAL 1.3 mg/dL (0.2-1); TOT PROT 8.7 g/dl (6.4-8.2)
[2022-04-18] MEDS ORDERED: PATIENT'S OWN MEDICATION (NON-FORMULARY) (Spironolactone [Aldactone] 50 MG Tablet) PO SCH (10:00)
[2022-04-18] MEDS ORDERED: THIAMINE HCL 200 MG/2 ML VIAL IM SCH (10:00)
[2022-04-18] MEDS: ENOXAPARIN NA (PORCINE) 40 MG/0.4 ML DISP.SYRIN SQ SCH (11:07)
[2022-04-18] MEDS: FOLIC ACID 1 MG TABLET (FP) PO SCH (11:07)
[2022-04-18] MEDS: SPIRONOLACTONE 25 MG TABLET PO SCH (11:07)
[2022-04-18] MEDS: RIFAXIMIN 550 MG TABLET PO SCH ×2 (11:08→22:32)
[2022-04-18] MEDS: MULTIVITAMINS (DAILY MVI) TABLET (FP) PO SCH (11:08)
[2022-04-18] MEDS: LEVOTHYROXINE NA 50 MCG TABLET (FP) PO SCH (12:53)
[2022-04-18] MEDS: LACTULOSE 20 GM/30 ML UDC (FOR ORAL USE ONLY) PO SCH ×2 (12:53→22:32)
[2022-04-18] MEDS ORDERED: MAGNESIUM SULF 50% (8.12 MEQ/2 ML-1 GM VIAL) IVPB ONE (14:19)
[2022-04-18] MEDS ORDERED: LOSARTAN POTASSIUM 50 MG TABLET PO ONE (15:26)
[2022-04-18] MEDS ORDERED: LABETALOL HCL 5 MG/1 ML (100MG/20 ML VIAL) IVPUSH ONE (17:05)
[2022-04-18] MEDS: THIAMINE HCL 200 MG/2 ML VIAL IVPB SCH (19:02)
[2022-04-18] MEDS ORDERED: QUEtiapine FUMARATE 50 MG TABLET ONE (21:37)
[2022-04-18] MEDS: QUEtiapine FUMARATE 100 MG TABLET (FP) PO SCH (22:33)
[2022-04-19] MEDS: THIAMINE HCL 200 MG/2 ML VIAL IVPB SCH ×3 (02:25→20:11)
[2022-04-19] MEDS: LEVOTHYROXINE NA 50 MCG TABLET (FP) PO SCH (06:03)
[2022-04-19] MEDS ORDERED: LEVOTHYROXINE NA 50 MCG TABLET (FP) PO SCH (07:00)
[2022-04-19 08:23] LABS: HEMATOCRIT 37.9 % (32.4-45.2); HEMOGLOBIN 12.8 GM/dL (10.7-15.3); MCH 34.2 pg (25.7-33.7); MCHC 33.7 g/dl (32.0-36.0); MEAN CELL VOLUME 101.5 fl (80-96); MEAN PLT VOLUME 9.4 fl (7.5-11.1); PLATELET COUNT 119 10^3/uL (134-434); RBC 3.74 M/mm3 (3.60-5.2); RDW 12.2 % (11.6-15.6); WHITE BLOOD COUNT 6.4 K/mm3 (4.0-10.0)
[2022-04-19 08:57] LABS: ALBUMIN 2.3 g/dl (3.4-5.0); BLOOD UREA NITROGEN 5.6 mg/dL (7-18)
[2022-04-19 09:00] LABS: CREATININE 0.7 mg/dL (0.55-1.3)
[2022-04-19 09:02] LABS: BILIRUBIN,TOTAL 0.8 mg/dL (0.2-1); TOT PROT 7.6 g/dl (6.4-8.2)
[2022-04-19] MEDS: MULTIVITAMINS (DAILY MVI) TABLET (FP) PO SCH (09:09)
[2022-04-19] MEDS: FOLIC ACID 1 MG TABLET (FP) PO SCH (09:09)
[2022-04-19] MEDS: SPIRONOLACTONE 25 MG TABLET PO SCH (09:09)
[2022-04-19] MEDS: RIFAXIMIN 550 MG TABLET PO SCH ×2 (09:09→22:41)
[2022-04-19] MEDS: LACTULOSE 20 GM/30 ML UDC (FOR ORAL USE ONLY) PO SCH ×2 (09:09→22:41)
[2022-04-19] MEDS: ENOXAPARIN NA (PORCINE) 40 MG/0.4 ML DISP.SYRIN SQ SCH (09:10)
[2022-04-19] MEDS: POTASSIUM CHLORIDE TABS 20 MEQ TABLET.ER (FP) PO SCH (12:23)
[2022-04-19] MEDS: HALOPERIDOL 5 MG TABLET PO SCH (20:11)
[2022-04-19] MEDS ORDERED: QUEtiapine FUMARATE 50 MG TABLET ONE (22:35)
[2022-04-19] MEDS: QUEtiapine FUMARATE 100 MG TABLET (FP) PO SCH (22:41)
[2022-04-20] MEDS: THIAMINE HCL 200 MG/2 ML VIAL IVPB SCH ×3 (00:47→17:47)
[2022-04-20] MEDS: LEVOTHYROXINE NA 50 MCG TABLET (FP) PO SCH (06:12)
[2022-04-20] MEDS: RIFAXIMIN 550 MG TABLET PO SCH ×2 (09:02→21:15)
[2022-04-20] MEDS: MULTIVITAMINS (DAILY MVI) TABLET (FP) PO SCH (09:02)
[2022-04-20] MEDS: ENOXAPARIN NA (PORCINE) 40 MG/0.4 ML DISP.SYRIN SQ SCH (09:02)
[2022-04-20] MEDS: HALOPERIDOL 5 MG TABLET PO SCH (09:03)
[2022-04-20] MEDS: POTASSIUM CHLORIDE TABS 20 MEQ TABLET.ER (FP) PO SCH (09:03)
[2022-04-20] MEDS: FOLIC ACID 1 MG TABLET (FP) PO SCH (09:03)
[2022-04-20] MEDS: SPIRONOLACTONE 25 MG TABLET PO SCH (09:03)
[2022-04-20] MEDS: LACTULOSE 20 GM/30 ML UDC (FOR ORAL USE ONLY) PO SCH ×2 (09:04→21:16)
[2022-04-20 09:21] LABS: BASO % 0.9 % (0-2.0); EOS % 4.3 % (0-4.5); HEMATOCRIT 36.5 % (32.4-45.2); HEMOGLOBIN 12.6 GM/dL (10.7-15.3); LYMPH % 31.3 % (8-40); MCH 35.3 pg (25.7-33.7); MCHC 34.5 g/dl (32.0-36.0); MEAN CELL VOLUME 102.2 fl (80-96); MEAN PLT VOLUME 9.1 fl (7.5-11.1); MONO % 10.8 % (3.8-10.2); NEUT % 52.7 % (42.8-82.8); PLATELET COUNT 106 10^3/uL (134-434); RBC 3.57 M/mm3 (3.60-5.2); RDW 12.4 % (11.6-15.6); WHITE BLOOD COUNT 5.6 K/mm3 (4.0-10.0)
[2022-04-20 09:40] LABS: ALBUMIN 2.2 g/dl (3.4-5.0); BLOOD UREA NITROGEN 5.5 mg/dL (7-18); CALCIUM 8.1 mg/dL (8.5-10.1); MAGNESIUM 1.4 mg/dL (1.8-2.4)
[2022-04-20 09:43] LABS: CREATININE 0.7 mg/dL (0.55-1.3)
[2022-04-20 09:45] LABS: BILIRUBIN,TOTAL 0.6 mg/dL (0.2-1); TOT PROT 7.3 g/dl (6.4-8.2)
[2022-04-20] MEDS ORDERED: MAGNESIUM SULF 50% (8.12 MEQ/2 ML-1 GM VIAL) IVPB ONE ×2 (17:32→19:00)
[2022-04-20] MEDS: QUEtiapine FUMARATE 100 MG TABLET (FP) PO SCH (21:15)
[2022-04-21] MEDS: THIAMINE HCL 200 MG/2 ML VIAL IVPB SCH ×2 (01:49→10:35)
[2022-04-21 04:17] VITALS: RESP 18
[2022-04-21] MEDS: LEVOTHYROXINE NA 50 MCG TABLET (FP) PO SCH (06:27)
[2022-04-21 09:22] LABS: BASO % 1.1 % (0-2.0); EOS % 3.8 % (0-4.5); HEMATOCRIT 38.1 % (32.4-45.2); LYMPH % 31.5 % (8-40); MCH 34.7 pg (25.7-33.7); MCHC 34.1 g/dl (32.0-36.0); MEAN PLT VOLUME 9.4 fl (7.5-11.1); MONO % 9.8 % (3.8-10.2); NEUT % 53.8 % (42.8-82.8); PLATELET COUNT 108 10^3/uL (134-434); RBC 3.74 M/mm3 (3.60-5.2); RDW 12.4 % (11.6-15.6); WHITE BLOOD COUNT 5.9 K/mm3 (4.0-10.0)
[2022-04-21 09:47] LABS: ALBUMIN 2.4 g/dl (3.4-5.0); BLOOD UREA NITROGEN 4.1 mg/dL (7-18)
[2022-04-21 09:52] LABS: MAGNESIUM 1.7 mg/dL (1.8-2.4)
[2022-04-21 09:55] LABS: CREATININE 0.6 mg/dL (0.55-1.3); PHOSPHOROUS 3.6 mg/dL (2.5-4.9)
[2022-04-21 09:56] LABS: BILIRUBIN,TOTAL 0.7 mg/dL (0.2-1); TOT PROT 7.6 g/dl (6.4-8.2)
[2022-04-21] MEDS: ENOXAPARIN NA (PORCINE) 40 MG/0.4 ML DISP.SYRIN SQ SCH (10:34)
[2022-04-21] MEDS: LACTULOSE 20 GM/30 ML UDC (FOR ORAL USE ONLY) PO SCH (10:34)
[2022-04-21] MEDS: RIFAXIMIN 550 MG TABLET PO SCH (10:36)
[2022-04-21] MEDS: FOLIC ACID 1 MG TABLET (FP) PO SCH (10:36)
[2022-04-21] MEDS: MULTIVITAMINS (DAILY MVI) TABLET (FP) PO SCH (10:36)
[2022-04-21] MEDS: HALOPERIDOL 5 MG TABLET PO SCH (10:36)
[2022-04-21] MEDS: SPIRONOLACTONE 25 MG TABLET PO SCH (10:36)
[2022-04-21 14:47] VITALS: BP 145/96; PULSE 91; TEMP 98.1
[2022-04-22] MEDS ORDERED: LEVOTHYROXINE NA 25 MCG TABLET (FP) PO SCH (07:00)
[2022-04-22] MEDS ORDERED: THIAMINE HCL 200 MG/2 ML VIAL IVPB SCH (10:00)
== END 2022-04-21 17:00 | disposition home or self-care (01) | DRG 421 ==
LOC: JER 13:27 → JERBED 18:39 → J7W 20:20
PROVIDERS: ADMIT Internal Medicine; ATTEND Internal Medicine
DX: E51.2 Wernicke's encephalopathy (principal); I10 Essential (primary) hypertension; F41.9 Anxiety disorder, unspecified; F32.A Depression, unspecified; F20.9 Schizophrenia, unspecified; J45.909 Unspecified asthma, uncomplicated; K70.30 Alcoholic cirrhosis of liver without ascites; F10.10 Alcohol abuse, uncomplicated; E83.39 Other disorders of phosphorus metabolism; E83.42 Hypomagnesemia; R74.01 Elevation of levels of liver transaminase levels; E03.9 Hypothyroidism, unspecified
CPT/HCPCS: 0241U-QW; 36415; 70450-TC; 71045-TC-FY; 76705-TC; 80053; 80307; 81003; 82140; 82607; 82746; 83735; 84100; 84439; 84443; 84484; 85025; 85027; 85610; 85730; 87086; 93005; 93010; 97116-GP; 97161-GP; 99285-25

== ENCOUNTER 2023-08-18 14:54 | Emergency (ER) | payer OTHER ==
[2023-08-18 15:03] VITALS: BP 147/78; PULSE 101; RESP 20; TEMP 98.2; BMI 25.7
[2023-08-18] MEDS ORDERED: ACETAMINOPHEN 325 MG TABLET (FP) ONE (15:55)
[2023-08-18] MEDS ORDERED: ALBUTEROL SO4 2.5/IPRATROPIUM 0.5 INH SOL 3 ML VIAL.NEB. NEB ONE (15:56)
[2023-08-18] MEDS ORDERED: DEXAMETHASONE SOD PHOSPHATE 10 MG/1 ML VIAL ONE (15:56)
[2023-08-18] MEDS: DEXAMETHASONE LIQUID 0.5 MG/5 ML PO ONE (16:09)
[2023-08-18] MEDS: ACETAMINOPHEN 500 MG TABLET (FP) PO ONE (16:10)
[2023-08-18] MEDS: ALBUTEROL SO4 2.5/IPRATROPIUM 0.5 INH SOL 3 ML VIAL.NEB. NEB SCH (16:12)
[2023-08-18 16:46] LABS: BASO % 0.5 % (0-2.0); EOS % 0.7 % (0-4.5); HEMATOCRIT 36.4 % (32.4-45.2); HEMOGLOBIN 12.2 GM/dL (10.7-15.3); LYMPH % 13.5 % (8-40); MCH 34.2 pg (25.7-33.7); MCHC 33.5 g/dl (32.0-36.0); MEAN PLT VOLUME 8.1 fl (7.5-11.1); MONO % 10.9 % (3.8-10.2); NEUT % 74.4 % (42.8-82.8); PLATELET COUNT 144 10^3/uL (134-434); RBC 3.57 M/mm3 (3.60-5.2); RDW 15.5 % (11.6-15.6); WHITE BLOOD COUNT 7.8 K/mm3 (4.0-10.0)
[2023-08-18 16:52] LABS: INR 1.31 (0.83-1.09); PROTHROMBIN TIME (PATIENT) 15.2 SEC (9.7-13.0)
[2023-08-18 16:54] LABS: ACTIVATED PTT 30.4 SECONDS (25.2-36.5)
[2023-08-18 17:04] LABS: POTASSIUM 3.2 mmol/L (3.5-5.1)
[2023-08-18 17:06] LABS: BLOOD UREA NITROGEN 4.6 mg/dL (7-18); CALCIUM 8.4 mg/dL (8.5-10.1); MAGNESIUM 1.8 mg/dL (1.8-2.4)
[2023-08-18 17:07] LABS: ALBUMIN 2.9 g/dl (3.4-5.0)
[2023-08-18 17:09] LABS: CREATININE 0.7 mg/dL (0.55-1.3)
[2023-08-18 17:11] LABS: BILIRUBIN,TOTAL 1.1 mg/dL (0.2-1); TOT PROT 8.2 g/dl (6.4-8.2)
[2023-08-18 17:15] LABS: N-TERMINAL BNP 80.7 pg/ml (5-125)
== END 2023-08-18 17:50 | disposition home or self-care (01) ==
LOC: JER 14:54
PROC: 3E0F7GC Introduction of Other Therapeutic Substance into Respiratory Tract, Via Natural or Artificial Opening (ICD-10-PCS; principal; 2023-08-18)
DX: R06.02 Shortness of breath (principal); R09.81 Nasal congestion; R00.0 Tachycardia, unspecified; J45.909 Unspecified asthma, uncomplicated; J10.1 Influenza due to other identified influenza virus with other respiratory manifestations; Z20.822 Contact with and (suspected) exposure to COVID-19
CPT/HCPCS: 0241U-QW; 36415; 71046-TC-FY; 80053; 83735; 83880; 84484; 85025; 85610; 85730; 93005; 93010; 94640; 99285-25

== ENCOUNTER 2023-08-19 19:38 | Observation (INO) | payer OTHER ==
[2023-08-19 19:59] VITALS: BMI 31.8
[2023-08-19] MEDS ORDERED: methylPREDNISolone NA SUCC 125 MG/2 ML VIAL ONE (21:21)
[2023-08-19] MEDS ORDERED: ALBUTEROL SO4 2.5/IPRATROPIUM 0.5 INH SOL 3 ML VIAL.NEB. NEB ONE (21:21)
[2023-08-19] MEDS: ALBUTEROL SO4 2.5/IPRATROPIUM 0.5 INH SOL 3 ML VIAL.NEB. NEB SCH (21:30)
[2023-08-19] MEDS: methylPREDNISolone NA SUCC 125 MG/2 ML VIAL IVPB ONE (21:37)
[2023-08-19 21:48] LABS: BASO % 0.6 % (0-2.0); EOS % 0.1 % (0-4.5); HEMATOCRIT 37.3 % (32.4-45.2); HEMOGLOBIN 12.6 GM/dL (10.7-15.3); LYMPH % 5.2 % (8-40); MCH 34.5 pg (25.7-33.7); MCHC 33.9 g/dl (32.0-36.0); MEAN PLT VOLUME 8.8 fl (7.5-11.1); MONO % 6.4 % (3.8-10.2); NEUT % 87.7 % (42.8-82.8); PLATELET COUNT 178 10^3/uL (134-434); RBC 3.66 M/mm3 (3.60-5.2); RDW 15.6 % (11.6-15.6); WHITE BLOOD COUNT 13.1 K/mm3 (4.0-10.0)
[2023-08-19 22:08] LABS: CHLORIDE 102 mmol/L (98-107); SODIUM 135 mmol/L (136-145)
[2023-08-19 22:11] LABS: CALCIUM 9.1 mg/dL (8.5-10.1)
[2023-08-19 22:12] LABS: ALBUMIN 3.1 g/dl (3.4-5.0); BLOOD UREA NITROGEN 7.3 mg/dL (7-18); CO2 22 mmol/L (21-32); GLUCOSE,RANDOM 169 mg/dL (74-106)
[2023-08-19 22:15] LABS: CREATININE 0.8 mg/dL (0.55-1.3); SGOT/AST 173 U/L (15-37)
[2023-08-19 22:17] LABS: TOT PROT 9.6 g/dl (6.4-8.2)
[2023-08-19 22:18] LABS: ALK PHOS 239 U/L (45-117)
[2023-08-19 22:24] LABS: ANION GAP 11 mmol/L (4-13); POTASSIUM 7.4 mmol/L (3.5-5.1); SGPT/ALT 89 U/L (13-61)
[2023-08-19] MEDS ORDERED: ALBUTEROL SO4 0.083% IH SOL 2.5 MG/3 ML VIAL.NEB. NEB ONE (23:04)
[2023-08-19] MEDS ORDERED: MAGNESIUM SULFATE IN WATER 2 GM/50 ML IVPB IVPB ONE (23:04)
[2023-08-19] MEDS: MAGNESIUM SULF 50% (8.12 MEQ/2 ML-1 GM VIAL) IVPB ONE (23:13)
[2023-08-19] MEDS: ALBUTEROL SO4 0.083% IH SOL 2.5 MG/3 ML VIAL.NEB. NEB SCH (23:13)
[2023-08-20] MEDS ORDERED: ALBUTEROL SO4 0.083% IH SOL 2.5 MG/3 ML VIAL.NEB. NEB ONE ×2 (00:59→11:10)
[2023-08-20 01:06] LABS: POTASSIUM 3.5 mmol/L (3.5-5.1)
[2023-08-20 01:08] LABS: BLOOD UREA NITROGEN 7.7 mg/dL (7-18)
[2023-08-20 01:13] LABS: CREATININE 0.7 mg/dL (0.55-1.3)
[2023-08-20] MEDS ORDERED: OSELTAMIVIR PHOSPHATE 75 MG CAPSULE ONE (05:46)
[2023-08-20] MEDS: methylPREDNISolone NA SUCC 40 MG/1 ML VIAL IVPUSH SCH (05:47)
[2023-08-20] MEDS: OSELTAMIVIR PHOSPHATE 75 MG CAPSULE PO SCH (05:47)
[2023-08-20] MEDS ORDERED: methylPREDNISolone NA SUCC 40 MG/1 ML VIAL ONE ×2 (05:47→09:31)
[2023-08-20 08:13] LABS: BASO % 0.1 % (0-2.0); HEMATOCRIT 35.6 % (32.4-45.2); HEMOGLOBIN 12.4 GM/dL (10.7-15.3); LYMPH % 5.1 % (8-40); MCH 35.8 pg (25.7-33.7); MCHC 34.7 g/dl (32.0-36.0); MEAN PLT VOLUME 8.6 fl (7.5-11.1); NEUT % 89.8 % (42.8-82.8); PLATELET COUNT 157 10^3/uL (134-434); RBC 3.46 M/mm3 (3.60-5.2); RDW 15.3 % (11.6-15.6)
[2023-08-20 08:23] LABS: POTASSIUM 3.6 mmol/L (3.5-5.1)
[2023-08-20 08:34] LABS: BLOOD UREA NITROGEN 9.6 mg/dL (7-18)
[2023-08-20 08:38] LABS: CREATININE 0.8 mg/dL (0.55-1.3)
[2023-08-20] MEDS: ALBUTEROL SO4 0.083% IH SOL 2.5 MG/3 ML VIAL.NEB. NEB PRN (11:50)
[2023-08-20 12:08] VITALS: RESP 20
[2023-08-20 14:56] VITALS: BP 171/93; PULSE 98; TEMP 98.1
[2023-08-20] MEDS ORDERED: ALBUTEROL SO4 2.5/IPRATROPIUM 0.5 INH SOL 3 ML VIAL.NEB. NEB SCH (16:00)
[2023-08-20] MEDS ORDERED: methylPREDNISolone NA SUCC 40 MG/1 ML VIAL IVPUSH SCH (18:00)
[2023-08-20] MEDS ORDERED: MONTELUKAST NA 10 MG TABLET PO SCH (22:00)
[2023-08-20] MEDS ORDERED: BUDESONIDE/FORMETEROL FUMARATE 160/4.5 mcg INHALER IH SCH (22:00)
== END 2023-08-20 14:54 | disposition left against medical advice (07) ==
LOC: JER 19:38 → JERBED 22:29
PROVIDERS: ADMIT Internal Medicine; ATTEND Internal Medicine
PROC: 3E0F7GC Introduction of Other Therapeutic Substance into Respiratory Tract, Via Natural or Artificial Opening (ICD-10-PCS; principal; 2023-08-19)
PROC: 3E033GC Introduction of Other Therapeutic Substance into Peripheral Vein, Percutaneous Approach (ICD-10-PCS; 2023-08-19)
DX: F10.20 Alcohol dependence, uncomplicated (principal); K70.30 Alcoholic cirrhosis of liver without ascites; J45.909 Unspecified asthma, uncomplicated; F41.8 Other specified anxiety disorders; I10 Essential (primary) hypertension; F25.9 Schizoaffective disorder, unspecified; K80.20 Calculus of gallbladder without cholecystitis without obstruction
CPT/HCPCS: 36415; 71045-TC-FY; 76705-TC; 80048; 80053; 80307; 82962; 83690; 84484; 85025; 87040; 93005; 93010; 94640; 96374; 96375; 96376; 99285-25; G0378

== ENCOUNTER 2024-03-09 13:35 | Inpatient (IN) | payer OTHER ==
[2024-03-09 13:57] VITALS: BMI 30.8
[2024-03-09] MEDS ORDERED: LOPERAMIDE HCL 2 MG CAPSULE PO PRN (13:57)
[2024-03-09] MEDS ORDERED: MAG HYDROX/AL HYDROX/SIMETH 30 ML UNIT-DOSE CUP PO PRN (13:57)
[2024-03-09] MEDS ORDERED: METHOCARBAMOL 500 MG TABLET PO PRN (13:57)
[2024-03-09] MEDS ORDERED: IBUPROFEN 400 MG TABLET (FP) PO PRN (13:57)
[2024-03-09] MEDS ORDERED: BENZOCAINE/MENTHOL (CHLORASEPTIC ) LOZENGE MM PRN (13:57)
[2024-03-09] MEDS ORDERED: BISMUTH SUBSALICYLATE 262 MG/15 ML BTL PO PRN (13:57)
[2024-03-09] MEDS ORDERED: IBUPROFEN 600 MG TABLET (FP) PO PRN (13:57)
[2024-03-09] MEDS ORDERED: POLYETHYLENE GLYCOL (HEALTHYLAX) 3350 17 GM PACKET PO PRN (13:57)
[2024-03-09] MEDS ORDERED: DICYCLOMINE HCL 10 MG CAPSULE PO PRN (13:57)
[2024-03-09] MEDS ORDERED: LORazepam 1 MG TABLET PO PRN (13:57)
[2024-03-09] MEDS ORDERED: ONDANSETRON *ODT* 4 MG TABLET SL PRN (13:57)
[2024-03-09] MEDS ORDERED: ACETAMINOPHEN 325 MG TABLET (FP) PO PRN (13:57)
[2024-03-09] MEDS ORDERED: MAGNESIUM HYDROX 2400MG/30ML ORAL SUSPENSION 30 ML CUP PO PRN (13:57)
[2024-03-09] MEDS ORDERED: NALOXONE (NARCAN) HCL 4 MG/0.1 ML SPRAY NS PRN (13:57)
[2024-03-09] MEDS ORDERED: guaiFENesin 600 MG TABLET.ER (FP) PO PRN (13:57)
[2024-03-09] MEDS ORDERED: BENZONATATE 200 MG CAPSULE PO PRN (13:57)
[2024-03-09] MEDS ORDERED: LORazepam 2 MG TABLET ONE (15:12)
[2024-03-09] MEDS ORDERED: PRENATAL VITAMINS W/ FOLIC ACID TABLET (FP) PO ONE (15:12)
[2024-03-09] MEDS: PRENATAL VITAMINS W/ FOLIC ACID TABLET (FP) PO SCH (15:16)
[2024-03-09] MEDS: NALOXONE (NYS OPIOID OVERDOSE PROGRAM) 4 MG/0.1 ML SPRAY NS ONE (15:52)
[2024-03-09] MEDS: LORazepam 2 MG TABLET PO SCH (16:00)
[2024-03-09] MEDS: ALBUTEROL SO4 HFA INHALER IH PRN (17:42)
[2024-03-09] MEDS: THIAMINE 100 MG TABLET PO SCH (22:24)
[2024-03-09] MEDS: MELATONIN 5 MG TABLETS PO SCH (22:24)
[2024-03-09] MEDS: ACAMPROSATE CALCIUM 333 MG TABLET.DR PO SCH (22:25)
[2024-03-09] MEDS: hydrOXYzine PAMOATE 25 MG CAPSULE (FP) PO PRN (22:25)
[2024-03-09] MEDS: RIFAXIMIN 550 MG TABLET PO SCH (22:52)
[2024-03-10] MEDS: LEVOTHYROXINE NA 25 MCG TABLET (FP) PO SCH (06:06)
[2024-03-10] MEDS ORDERED: ALBUTEROL SO4 0.083% IH SOL 2.5 MG/3 ML VIAL.NEB. NEB PRN (08:35)
[2024-03-10] MEDS: FLUTICASONE/UMECLIDIN/VILANTER(100-62.5-25 TRELEGY ELLIPTA) INAHLER IH SCH (09:28)
[2024-03-10] MEDS: amLODIPine BESYLATE 5 MG TABLET (FP) PO SCH (09:28)
[2024-03-10] MEDS: GABAPENTIN 300 MG CAPSULE PO SCH (09:29)
[2024-03-10] MEDS: FUROSEMIDE 20 MG TABLET (FP) PO SCH (09:29)
[2024-03-10] MEDS: SPIRONOLACTONE 25 MG TABLET PO SCH (09:29)
[2024-03-10] MEDS: NICOTINE 7 MG/24 HOURS TOPICAL PATCH TD SCH (09:31)
[2024-03-10] MEDS: CITALOPRAM HYDROBROMIDE 20 MG TABLET PO SCH (14:24)
[2024-03-10 15:01] LABS: CHLORIDE 93 mmol/L (98-107); POTASSIUM 4.2 mmol/L (3.5-5.1); SODIUM 128 mmol/L (136-145)
[2024-03-10 15:03] LABS: HEMATOCRIT 42.3 % (32.4-45.2); HEMOGLOBIN 14.1 GM/dL (10.7-15.3); MCH 33.2 pg (25.7-33.7); MCHC 33.5 g/dl (32.0-36.0); MEAN CELL VOLUME 99.3 fl (80-96); MEAN PLT VOLUME 9.5 fl (7.5-11.1); PLATELET COUNT 215 10^3/uL (134-434); RBC 4.25 M/mm3 (3.60-5.2); RDW 13.5 % (11.6-15.6); WHITE BLOOD COUNT 13.1 K/mm3 (4.0-10.0)
[2024-03-10 15:09] LABS: ALBUMIN 3.3 g/dl (3.4-5.0); ANION GAP 5 mmol/L (4-13); BLOOD UREA NITROGEN 13.1 mg/dL (7-18); CALCIUM 9.4 mg/dL (8.5-10.1); CO2 30 mmol/L (21-32); GLUCOSE,RANDOM 145 mg/dL (74-106)
[2024-03-10 15:11] LABS: SGPT/ALT 82 U/L (13-61)
[2024-03-10 15:12] LABS: SGOT/AST 82 U/L (15-37)
[2024-03-10 15:13] LABS: CREATININE 0.9 mg/dL (0.55-1.3); TOT PROT 8.2 g/dl (6.4-8.2)
[2024-03-10 15:14] LABS: ALK PHOS 249 U/L (45-117)
[2024-03-10] MEDS: LACTULOSE 20 GM/30 ML UDC (FOR ORAL USE ONLY) PO SCH (22:32)
[2024-03-10] MEDS: QUEtiapine FUMARATE 100 MG TABLET (FP) PO SCH (22:32)
[2024-03-10] MEDS: HALOPERIDOL 5 MG TABLET PO SCH (22:35)
[2024-03-11] MEDS: LORazepam 1 MG TABLET PO SCH (05:55)
[2024-03-11] MEDS: SPIRONOLACTONE 25 MG TABLET PO SCH (06:31)
[2024-03-11] MEDS ORDERED: NALOXONE (NYS OPIOID OVERDOSE PROGRAM) 4 MG/0.1 ML SPRAY NS PRN (14:24)
[2024-03-12] MEDS ORDERED: LORazepam 0.5 MG TABLET PO PRN
[2024-03-12] MEDS: NALOXONE (NYS OPIOID OVERDOSE PROGRAM) 4 MG/0.1 ML SPRAY NS ONE (00:16)
[2024-03-12] MEDS: LORazepam 0.5 MG TABLET PO SCH (05:44)
[2024-03-12 13:38] VITALS: RESP 16
[2024-03-13] MEDS: LORazepam 0.5 MG TABLET PO ONE (05:21)
[2024-03-13 09:38] VITALS: BP 122/65; PULSE 63; TEMP 97.6
== END 2024-03-13 10:16 | disposition home or self-care (01) | DRG 775 ==
LOC: YASAS 13:35 → Y6N 15:12
PROVIDERS: ADMIT Allergy & Immunology; ATTEND Surgery
PROC: HZ2ZZZZ Detoxification Services for Substance Abuse Treatment (ICD-10-PCS; principal; 2024-03-09)
DX: F10.230 Alcohol dependence with withdrawal, uncomplicated (principal); F25.1 Schizoaffective disorder, depressive type; E72.20 Disorder of urea cycle metabolism, unspecified; E03.9 Hypothyroidism, unspecified; I10 Essential (primary) hypertension; K70.30 Alcoholic cirrhosis of liver without ascites; J45.20 Mild intermittent asthma, uncomplicated; M54.50 Low back pain, unspecified; G89.29 Other chronic pain; Z87.891 Personal history of nicotine dependence
CPT/HCPCS: 0241U-QW; 36415; 71045-TC-FY; 80053; 80305; 80307; 82140; 85027; 86780; 87811; 93005; 93010